=== PATIENT | female | born 1965 | race Caucasian/White ===

== ENCOUNTER → 2018-01-31 | Outpatient (CLI) | payer BC ==
[2018-01-31 16:43] VITALS: BP 115/61; PULSE 68; TEMP 97.8; BMI 56.0
--- NOTE | 2018-01-31 17:14 | P.HPBAR ---
Bariatric H&P - History & Physicial H&P Date: 01/31/18 History & Physicial: Visit/CC: initial clinic visit Patient initial contact: Initial weight: Initial weight in pounds: Height: 5 ft 5 in Initial BMI: Last weight: Current weight: 152.861 kg Current weight in pounds: 337.00 Current BMI: 56.0 [place] body weight (based on NIH guidelines): 56.699 kg Excess body weight loss: The patient is a 52 year-old F who presents for Bariatric Assessment. HPI: She is looking into the sleeve. She has a brother who had wieght loss surgery. Highest weight 350 pounds. Mild GERD. PLAN: 1. Get labs. 2. Follow-up shortly. Past Medical History Past Medical History: Diabetes Mellitus, Hyperlipidemia, Hypertension History of Any Multi-Drug Resistant Organisms: None Reported Past Surgical History: Cholecystectomy, Orthopedic Surgery, Tonsillectomy Additional Past Surgical History / Comment(s): bilateral knee arthroscopic surgery Past Anesthesia/Blood Transfusion Reactions: No Reported Reaction Past Psychological History: No Psychological Hx Reported Smoking Status: Never smoker Past Alcohol Use History: None Reported Surgical - Exam Vital Signs Temp Pulse BP 97.8 F 68 115/61 01/31/18 16:40 01/31/18 16:40 01/31/18 16:40 Bariatric Checklist Checklist: Plan: Checklist: EGD: 1. Hiatal hernia: 2. H. Pylori: HgbA1c: Vitamin D: Smoking: Never smoker Primary care physician referral: josefa doe Psychiatry clearance: Cardiology clearance: Sleep study: Diet journal: VTE risk score: VTE risk level: Rehab needs at discharge:
[2018-01-31 18:29] LABS: HCT 40.2 % (34.0-46.0); HGB 13.1 gm/dL (11.4-16.0); MCH 28.8 pg (25.0-35.0); MCHC 32.7 g/dL (31.0-37.0); MCV 88.2 fL (80.0-100.0); Mean Platelet Volume 7.5; Platelet Count 271 k/uL (150-450); RBC 4.56 m/uL (3.80-5.40); RDW 13.8 % (11.5-15.5); WBC 11.7 k/uL (3.8-10.6)
[2018-02-01 04:02] LABS: Iron Saturation 10.27 (12.00-45.00)
[2018-02-01 04:08] LABS: Albumin 4.8 g/dL (3.80-4.90); Anion Gap 11.1 mmol/L (4.00-12.00); Calcium 10.8 mg/dL (8.7-10.3); Carbon Dioxide 27.9 mmol/L (21.6-31.8); Globulin 1.6 g/dL (2.1-3.7); LDL Cholesterol,Calculated 106.4 mg/dL (0.0-131.0); Potassium 4.5 mmol/L (3.5-5.5); Total Bilirubin 0.4 mg/dL (0.3-1.2); Total Protein 6.4 g/dL (6.2-8.2); VLDL Calculation 35.6 mg/dL (5.00-40.00)
[2018-02-01 04:11] LABS: Vitamin D 25 Hydroxy 54.1 ng/mL (30.0-100.0)
[2018-02-01 04:35] LABS: Folate, Serum 15.1 ng/mL
== END ==
LOC: BARWHC3 15:07
PROVIDERS: ATTEND Surgery Plastic and Reconstructive Surgery
DX: E88.81 Metabolic syndrome and other insulin resistance (principal); E66.01 Morbid (severe) obesity due to excess calories; K21.9 Gastro-esophageal reflux disease without esophagitis; E44.0 Moderate protein-calorie malnutrition; E55.9 Vitamin D deficiency, unspecified; I11.9 Hypertensive heart disease without heart failure; G47.30 Sleep apnea, unspecified; Z68.43 Body mass index [BMI] 50.0-59.9, adult; Z90.49 Acquired absence of other specified parts of digestive tract; Z90.89 Acquired absence of other organs; Z98.890 Other specified postprocedural states
CPT/HCPCS: 36415; 80053; 80061; 82306; 82607; 82728; 82746; 83036; 83540; 83550; 84425; 84443; 85027; 99211

== ENCOUNTER 2018-03-05 09:00 | Day surgery (SDC) | payer BC ==
[2018-02-28 09:20] VITALS: BMI 56.0
--- NOTE | 2018-03-05 06:03 | P.GSHP ---
History of Present Illness H&P Date: 03/05/18 CHIEF COMPLAINT: GERD HISTORY OF PRESENT ILLNESS: The patient is a 52-year-old female who presents reports gastroesophageal reflux disease. Upper endoscopy was offered for further evaluation and management. PAST MEDICAL HISTORY: Please see list. PAST SURGICAL HISTORY: Please see list. MEDICATIONS: Please see list. ALLERGIES: Please see list. SOCIAL HISTORY: No illicit drug use FAMILY HISTORY: No reports of Crohn disease or ulcerative colitis. REVIEW OF ORGAN SYSTEMS: CONSTITUTIONAL: No reports of fevers or chills. GI: Denies any blood in stools or constipation. PHYSICAL EXAM: VITAL SIGNS: Stable GENERAL: Well-developed and pleasant in no acute distress. HEENT: No scleral icterus. Extraocular movements grossly intact. Moist buccal mucosa. NECK: Supple without lymphadenopathy. CHEST: Unlabored respirations. Equal bilateral excursions. CARDIOVASCULAR: Regular rate and rhythm. Distal 2+ pulses. ABDOMEN: Soft, nondistended. MUSCULOSKELETAL: No clubbing, cyanosis, or edema. ASSESSMENT: 1. Gastroesophageal reflux disease PLAN: 1. Recommend proceeding with an upper endoscopy Past Medical History Past Medical History: Diabetes Mellitus, Hyperlipidemia, Hypertension History of Any Multi-Drug Resistant Organisms: None Reported Past Surgical History: Cholecystectomy, Orthopedic Surgery, Tonsillectomy Additional Past Surgical History / Comment(s): bilateral knee arthroscopic surgery Past Anesthesia/Blood Transfusion Reactions: No Reported Reaction Smoking Status: Never smoker - Past Family History Mother Family Medical History: Cancer Medications and Allergies Home Medications Medication Instructions Recorded Confirmed Type Atorvastatin [Lipitor] 20 mg PO DAILY 02/01/18 02/28/18 History Levocetirizine Dihydrochloride 5 mg PO HS 02/01/18 02/28/18 History [Xyzal] Lisinopril-Hctz 20-25 mg 1 tab PO DAILY 02/01/18 02/28/18 History [Zestoretic 20-25] Metoprolol Succinate (ER) [Toprol 100 mg PO DAILY 02/01/18 02/28/18 History XL] Potassium Chloride ER [K-Dur 10] 10 meq PO DAILY 02/01/18 02/28/18 History metFORMIN HCL [Glucophage] 500 mg PO DAILY 02/01/18 02/28/18 History Aspirin EC [Ecotrin Low Dose] 81 mg PO DAILY 02/28/18 02/28/18 History Allergies Allergy/AdvReac Type Severity Reaction Status Date / Time Sulfa (Sulfonamide Allergy Rash/Hives Verified 02/28/18 09:16 Antibiotics)
[~2018-03-05 09:00] MED LIST: LACTATED RINGERS 1,000 ML IV SCH; LIDOCAINE 1% 20 ML VIAL (10MG/ML) FOR IV START INTRADERMA PRN
[2018-03-05 09:27] LABS: Glucose,Whole Blood 120 mg/dL (75-99)
[2018-03-05 09:29] VITALS: RESP 16; TEMP 97.1
[2018-03-05] MEDS ORDERED: PROPOFOL 10 MG/ML 20 ML VIAL IV ONE (10:16)
[2018-03-05 11:45] VITALS: BP 113/78; PULSE 63
--- NOTE | 2018-03-14 10:00 | P.PCN ---
Date of Procedure: 03/05/18 Description of Procedure: PREOPERATIVE DIAGNOSIS: Gastroesophageal reflux disease. Morbid obesity. POSTOPERATIVE DIAGNOSIS: Morbid obesity. Gastritis. Gastric ulcer along antrum with recent bleed Erosive esophagitis Gastroesophageal reflux disease. Diaphragmatic hiatal hernia OPERATION: Esophagogastroduodenoscopy with biopsies along antrum. SURGEON: Mayra Leyva MD ANESTHESIA: MAC. INDICATIONS: The patient is a 52-year-old female who presents with a history of reflux disease. Benefits and risks of the procedure were described. Informed consent was obtained. DESCRIPTION: The patient was brought into the endoscopy suite and laid in the left lateral decubitus position. An Olympus gastroscope was passed along the posterior oropharynx down to the distal esophagus where the squamocolumnar junction was encountered at 40 cm from the incisors. The stomach was entered and no bile reflux was found. Additional findings are listed below. Biopsies with cold forceps were obtained of the antrum. The first through third portion of the duodenum was examined and unremarkable. Retroflexion of the scope confirmed Hill grade 3 lower esophageal valve. The squamocolumnar junction demonstrated LA grade B erosive esophagitis. The stomach was desufflated. The patient tolerated the procedure well. FINDINGS: Squamocolumnar junction 37 cm from the incisors. Diaphragmatic hiatus at 40 cm. Hiatal hernia, 3 cm Hill grade 3 lower esophageal valve. LA grade B erosive esophagitis. No active duodenitis. Acute gastric ulcer along antrum with recent bleed Gastritis RECOMMENDATIONS: Upper endoscopy as needed. Plan - Discharge Summary New Discharge Prescriptions: No Action Levocetirizine Dihydrochloride [Xyzal] 5 mg PO HS metFORMIN HCL [Glucophage] 500 mg PO DAILY Potassium Chloride ER [K-Dur 10] 10 meq PO DAILY Metoprolol Succinate (ER) [Toprol XL] 100 mg PO DAILY Lisinopril-Hctz 20-25 mg [Zestoretic 20-25] 1 tab PO DAILY Atorvastatin [Lipitor] 20 mg PO DAILY Aspirin EC [Ecotrin Low Dose] 81 mg PO DAILY Omeprazole 40 mg PO DAILY #30 capsule.dr Discharge Medication List Atorvastatin [Lipitor] 20 mg PO DAILY 02/01/18 [History] Levocetirizine Dihydrochloride [Xyzal] 5 mg PO HS 02/01/18 [History] Lisinopril-Hctz 20-25 mg [Zestoretic 20-25] 1 tab PO DAILY 02/01/18 [History] Metoprolol Succinate (ER) [Toprol XL] 100 mg PO DAILY 02/01/18 [History] Potassium Chloride ER [K-Dur 10] 10 meq PO DAILY 02/01/18 [History] metFORMIN HCL [Glucophage] 500 mg PO DAILY 02/01/18 [History] Aspirin EC [Ecotrin Low Dose] 81 mg PO DAILY 02/28/18 [History] Omeprazole 40 mg PO DAILY #30 capsule. 03/05/18 [Rx] Follow up Appointment(s)/Referral(s): Mayra Leyva MD [STAFF PHYSICIAN] - As Needed Patient Instructions/Handouts: *Surgery [facility] - (Anesthesia) Endoscopy Discharge Instructions, Peptic Ulcer (DC), Hiatal Hernia (DC), Upper Endoscopy (DC) Activity/Diet/Wound Care/Special Instructions: SCRIPT AT [facility]. STOP ALEVE AND TAKE TYENOL FOR DISCOMFORT. Discharge Disposition: HOME SELF-CARE
== END 2018-03-05 11:44 | disposition home or self-care (01) ==
LOC: ORWHC2ENDO 09:00
PROVIDERS: ATTEND Surgery Plastic and Reconstructive Surgery
DX: K29.51 Unspecified chronic gastritis with bleeding (principal); K22.10 Ulcer of esophagus without bleeding; E11.9 Type 2 diabetes mellitus without complications; E78.5 Hyperlipidemia, unspecified; I10 Essential (primary) hypertension; K44.9 Diaphragmatic hernia without obstruction or gangrene; E66.01 Morbid (severe) obesity due to excess calories; Z68.43 Body mass index [BMI] 50.0-59.9, adult; Z79.84 Long term (current) use of oral hypoglycemic drugs; Z79.82 Long term (current) use of aspirin; Z79.899 Other long term (current) drug therapy; Z88.2 Allergy status to sulfonamides
CPT/HCPCS: 88305; 43239; J2704

== ENCOUNTER → 2018-04-02 | Outpatient (CLI) | payer BC ==
[2018-04-02 12:02] VITALS: BMI 55.1
== END ==
LOC: BARWHC3 08:42
PROVIDERS: ATTEND Surgery Plastic and Reconstructive Surgery
DX: E66.01 Morbid (severe) obesity due to excess calories (principal); Z71.3 Dietary counseling and surveillance; Z68.43 Body mass index [BMI] 50.0-59.9, adult
CPT/HCPCS: 97804

== ENCOUNTER → 2018-04-04 | Outpatient (CLI) | payer BC ==
--- NOTE | 2018-04-04 12:59 | P.PN ---
Subjective Progress Note Date: 04/04/18 DATE OF SERVICE: 04/04/2018 CHIEF COMPLAINT: Bariatric assessment HISTORY OF PRESENT ILLNESS: Whitney Shelby is a 52-year-old female who comes with lifelong morbid obesity. Her highest weight was 350 pounds. She is looking into the sleeve. She had an upper endoscopy showing gastric ulcers. She responded well to Omeprazole. At height of 5 feet 5 inches, her ideal body weight is 149 pounds. Her highest weight was 350 pounds. Today she comes in 332 pounds from 336 pounds, 2 months ago. She has lost 4 pounds in 2 months. Her body mass index highest was 58.4. Today her BMI is 55.4. She is 183 pounds overweight. PAST MEDICAL HISTORY: 1. Morbid obesity due to excess calories 2. Body mass index of 58.4, initial 3. Hyperlipidemia 4. Diabetes type 2, [id number] 5. Hypertensive heart disease 6. Seasonal ALLERGIES 7. Osteoarthritis bilateral knees PAST SURGICAL HISTORY: 1. Tonsillectomy 2. Cholecystectomy 3. Bilateral knee arthroscopy HOME MEDICATIONS: ALLERGIES: Home Medications Medication Instructions Recorded Confirmed Type Atorvastatin [Lipitor] 20 mg PO DAILY 02/01/18 03/05/18 History Levocetirizine Dihydrochloride 5 mg PO HS 02/01/18 03/05/18 History [Xyzal] Lisinopril-Hctz 20-25 mg 1 tab PO DAILY 02/01/18 03/05/18 History [Zestoretic 20-25] Metoprolol Succinate (ER) [Toprol 100 mg PO DAILY 02/01/18 03/05/18 History XL] Potassium Chloride ER [K-Dur 10] 10 meq PO DAILY 02/01/18 03/05/18 History metFORMIN HCL [Glucophage] 500 mg PO DAILY 02/01/18 03/05/18 History Aspirin EC [Ecotrin Low Dose] 81 mg PO DAILY 02/28/18 03/05/18 History Omeprazole 40 mg PO DAILY #30 capsule. 03/05/18 Rx Allergies Allergy/AdvReac Type Severity Reaction Status Date / Time Sulfa (Sulfonamide Allergy Rash/Hives Verified 03/05/18 09:14 Antibiotics) SOCIAL HISTORY: No Past tobacco use. FAMILY HISTORY: No family history of ulcerative colitis disease or Crohn's disease. Family history of morbid obesity. No lupus in the family. No reports of stomach or esophageal cancer. REVIEW OF ORGAN SYSTEMS: CONSTITUTIONAL: At height of 5 feet 5 inches, her ideal body weight is 149 pounds. Her highest weight was 350 pounds. Her body mass index highest was 58.4 HEENT: Denies any active troubles with vision or hearing. No troubles with swallowing. ENDOCRINE: Has diabetes. No hypothyroidism. CARDIOVASCULAR: No reports of palpitations or heart attacks or chest pain. RESPIRATORY: Has daytime somnolence. No asthma. GI: Denies any bright red blood per rectum. No diarrhea. No constipation. MUSCULOSKELETAL: Has lower back pain and joint pain. Has osteoarthritis of the knees. NEURO: No headaches. No seizure disorders. PSYCH: No depression. No suicidal ideation. RHEUMATOLOGIC: No lupus. No rheumatoid arthritis. HEMATOLOGIC: Denies any abnormal bleeding or bruising. No personal history of DVTs. SKIN: No rash. No skin cancer. PHYSICAL EXAM: VITAL SIGNS: Height 5 foot 5 inches, weight 336 pounds. BMI 56.1 Vital Signs Temp 98 F 04/04/18 13:34 Pulse 66 04/04/18 13:34 Resp BP 123/74 04/04/18 13:34 Pulse Ox GENERAL: Well-developed in no acute distress. HEENT: No scleral icterus. Extraocular movements grossly intact. Hears conversational speech. No nasal drainage. NECK: Supple without lymphadenopathy. CHEST: Nonlabored respirations with equal bilateral excursions. CARDIOVASCULAR: Regular rate and regular rhythm. Distal 2+ pulses. ABDOMEN: Obese, soft, nontender, nondistended. MUSCULOSKELETAL: No clubbing, cyanosis. Gross strength 5/5 distal lower extremities. NEURO: No focal or lateralizing signs. Cranial nerves 2 through 12 grossly within normal limits. PSYCH: Appropriate affect. Alert and oriented to person, place and time. SKIN: Good skin turgor. Well perfused. LABS: Labs reviewed. EGD FINDINGS: Squamocolumnar junction 37 cm from the incisors. Diaphragmatic hiatus at 40 cm. Hiatal hernia, 3 cm Hill grade 3 lower esophageal valve. LA grade B erosive esophagitis. No active duodenitis. Acute gastric ulcer along antrum with recent bleed Gastritis Final Pathologic Diagnosis GASTRIC ANTRUM, BIOPSY: Chronic gastritis with reactive mucosal changes. Helicobacter organisms are not identified on routine H+E stained sections. ASSESSMENT: 1. Morbid obesity due to excess calories 2. Body mass index of 58.4, initial 3. Hyperlipidemia 4. Diabetes type 2, [id number] 5. Hypertensive heart disease 6. Seasonal ALLERGIES 7. Osteoarthritis bilateral knees 8. Hiatal hernia 9. Gastric ulcer 10. Chronic gastritis PLAN: 1. Bariatric options between a sleeve, band and a Cris-en-Y gastric bypass were reviewed in detail. The patient elected for a sleeve gastrectomy. Robotic assisted approach described. 2. The [place] [facility] Data was also reviewed with benefits and risks as described. 3. An 8 page second-generation bariatric consent form was reviewed in detail including potential of bleeding, infection, leaks, adequate weight loss, nutritional deficiencies which the patient demonstrated understanding of the risks. 4. A 2 week high-protein low caloric 800 kcal diet described to address hepatomegaly. 5. Preoperative labs including complete metabolic panel and CBC with type and screen recommended. 6. DVT prophylaxis per [place] [facility]. 7. Antibiotic prophylaxis. 8. Inpatient hospitalization anticipated for more than 2 nights. 9. All questions and concerns were addressed with the patient. 10. We went over expections for surgery. 11. Sleeve gastrectomy expectations reviewed.
[2018-04-04 13:36] VITALS: BP 123/74; PULSE 66; TEMP 98; BMI 55.4
== END | disposition home or self-care (01) ==
LOC: BARWHC3 11:54
PROVIDERS: ATTEND Surgery Plastic and Reconstructive Surgery
DX: E66.01 Morbid (severe) obesity due to excess calories (principal); K25.9 Gastric ulcer, unspecified as acute or chronic, without hemorrhage or perforation; E78.5 Hyperlipidemia, unspecified; E11.9 Type 2 diabetes mellitus without complications; I11.9 Hypertensive heart disease without heart failure; J30.2 Other seasonal allergic rhinitis; K29.50 Unspecified chronic gastritis without bleeding; K44.9 Diaphragmatic hernia without obstruction or gangrene; M17.0 Bilateral primary osteoarthritis of knee; Z90.49 Acquired absence of other specified parts of digestive tract; Z90.89 Acquired absence of other organs; Z98.890 Other specified postprocedural states; Z79.84 Long term (current) use of oral hypoglycemic drugs; Z68.43 Body mass index [BMI] 50.0-59.9, adult; Z79.82 Long term (current) use of aspirin; Z79.899 Other long term (current) drug therapy; Z88.2 Allergy status to sulfonamides
CPT/HCPCS: 99211

== ENCOUNTER → 2018-05-05 | Outpatient (CLI) | payer BC ==
[2018-05-05 11:32] LABS: Basophils % (A) 1 %; Eosinophils # (A) 0.1 k/uL (0-0.7); Eosinophils % (A) 2 %; HCT 38.7 % (34.0-46.0); HGB 12.6 gm/dL (11.4-16.0); Lymphocytes # (A) 1.4 k/uL (1.0-4.8); Lymphocytes % (A) 18 %; MCH 28.9 pg (25.0-35.0); MCHC 32.5 g/dL (31.0-37.0); MCV 88.9 fL (80.0-100.0); Mean Platelet Volume 7.5; Monocytes # (A) 0.5 k/uL (0-1.0); Monocytes % (A) 6 %; Neutrophils # (A) 5.4 k/uL (1.3-7.7); Neutrophils % (A) 72 %; Platelet Count 245 k/uL (150-450); RBC 4.35 m/uL (3.80-5.40); WBC 7.5 k/uL (3.8-10.6)
[2018-05-05 11:51] LABS: Albumin 4.6 g/dL (3.5-5.0); Calcium 10.4 mg/dL (8.4-10.2); Potassium 5.2 mmol/L (3.5-5.1); Total Bilirubin 0.6 mg/dL (0.2-1.3); Total Protein 7.2 g/dL (6.3-8.2)
== END ==
LOC: LABPAT 10:50
PROVIDERS: ATTEND Surgery Plastic and Reconstructive Surgery
DX: Z01.812 Encounter for preprocedural laboratory examination (principal)
CPT/HCPCS: 36415; 80053; 85025

== ENCOUNTER 2018-05-14 05:49 | Inpatient (IN) | payer BC ==
[~2018-05-14 05:49] MED LIST changes: +DEXAMETHASONE SOD PHOSPHATE 10 MG/ML 1 ML VIAL IV ONE; -LACTATED RINGERS 1,000 ML IV SCH; -LIDOCAINE 1% 20 ML VIAL (10MG/ML) FOR IV START INTRADERMA PRN; +MORPHINE SULFATE 4 MG/ML SYRINGE IV PRN; +ONDANSETRON 4 MG/2 ML VIAL IVP ONE; +ceFAZolin 3 GM in SODIUM CHLORIDE 0.9% 100 ML IVPB ONE
[2018-05-14] MEDS ORDERED: PANTOPRAZOLE 40 MG/10 ML VIAL IV STA (05:57)
[2018-05-14] MEDS ORDERED: CHLORHEXIDINE GLUCONATE 15 ML CUP MUCOUS MEM ONE (05:57)
[2018-05-14] MEDS ORDERED: ENOXAPARIN 40 MG/0.4 ML SYRINGE SQ STA (05:57)
[2018-05-14] MEDS ORDERED: SCOPOLAMINE 1.5MG/72HR PATCH TRANSDERM STA (05:57)
--- NOTE | 2018-05-14 06:06 | P.GSHP ---
History of Present Illness H&P Date: 05/14/18 DATE OF SERVICE: 05/14/2018 CHIEF COMPLAINT: Morbid obesity HISTORY OF PRESENT ILLNESS: Whitney Shelby is a 52-year-old female who comes with lifelong morbid obesity. Her highest weight was 350 pounds. She is looking into the sleeve. At height of 5 feet 5 inches, her ideal body weight is 149 pounds. Her highest weight was 350 pounds. Today she comes in 333 pounds from 332 pounds, 1 monthsago. She has gained 1 pound. Her body mass index highest was 58.4. Today her BMI is 55.4. She is 184 pounds overweight. PAST MEDICAL HISTORY: 1. Morbid obesity due to excess calories 2. Body mass index of 58.4, initial 3. Hyperlipidemia 4. Diabetes type 2, [id number] 5. Hypertensive heart disease 6. Seasonal ALLERGIES 7. Osteoarthritis bilateral knees PAST SURGICAL HISTORY: 1. Tonsillectomy 2. Cholecystectomy 3. Bilateral knee arthroscopy HOME MEDICATIONS: ALLERGIES: Home Medications Medication Instructions Recorded Confirmed Type Atorvastatin [Lipitor] 20 mg PO DAILY 02/01/18 03/05/18 History Levocetirizine Dihydrochloride 5 mg PO HS 02/01/18 03/05/18 History [Xyzal] Lisinopril-Hctz 20-25 mg 1 tab PO DAILY 02/01/18 03/05/18 History [Zestoretic 20-25] Metoprolol Succinate (ER) [Toprol 100 mg PO DAILY 02/01/18 03/05/18 History XL] Potassium Chloride ER [K-Dur 10] 10 meq PO DAILY 02/01/18 03/05/18 History metFORMIN HCL [Glucophage] 500 mg PO DAILY 02/01/18 03/05/18 History Aspirin EC [Ecotrin Low Dose] 81 mg PO DAILY 02/28/18 03/05/18 History Omeprazole 40 mg PO DAILY #30 capsule. 03/05/18 Rx Allergies Allergy/AdvReac Type Severity Reaction Status Date / Time Sulfa (Sulfonamide Allergy Rash/Hives Verified 03/05/18 09:14 Antibiotics) SOCIAL HISTORY: No Past tobacco use. FAMILY HISTORY: No family history of ulcerative colitis disease or Crohn's disease. Family history of morbid obesity. No lupus in the family. No reports of stomach or esophageal cancer. REVIEW OF ORGAN SYSTEMS: CONSTITUTIONAL: At height of 5 feet 5 inches, her ideal body weight is 149 pounds. Her highest weight was 350 pounds. Her body mass index highest was 58.4 HEENT: Denies any active troubles with vision or hearing. No troubles with swallowing. ENDOCRINE: Has diabetes. No hypothyroidism. CARDIOVASCULAR: No reports of palpitations or heart attacks or chest pain. RESPIRATORY: Has daytime somnolence. No asthma. GI: Denies any bright red blood per rectum. No diarrhea. No constipation. MUSCULOSKELETAL: Has lower back pain and joint pain. Has osteoarthritis of the knees. NEURO: No headaches. No seizure disorders. PSYCH: No depression. No suicidal ideation. RHEUMATOLOGIC: No lupus. No rheumatoid arthritis. HEMATOLOGIC: Denies any abnormal bleeding or bruising. No personal history of DVTs. SKIN: No rash. No skin cancer. PHYSICAL EXAM: VITAL SIGNS: Height 5 foot 5 inches, weight 336 pounds. BMI 56.1 GENERAL: Well-developed in no acute distress. HEENT: No scleral icterus. Extraocular movements grossly intact. Hears conversational speech. No nasal drainage. NECK: Supple without lymphadenopathy. CHEST: Nonlabored respirations with equal bilateral excursions. CARDIOVASCULAR: Regular rate and regular rhythm. Distal 2+ pulses. ABDOMEN: Obese, soft, nontender, nondistended. MUSCULOSKELETAL: No clubbing, cyanosis. Gross strength 5/5 distal lower extremities. NEURO: No focal or lateralizing signs. Cranial nerves 2 through 12 grossly within normal limits. PSYCH: Appropriate affect. Alert and oriented to person, place and time. SKIN: Good skin turgor. Well perfused. LABS: Labs reviewed. ASSESSMENT: 1. Morbid obesity due to excess calories 2. Body mass index of 58.4, initial 3. Hyperlipidemia 4. Diabetes type 2, [id number] 5. Hypertensive heart disease 6. Seasonal ALLERGIES 7. Osteoarthritis bilateral knees 8. Hiatal hernia 9. Gastric ulcer 10. Chronic gastritis 11. Renal insufficiency 12. Hyperkalemia PLAN: 1. Bariatric options between a sleeve, band and a Cris-en-Y gastric bypass were reviewed in detail. The patient elected for a sleeve gastrectomy. Robotic assisted approach described. 2. The [place] [facility] Data was also reviewed with benefits and risks as described. 3. An 8 page second-generation bariatric consent form was reviewed in detail including potential of bleeding, infection, leaks, adequate weight loss, nutritional deficiencies which the patient demonstrated understanding of the risks. 4. A 2 week high-protein low caloric 800 kcal diet described to address hepatomegaly. 5. Preoperative labs including complete metabolic panel and CBC with type and screen recommended. 6. DVT prophylaxis per [place] [facility]. 7. Antibiotic prophylaxis. 8. Inpatient hospitalization anticipated for more than 2 nights. 9. All questions and concerns were addressed with the patient. 10. We went over expections for surgery. 11. Sleeve gastrectomy expectations reviewed. 12. Repeat CMP with optimal fluid resuscitation and lowered protein intake advised. 13. Discontinue exogenous source of potassium Past Medical History Past Medical History: Diabetes Mellitus, GERD/Reflux, Hyperlipidemia, Hypertension, Osteoarthritis (OA) Additional Past Medical History / Comment(s): EGD SHOWED GASTRIC ULCER, HIATAL HERNIA. PAIN IN KNEES. History of Any Multi-Drug Resistant Organisms: None Reported Past Surgical History: Cholecystectomy, Orthopedic Surgery, Tonsillectomy Additional Past Surgical History / Comment(s): bilateral knee arthroscopic surgery. EGD Past Anesthesia/Blood Transfusion Reactions: No Reported Reaction Smoking Status: Never smoker - Past Family History Mother Family Medical History: Cancer Medications and Allergies Home Medications Medication Instructions Recorded Confirmed Type Atorvastatin [Lipitor] 20 mg PO DAILY 02/01/18 05/04/18 History Levocetirizine Dihydrochloride 5 mg PO HS 02/01/18 05/04/18 History [Xyzal] Lisinopril-Hctz 20-25 mg 1 tab PO DAILY 02/01/18 05/04/18 History [Zestoretic 20-25] Metoprolol Succinate (ER) [Toprol 100 mg PO DAILY 02/01/18 05/04/18 History XL] Potassium Chloride ER [K-Dur 10] 10 meq PO DAILY 02/01/18 05/04/18 History metFORMIN HCL [Glucophage] 500 mg PO DAILY 02/01/18 05/04/18 History Omeprazole 40 mg PO DAILY #30 capsule. 03/05/18 05/04/18 Rx Ferrous Sulfate [Iron (65 MG 65 mg PO BID 04/03/18 05/04/18 History Elemental)] Acetaminophen [Tylenol Arthritis] 1,300 mg PO BID 05/04/18 05/04/18 History Calcium Carbonate [Tums] 500 mg PO QID PRN 05/07/18 05/07/18 History Allergies Allergy/AdvReac Type Severity Reaction Status Date / Time Sulfa (Sulfonamide Allergy Rash/Hives Verified 05/04/18 16:08 Antibiotics)
[2018-05-14] MEDS: LACTATED RINGERS 1,000 ML IV SCH ×2 (06:43→17:07)
[2018-05-14 06:45] LABS: Glucose,Whole Blood 98 mg/dL (75-99)
[2018-05-14] MEDS ORDERED: LIDOCAINE 1% 20 ML VIAL (10MG/ML) FOR IV START INTRADERMA ONE (06:46)
[2018-05-14] MEDS ORDERED: DEXAMETHASONE SOD PHOS (MDV) 100 MG/10 ML VIAL IV ONE (06:58)
[2018-05-14] MEDS ORDERED: ONDANSETRON 4 MG/2 ML VIAL IVP ONE (06:59)
[2018-05-14 07:17] LABS: Albumin 4.6 g/dL (3.5-5.0); Calcium 10.3 mg/dL (8.4-10.2); Potassium 4.8 mmol/L (3.5-5.1); Total Bilirubin 0.6 mg/dL (0.2-1.3); Total Protein 7.1 g/dL (6.3-8.2)
[2018-05-14] MEDS ORDERED: ROCURONIUM BROMIDE 10 MG/ML 10 ML VIAL IV ONE (07:25)
[2018-05-14] MEDS ORDERED: NEOSTIGMINE 1 MG/ML 10 ML VIAL ONE (07:25)
[2018-05-14] MEDS ORDERED: ePHEDrine SULFATE/0.9% NACL/PF 50 MG/5 ML SYRINGE IV ONE (07:25)
[2018-05-14] MEDS ORDERED: SUCCINYLCHOLINE CHLORIDE 100 MG/5 ML SYR IV ONE (07:25)
[2018-05-14] MEDS ORDERED: GLYCOPYRROLATE 0.2 MG/ML 2 ML VIAL ONE (07:25)
[2018-05-14] MEDS ORDERED: fentaNYL (PF) 50 MCG/ML 2 ML AMP ONE (07:25)
[2018-05-14] MEDS ORDERED: LIDOCAINE 1% INJ 10MG/ML (20 ML MDV) ONE (07:25)
[2018-05-14] MEDS ORDERED: MIDAZOLAM 2 MG/2 ML VIAL ONE (07:25)
[2018-05-14] MEDS ORDERED: PROPOFOL 10 MG/ML 20 ML VIAL IV ONE (07:25)
[2018-05-14] MEDS ORDERED: PHENYLEPHRINE-0.9% NACL SYG 1 MG/10 ML SYRINGE ONE (07:25)
[2018-05-14] MEDS ORDERED: BUPIVACAIN-EPI 0.5%-1:200,000 30 ML VIAL SQ ONE (07:27)
[2018-05-14] MEDS ORDERED: LACTATED RINGERS 1,000 ML IV ONE (08:16)
[2018-05-14] MEDS ORDERED: IV FLUID CONTINUATION 1,000 ML IV ONE ×5 (09:50)
[2018-05-14] MEDS ORDERED: NALOXONE 0.4 MG/ML 1 ML VIAL IV PRN (10:23)
[2018-05-14 10:27] LABS: Glucose,Whole Blood 158 mg/dL (75-99)
[2018-05-14] MEDS: HYDROmorphone 0.5 MG/0.5 ML SYRINGE IVP PRN ×4 (10:29→10:52)
[2018-05-14] MEDS ORDERED: ONDANSETRON 4 MG/2 ML VIAL IVP PRN (10:32)
--- NOTE | 2018-05-14 10:50 | P.OP ---
Date of Procedure: 05/14/18 Description of Procedure: SURGEON: CLINT REINOSO MD PREOPERATIVE DIAGNOSES: 1. Morbid obesity due to excess calories 2. Body mass index of 58.4, initial 3. Hyperlipidemia 4. Diabetes type 2, [id number] 5. Hypertensive heart disease 6. Seasonal ALLERGIES 7. Osteoarthritis bilateral knees 8. Hiatal hernia 9. Gastric ulcer 10. Chronic gastritis 11. Renal insufficiency 12. Hyperkalemia POSTOPERATIVE DIAGNOSES: 1. Morbid obesity due to excess calories 2. Body mass index of 58.4, initial 3. Hyperlipidemia 4. Diabetes type 2, [id number]-umfoiundn 5. Hypertensive heart disease 6. Seasonal ALLERGIES 7. Osteoarthritis bilateral knees 8. Hiatal hernia 9. Gastric ulcer 10. Chronic gastritis 11. Renal insufficiency 12. Hyperkalemia OPERATION: 1. Robotic assisted daVinci Xi laparoscopic sleeve gastrectomy with 40-Palauan bougie, multiport. 2. Intraoperative esophagogastroduodenoscopy. ANESTHESIA: Gen. local anesthetic ESTIMATED BLOOD LOSS: 5 mL SPECIMENS REMOVED: Sleeve gastrectomy COMPLICATIONS: None. INDICATIONS: Whitney Shelby is a 52-year-old female who comes with lifelong morbid obesity. Her highest weight was 350 pounds. She is looking into the sleeve. At height of 5 feet 5 inches, her ideal body weight is 149 pounds. Her highest weight was 350 pounds. Today she comes in 314 pounds from 333 pounds from 332 pounds, 1 month ago. She has lost 18 pounds. Her body mass index highest was 58.4. Today her BMI is 52.5. She is 165 pounds overweight. At height of 5 feet 5.5 inches, her ideal body weight is 149 pounds. She comes in for sleeve gastrectomy. All surgical options for morbid obesity had been described using the [place] bariatric surgery collaborative comorbidity resolution including complication risk score. A second-generation bariatric consent form was described in detail including the possibility of protein malnutrition, leaks, gastric stricture, venous thrombosis, gastroesophageal reflux disease, need for further surgery for which she demonstrated understanding. Benefits and risks of the procedure were described at length. Informed consent was obtained. DESCRIPTION: The patient was brought into the operating room theater. Preoperatively she had received Lovenox subcutaneously for DVT prophylaxis. Additionally she had Peridex oral solution as an oral decontaminant. After general induction, the abdomen was prepped and draped in standard sterile fashion. An Ioban draping was placed along the abdomen. Dodd catheter was placed. A robotic da Anju Xi system was prepped and primed. The xiphoid to umbilicus measured 23 cm. At 15 cm from the xiphoid, proposed port sites were marked with indelible marker along the anterior axillary line bilaterally, mid axillary line bilaterally with each ports were marked 10 to 15 cm from each other. The medical assistant supervisor port was marked along the left lateral abdominal wall. The robotic stapler port was marked for the right midclavicular line. A 5 mm 0 degrees laparoscopic trocar entry was performed along the left upper quadrant. The abdomen was insufflated to 15 mmHg pressure he tolerated well. Diagnostic laparoscopy demonstrated no injury to bowel, viscera, or mesentery. The liver surface was remarkable for mild hepatomegaly. No injury had occurred to the small bowel or viscera. Along the hiatus no evidence of large prominent hiatal hernia. A 8 mm port was placed along the right upper abdominal wall after exchanging the 5 mm port. A separate 8 mm port was placed along the left lateral abdominal wall. Please note that the ports were placed at least 20 cm away from the target anatomy. Care was taken to check each robotic arms were safely away from col lision with the bed or the patient. At the epigastrium, a median sized Ivan liver retractor was placed under direct visualization with the Iron Inspector Fuel Hose placed under the right shoulder of the patient. Next, 12-mm robot stapler port was placed along the right upper quadrant. The camera 8-mm port was maintained along the epigastrium, The patient was repositioned in reverse Trendelenburg position at 17-degrees after lowering the bed. The robot was docked along the left side of the patient. Using a grasper for arm 4, a veseel sealer for arm 3, including grasper for arm 1, the robotic system was docked and primed as described. Instruments were interchanged by the medical assistant supervisor for stapler loads. The camera was placed at 30-degrees down. I had sat at the console. The pylorus was identified and 6 cm proximally along the greater curvature of the stomach, the short gastrics were mobilized upwards to the angle of His using a vessel sealer. Hemostasis was excellent during this portion of the procedure. Next, the upper pole of the stomach was adherent to the left kalli, which was gently dissected free using atraumatic grasper. The nursing supervisor type bar and segment placed a 40-Palauan blunted bougie into the stomach. Robotic stapler green loads 60 mm x 1, followed by blue 60 mm x 5 loads were used to create the sleeve. Initial firing was across the antrum of the stomach towards the angle of His. The staple line was completely hemostatic and linear without corkscrewing. Hemostasis was excellent. The space from the angularis incisura of the sleeve was approximately 4 cm. I then went to the head of the bed to perform the intraoperative esophagogastroduodenoscopy leak test. The upper pole of the stomach was bathed using normal saline solution. The scope was withdrawn with careful inspection along the staple line for which no leaks were found along the entire length. Additionally,the sleeve was completely hemostatic without any encroachment along the angularis incisura. Its topology was a soft "J". No stricture was encountered upon placement of the scope. The GI tract was desufflated. The patient tolerated this portion of the procedure well. The scope was completely withdrawn. The robot was undocked. I then rescrubbed into case, whereby the irrigation fluid was aspirated from the abdominal cavity. Tisseel fibrin sealant was placed along the entire staple length. Once dried the Ivan liver retractor was removed. Attention was now brought to removal of the specimen. The distal end of the sleeve gastrectomy specimen was brought out through the 12 mm port at the left upper quadrant. The specimen was gently removed en total.No contamination had occurred during this process. All instruments and pneumoperitoneum including irrigation fluid was removed from the abdominal cavity. The 12 mm port site was closed using 0-Vicryl and Barney Epps and irrigated with diluted hydrogen peroxide. The final incisions were closed using subcuticular interrupted suture of 4-0 Monocryl. Dermabond was applied to the skin once the skin had been cleansed. OptiFoam dressing was placed along the stomach extraction site. At the end of the procedure, needle, sponge, and instrument count was verified correct by the smt technician. The patient was taken to the postanesthesia care unit in stable condition. She had tolerated the procedure well. Intraoperative films and findings were reviewed with the patient's family. FINDINGS: 1. Negative intraoperative esophagogastrojejunoscopy leak test. 2. Mild hepatomegaly without large hiatus hernia. 3. Total of 6 staplers used including 1 - 60 mm green robot collins and 5 - 60 mm blue robot loads used to create the gastric sleeve. 4. Xiphoid to umbilicus of 23 cm. 5. Trocars placed 15 cm from xiphoid process 6. Sleeve gastrectomy 17 x 5 cm (measured after formalin exposure) 7. Console time 44 minutes
[2018-05-14 11:49] VITALS: BMI 52.4
[2018-05-14] MEDS ORDERED: ACETAMINOPHEN IV (For NPO) 1,000 MG in EMPTY BAG 1 BAG IVPB ONE (12:00)
[2018-05-14 12:07] LABS: Glucose,Whole Blood 134 mg/dL (75-99)
[2018-05-14] MEDS: 0.9% NACL WITH KCL 20 MEQ/L 1,000 ML IV SCH (12:29)
[2018-05-14] MEDS: ALBUTEROL NEBULIZED 2.5 MG/3 ML INHALATION SCH ×3 (12:30→20:34)
[2018-05-14] MEDS: SIMETHICONE 40 MG/0.6 ML DROPS 2,000 MG/30 ML BOTTLE PO SCH ×2 (13:29→17:49)
[2018-05-14] MEDS: HYOSCYAMINE ORAL DROPS 1.875 MG/15 ML BOTTLE PO SCH ×2 (13:30→17:48)
[2018-05-14] MEDS: INSULIN ASPART (NovoLOG) 100 UNIT/ML VIAL SQ SCH ×2 (13:36→17:48)
[2018-05-14] MEDS: HYDROmorphone 1 MG/ML 1 ML SYRINGE IVP PRN ×2 (15:27→21:30)
[2018-05-14 17:05] LABS: Glucose,Whole Blood 159 mg/dL (75-99)
--- NOTE | 2018-05-14 18:50 | P.PN ---
Progress Note - Text Progress Note Date: 05/14/18 Patient seen and evaluated. Intraoperative findings described. Patient clinically doing well without nausea. Anticipated discharge tomorrow afternoon after IV fluid hydration including iron supplement. Follow-up with the bariatric center in 4 days. Medication changes include discontinuing lisinopril hydrochlorothiazide including potassium supplement and likely Glucophage secondary to acute tubular necrosis from medications
[2018-05-14 21:30] VITALS: RESP 16
[2018-05-15] LABS: Glucose,Whole Blood 136 mg/dL (75-99)
[2018-05-15] MEDS: 0.9% NACL WITH KCL 20 MEQ/L 1,000 ML IV SCH (00:12)
[2018-05-15] MEDS: SODIUM CHLORIDE 0.9% 1,000 ML IV SCH ×2 (00:14→08:18)
[2018-05-15] MEDS: HYOSCYAMINE ORAL DROPS 1.875 MG/15 ML BOTTLE PO SCH ×3 (00:15→12:00)
[2018-05-15] MEDS: INSULIN ASPART (NovoLOG) 100 UNIT/ML VIAL SQ SCH ×3 (00:17→12:03)
[2018-05-15] MEDS: SIMETHICONE 40 MG/0.6 ML DROPS 2,000 MG/30 ML BOTTLE PO SCH ×3 (00:17→11:59)
[2018-05-15] MEDS: HYDROcodone/APAP 15 ML SOLUTION PO PRN ×2 (05:21→12:01)
[2018-05-15 05:39] LABS: Glucose,Whole Blood 123 mg/dL (75-99)
[2018-05-15 07:36] VITALS: PULSE 69; TEMP 97.6
[2018-05-15 07:58] LABS: Basophils % (A) 0 %; Eosinophils % (A) 0 %; HCT 34.8 % (34.0-46.0); HGB 11.4 gm/dL (11.4-16.0); Lymphocytes # (A) 0.6 k/uL (1.0-4.8); Lymphocytes % (A) 6 %; MCH 29.1 pg (25.0-35.0); MCHC 32.7 g/dL (31.0-37.0); Mean Platelet Volume 7.8; Monocytes # (A) 0.4 k/uL (0-1.0); Monocytes % (A) 5 %; Neutrophils # (A) 8.4 k/uL (1.3-7.7); Neutrophils % (A) 88 %; Platelet Count 204 k/uL (150-450); RBC 3.91 m/uL (3.80-5.40); RDW 14.1 % (11.5-15.5); WBC 9.6 k/uL (3.8-10.6)
[2018-05-15] MEDS ORDERED: 0.9% NACL WITH KCL 20 MEQ/L 1,000 ML IV SCH (08:00)
[2018-05-15 08:06] LABS: Calcium 9.7 mg/dL (8.4-10.2); Magnesium 1.3 mg/dL (1.6-2.3); Phosphorus 3.3 mg/dL (2.5-4.5); Potassium 5.3 mmol/L (3.5-5.1)
[2018-05-15 08:16] VITALS: BP 102/66
--- NOTE | 2018-05-15 08:59 | FL ---
EXAMINATION TYPE: FL esophagus cervic/pharynx DATE OF EXAM: 05/15/2018 CLINICAL HISTORY: Postop gastric sleeve TECHNIQUE: Limited esophagram is performed utilizing 25 oz of Isovue-370. A total of 50 seconds of f luoroscopic time was utilized during procedure. A fluoroscopic images were saved during the examinati on. FINDINGS: The patient swallowed contrast without difficulty or delay. Esophageal peristalsis and mo tility are within normal limits. There is mildly delayed flow of contrast along the diaphragmatic hia tus into the stomach, there is no evidence of contrast extravasation to suggest leak. No hiatal herni a is seen. Patient remains asymptomatic. IMPRESSION: No evidence of leak with mild delay at the gastroesophageal junction likely related to po stoperative edema status post gastric sleeve.
[2018-05-15] MEDS ORDERED: SODIUM FERRIC GLUCONAT-SUCROSE 125 MG in SODIUM CHLORIDE 0.9% 100 ML IVPB SCH (09:00)
[2018-05-15] MEDS ORDERED: ENOXAPARIN 40 MG/0.4 ML SYRINGE SQ SCH (09:00)
[2018-05-15] MEDS ORDERED: PANTOPRAZOLE 40 MG/10 ML VIAL IV SCH (09:00)
[2018-05-15] MEDS: ALBUTEROL NEBULIZED 2.5 MG/3 ML INHALATION SCH ×2 (09:43→12:40)
[2018-05-15] MEDS: MAGNESIUM SULFATE-D5W PMX 1 GM in DEXTROSE/WATER 1 100ML.BAG IVPB SCH ×4 (10:09→13:43)
[2018-05-15 12:01] LABS: Glucose,Whole Blood 124 mg/dL (75-99)
--- NOTE | 2018-05-15 15:20 | P.DS ---
Providers Date of admission: 05/14/18 05:49 Expected date of discharge: 05/15/18 Attending physician: aMyra Leyva Primary care physician: [facility] Course: 52-year-old female who underwent elective robotic-assisted da Anju Xi laparoscopic sleeve gastrectomy with Dr. Leyva on 05/14/2018. The patient is doing well postoperatively without any immediate complications. Postop esophagogram completed without evidence of obstruction. She has been tolerating liquids. She denies nausea or vomiting. Pain is controlled with oral medications. Patient is hemodynamically stable. She is stable for discharge home today. She is to follow up with Dr. Leyva. Please see EMR for further hospital course details. DISCHARGE DIAGNOSIS: 1. Morbid obesity due to excess calories 2. Body mass index of 58.4, initial 3. Hyperlipidemia 4. Diabetes type 2, [id number]-[id number] 5. Hypertensive heart disease 6. Seasonal ALLERGIES 7. Osteoarthritis bilateral knees 8. Hiatal hernia 9. Gastric ulcer 10. Chronic gastritis 11. Renal insufficiency 12. Hyperkalemia Nurse practitioner note has been reviewed by physician. Signing provider agrees with the documented findings, assessment, and plan of care. Patient Condition at Discharge: Stable Plan - Discharge Summary Discharge Rx Participant: Yes New Discharge Prescriptions: New Bisacodyl [Dulcolax] 5 mg PO DAILY PRN #10 tablet. PRN Reason: Constipation Simethicone 40 mg/0.6 ml Drops [Mylicon Drops] 40 mg PO PCHS PRN #30 ml PRN Reason: Gas HYDROcodone/APAP [[place] Elixir 7.5-325Mg/15Ml] 30 ml PO Q6H PRN #360 solution PRN Reason: Pain Omeprazole 40 mg PO DAILY #30 capsule. Ondansetron Odt [Zofran Odt] 4 mg PO Q8HR PRN #9 tab PRN Reason: Nausea Continue Levocetirizine Dihydrochloride [Xyzal] 5 mg PO HS Metoprolol Succinate (ER) [Toprol XL] 100 mg PO DAILY Discontinued metFORMIN HCL [Glucophage] 500 mg PO DAILY Potassium Chloride ER [K-Dur 10] 10 meq PO DAILY Lisinopril-Hctz 20-25 mg [Zestoretic 20-25] 1 tab PO DAILY Atorvastatin [Lipitor] 20 mg PO DAILY Omeprazole 40 mg PO DAILY #30 capsule. Ferrous Sulfate [Iron (65 MG Elemental)] 325 mg PO BID Acetaminophen [Tylenol Arthritis] 1,300 mg PO BID Calcium Carbonate [Tums] 500 mg PO QID PRN PRN Reason: GERD Discharge Medication List Levocetirizine Dihydrochloride [Xyzal] 5 mg PO HS 02/01/18 [History] Metoprolol Succinate (ER) [Toprol XL] 100 mg PO DAILY 02/01/18 [History] Bisacodyl [Dulcolax] 5 mg PO DAILY PRN #10 tablet. 05/15/18 [Rx] HYDROcodone/APAP [[place] Elixir 7.5-325Mg/15Ml] 30 ml PO Q6H PRN #360 solution 05/15/18 [Rx] Omeprazole 40 mg PO DAILY #30 capsule. 05/15/18 [Rx] Ondansetron Odt [Zofran Odt] 4 mg PO Q8HR PRN #9 tab 05/15/18 [Rx] Simethicone 40 mg/0.6 ml Drops [Mylicon Drops] 40 mg PO PCHS PRN #30 ml 05/15/18 [Rx] Follow up Appointment(s)/Referral(s): Bariatric Center,. [NON-STAFF] - 05/18/18 10:00 am Patient Instructions/Handouts: Nutrition after Bariatric Surgery (DC), Laparoscopic Sleeve Gastrectomy (DC) Activity/Diet/Wound Care/Special Instructions: NO lifting over 4 pounds in 4 weeks. May shower. No bathtub soaks. Dressings to be removed by your doctor in the office. Drink 64 oz of fluid daily. Start protein shakes on . Notify bariatric center for temp over 101.0, increased pain, drainage from incisions. No straws or carbonated beverages. Liquid diet only. Sugar content should be less than 6 g to avoid dumping syndrome. Take MOM for constipation. Discharge Disposition: HOME SELF-CARE
== END 2018-05-15 15:15 | disposition home or self-care (01) | DRG 619 ==
LOC: 2ORMAIN 05:49 → 4SSUR 09:58
PROVIDERS: ADMIT Surgery Plastic and Reconstructive Surgery; ATTEND Surgery Plastic and Reconstructive Surgery
PROC: 8E0W4CZ Robotic Assisted Procedure of Trunk Region, Percutaneous Endoscopic Approach (ICD-10-PCS; 2018-05-14)
PROC: 0DJ08ZZ Inspection of Upper Intestinal Tract, Via Natural or Artificial Opening Endoscopic (ICD-10-PCS; 2018-05-14)
PROC: 0DB64Z3 Excision of Stomach, Percutaneous Endoscopic Approach, Vertical (ICD-10-PCS; principal; 2018-05-14 07:30)
DX: E66.01 Morbid (severe) obesity due to excess calories (principal); N17.0 Acute kidney failure with tubular necrosis; Z68.43 Body mass index [BMI] 50.0-59.9, adult; E87.5 Hyperkalemia; R16.0 Hepatomegaly, not elsewhere classified; I11.9 Hypertensive heart disease without heart failure; N14.1 Nephropathy induced by other drugs, medicaments and biological substances; T46.4X5A Adverse effect of angiotensin-converting-enzyme inhibitors, initial encounter; T50.2X5A Adverse effect of carbonic-anhydrase inhibitors, benzothiadiazides and other diuretics, initial encounter; T38.3X5A Adverse effect of insulin and oral hypoglycemic [antidiabetic] drugs, initial encounter; E11.9 Type 2 diabetes mellitus without complications; K21.9 Gastro-esophageal reflux disease without esophagitis; K44.9 Diaphragmatic hernia without obstruction or gangrene; K29.50 Unspecified chronic gastritis without bleeding; E78.5 Hyperlipidemia, unspecified; J30.2 Other seasonal allergic rhinitis; M17.0 Bilateral primary osteoarthritis of knee; Z90.49 Acquired absence of other specified parts of digestive tract; Z79.84 Long term (current) use of oral hypoglycemic drugs; Z79.82 Long term (current) use of aspirin; Z79.899 Other long term (current) drug therapy; Z87.11 Personal history of peptic ulcer disease; Z71.3 Dietary counseling and surveillance; Z88.2 Allergy status to sulfonamides; Z83.49 Family history of other endocrine, nutritional and metabolic diseases
CPT/HCPCS: 74210; 80051; 80053; 82310; 82565; 83735; 84100; 84520; 85025; 86850; 86900; 86901; 88307; 94640

== ENCOUNTER → 2018-05-18 | Outpatient (CLI) | payer BC ==
[2018-05-18 10:32] VITALS: BP 148/86; PULSE 66; TEMP 97.6; BMI 51.9
[2018-05-18 10:52] LABS: Glucose,Whole Blood 104 mg/dL (75-99)
--- NOTE | 2018-05-18 11:29 | P.PN ---
Subjective Progress Note Date: 05/18/18 DATE OF SERVICE: 05/18/2018 CHIEF COMPLAINT: Morbid obesity HISTORY OF PRESENT ILLNESS: Whitney Shelby is a 52-year-old female status post sleeve gastrectomy, 05/14/2018. She is POD 4. She is tolerating liquids. No reports of dysphagia. She is passing flatus. Pain is controlled. At height of 5 feet 5 inches, her ideal body weight is 149 pounds. Her highest weight was 350 pounds. Today she comes in 311 pounds from 332 pounds, 1 month ago. She has lost 21 pounds in 2 months. Her body mass index highest was 58.4. Today her BMI is 51.9. Lifetime weight loss of 39 pounds. Percent excess weight loss is 19%. PHYSICAL EXAM: VITAL SIGNS: Height 5 foot 5 inches, weight 311 pounds. BMI 51.9 Vital Signs Temp 97.6 F 05/18/18 10:28 Pulse 66 05/18/18 10:28 Resp BP 148/86 05/18/18 10:28 Pulse Ox GENERAL: Well-developed in no acute distress. HEENT: No scleral icterus. Extraocular movements grossly intact. Hears conversational speech. No nasal drainage. NECK: Supple without lymphadenopathy. CHEST: Nonlabored respirations with equal bilateral excursions. CARDIOVASCULAR: Regular rate and regular rhythm. Distal 2+ pulses. ABDOMEN: Obese, soft. Dressing discontinued. No cellulitis or infection. MUSCULOSKELETAL: No clubbing, cyanosis. Gross strength 5/5 distal lower extremities. NEURO: No focal or lateralizing signs. Cranial nerves 2 through 12 grossly within normal limits. PSYCH: Appropriate affect. Alert and oriented to person, place and time. SKIN: Good skin turgor. Well perfused. ASSESSMENT: 1. Morbid obesity due to excess calories 2. Body mass index of 58.4, initial to 51.9 3. Hyperlipidemia 4. Diabetes type 2, ida-sgqgvju-ciyszjnwj 5. Hypertensive heart disease 6. Seasonal ALLERGIES 7. Osteoarthritis bilateral knees 8. Hiatal hernia 9. Gastric ulcer 10. Chronic gastritis 11. Status post sleeve gastrectomy PLAN: 1. Follow-up next week nurse visit. Objective - Vital Signs Vital signs: Vital Signs Temp 97.6 F 05/18/18 10:28 Pulse 66 05/18/18 10:28 Resp BP 148/86 05/18/18 10:28 Pulse Ox Intake & Output 05/17/18 05/18/18 05/18/18 18:59 06:59 18:59 Weight 141.521 kg - Labs Labs: Abnormal Lab Results - Last 24 Hours (Table) 05/18/18 Range/Units 10:49 POC Glucose (mg/dL) 104 H (75-99) mg/dL
== END | disposition home or self-care (01) ==
LOC: BARWHC3 09:44
PROVIDERS: ATTEND Surgery Plastic and Reconstructive Surgery
DX: E66.01 Morbid (severe) obesity due to excess calories (principal); E78.5 Hyperlipidemia, unspecified; E11.9 Type 2 diabetes mellitus without complications; I11.9 Hypertensive heart disease without heart failure; M17.0 Bilateral primary osteoarthritis of knee; K25.9 Gastric ulcer, unspecified as acute or chronic, without hemorrhage or perforation; K29.50 Unspecified chronic gastritis without bleeding; K44.9 Diaphragmatic hernia without obstruction or gangrene; J30.2 Other seasonal allergic rhinitis; Z98.84 Bariatric surgery status; Z68.43 Body mass index [BMI] 50.0-59.9, adult
CPT/HCPCS: 99211

== ENCOUNTER → 2018-06-01 | Outpatient (CLI) | payer BC ==
[2018-06-01 11:25] VITALS: BP 131/88; PULSE 71; RESP 16; TEMP 97.6; BMI 50.1
--- NOTE | 2018-06-01 16:59 | P.PN ---
Progress Note - Text Progress Note Date: 06/01/18 To Whom It May Concern: Whitney Shelby is under my general surgical care. She will need 4 weeks of no lifting over 5 pounds after surgery through May 11, 2018. In the interim she may return to work on June 04, 2018 with the above restrictions. Feel free to contact us if questions. Sincerely, Dr. Mayra Leyva
--- NOTE | 2018-06-01 18:25 | P.PN ---
Subjective Progress Note Date: 06/01/18 DATE OF SERVICE: 06/01/2018 CHIEF COMPLAINT: Morbid obesity HISTORY OF PRESENT ILLNESS: Whitney Shelby is a 52-year-old female status post sleeve gastrectomy, 05/14/2018. She is 3 weeks out. She is clinically doing well. No gastroesophageal reflux disease. No abdominal pain. Her weight loss is appropriate. She is tolerating liquids. She's had a bowel movement. No blood in stools. At height of 5 feet 5 inches, her ideal body weight is 149 pounds. Her highest weight was 350 pounds. Today she comes in 300 pounds from 311 pounds, 3 weeks ago. She has lost 11 pounds in 3 weeks ago. Her body mass index highest was 58.4. Today her BMI is 50.1. Lifetime weight loss of 50 pounds. Percent excess weight loss is 25%. PHYSICAL EXAM: VITAL SIGNS: Height 5 foot 5 inches, weight 300 pounds. BMI 50.1 Vital Signs Temp 97.6 F 06/01/18 11:23 Pulse 71 06/01/18 11:23 Resp 16 06/01/18 11:23 BP 131/88 06/01/18 11:23 Pulse Ox GENERAL: Well-developed in no acute distress. HEENT: No scleral icterus. Extraocular movements grossly intact. Hears conversational speech. No nasal drainage. NECK: Supple without lymphadenopathy. CHEST: Nonlabored respirations with equal bilateral excursions. CARDIOVASCULAR: Regular rate and regular rhythm. Distal 2+ pulses. ABDOMEN: Obese, soft. Dressing discontinued. No cellulitis or infection. MUSCULOSKELETAL: No clubbing, cyanosis. Gross strength 5/5 distal lower extremities. NEURO: No focal or lateralizing signs. Cranial nerves 2 through 12 grossly within normal limits. PSYCH: Appropriate affect. Alert and oriented to person, place and time. SKIN: Good skin turgor. Well perfused. ASSESSMENT: 1. Morbid obesity due to excess calories 2. Body mass index of 58.4, initial to 51.9 3. Hyperlipidemia 4. Diabetes type 2, [id number]-wtosaadhe 5. Hypertensive heart disease 6. Seasonal ALLERGIES 7. Osteoarthritis bilateral knees 8. Hiatal hernia 9. Gastric ulcer 10. Chronic gastritis 11. Status post sleeve gastrectomy PLAN: 1. Follow-up in 1 month with bariatric laps. 2. May return to work June 04 with restrictions. Objective - Vital Signs Vital signs: Vital Signs Temp 97.6 F 06/01/18 11:23 Pulse 71 06/01/18 11:23 Resp 16 06/01/18 11:23 BP 131/88 06/01/18 11:23 Pulse Ox Intake & Output 05/31/18 06/01/18 06/01/18 18:59 06:59 18:59 Weight 136.531 kg
--- NOTE | 2018-06-07 13:09 | P.PN ---
Progress Note - Text Progress Note Date: 06/07/18 To Whom It May Concern: Whitney Shelby is under my general surgical care. She will be off restrictions for return to work on June 11, 2018. Feel free to contact us if questions. Sincerely, Dr. Mayra Leyva
== END ==
LOC: BARWHC3 09:46
PROVIDERS: ATTEND Surgery Plastic and Reconstructive Surgery
DX: E66.01 Morbid (severe) obesity due to excess calories (principal); E78.5 Hyperlipidemia, unspecified; E11.9 Type 2 diabetes mellitus without complications; I11.9 Hypertensive heart disease without heart failure; M17.0 Bilateral primary osteoarthritis of knee; K44.9 Diaphragmatic hernia without obstruction or gangrene; K25.9 Gastric ulcer, unspecified as acute or chronic, without hemorrhage or perforation; K29.50 Unspecified chronic gastritis without bleeding; J30.2 Other seasonal allergic rhinitis; Z98.84 Bariatric surgery status; Z68.43 Body mass index [BMI] 50.0-59.9, adult
CPT/HCPCS: 99211

== ENCOUNTER → 2018-06-15 | Outpatient (CLI) | payer BC ==
[2018-06-15 14:57] LABS: HCT 40.9 % (34.0-46.0); HGB 13.5 gm/dL (11.4-16.0); MCH 29.2 pg (25.0-35.0); MCV 88.6 fL (80.0-100.0); Mean Platelet Volume 8.3; Platelet Count 268 k/uL (150-450); RBC 4.62 m/uL (3.80-5.40); RDW 14.7 % (11.5-15.5); WBC 8.1 k/uL (3.8-10.6)
[2018-06-15 15:02] LABS: Partial Thromboplastin Time 23.4 sec (22.0-30.0); Prothrombin Time 10.6 sec (9.0-12.0)
[2018-06-15 20:15] LABS: Iron Saturation 15.28 (12.00-45.00)
[2018-06-15 20:17] LABS: Albumin 4.5 g/dL (3.80-4.90); Albumin/Globulin Ratio 2.65 (1.60-3.17); Anion Gap 15.1 mmol/L (4.00-12.00); Calcium 9.8 mg/dL (8.7-10.3); Carbon Dioxide 22.9 mmol/L (21.6-31.8); Globulin 1.7 g/dL (1.6-3.3); Magnesium 1.3 mg/dL (1.5-2.4); Phosphorus 3.1 mg/dL (2.4-5.1); Potassium 3.5 mmol/L (3.5-5.5); Total Bilirubin 0.5 mg/dL (0.3-1.2); Total Protein 6.2 g/dL (6.2-8.2)
[2018-06-15 21:01] LABS: Folate, Serum 15.7 ng/mL
[2018-06-15 21:20] LABS: Parathyroid Hormone Intact 46.4 pg/mL (14.0-72.0)
[2018-06-16 00:08] LABS: Hemoglobin A1C 5.6 % (4.0-6.0)
[2018-06-18 15:28] LABS: Zinc, Serum 80 ug/dL (60-130)
[2018-06-19 07:29] LABS: Vit B1(Thiamine) 36 ug/L (38-122)
== END | disposition home or self-care (01) ==
LOC: LABWHC1 12:44
PROVIDERS: ATTEND Surgery Plastic and Reconstructive Surgery
DX: E66.01 Morbid (severe) obesity due to excess calories (principal); E21.1 Secondary hyperparathyroidism, not elsewhere classified; E89.1 Postprocedural hypoinsulinemia; D50.9 Iron deficiency anemia, unspecified; K90.9 Intestinal malabsorption, unspecified; E55.9 Vitamin D deficiency, unspecified; K74.1 Hepatic sclerosis; N19 Unspecified kidney failure; K50.90 Crohn's disease, unspecified, without complications
CPT/HCPCS: 36415; 80053; 80061; 82525; 82607; 82728; 82746; 83036; 83540; 83550; 83735; 83970; 84100; 84134; 84255; 84425; 84443; 84590; 84630; 85027; 85610; 85730

== ENCOUNTER → 2018-08-15 | Outpatient (CLI) | payer BC ==
[2018-08-15 14:31] VITALS: BP 157/79; PULSE 62; RESP 16; TEMP 98.7; BMI 46.6
--- NOTE | 2018-08-15 15:15 | P.PN ---
Subjective Progress Note Date: 08/15/18 HPI: No GERD. No dysphagia. She has lost 32 pounds in 3 months. No abdominal pain. No moderate burping. She reports trouble with her knees. She sees an orthopedic surgeon. ABDOMEN: ASSESSMENT: 1. Morbid obesity PLAN: 1. Bariatric labs 2. Encourage exercise and physical 3. Get labs Objective - Vital Signs Vital signs: Vital Signs Temp 98.7 F 08/15/18 14:28 Pulse 62 08/15/18 14:28 Resp 16 08/15/18 14:28 BP 157/79 08/15/18 14:28 Pulse Ox Intake & Output 08/14/18 08/15/18 08/15/18 18:59 06:59 18:59 Weight 127.119 kg
[2018-08-15 16:57] LABS: HCT 41.9 % (34.0-46.0); HGB 13.4 gm/dL (11.4-16.0); MCHC 31.9 g/dL (31.0-37.0); MCV 90.9 fL (80.0-100.0); Mean Platelet Volume 8.2; Platelet Count 253 k/uL (150-450); RBC 4.61 m/uL (3.80-5.40); RDW 13.9 % (11.5-15.5); WBC 7.9 k/uL (3.8-10.6)
[2018-08-15 17:07] LABS: INR 0.9 (<1.2); Partial Thromboplastin Time 24.2 sec (22.0-30.0); Prothrombin Time 10.2 sec (9.0-12.0)
[2018-08-15 23:18] LABS: African American GFR (CKD) 73.4 (60.0-200.0); Albumin 4.6 g/dL (3.80-4.90); Albumin/Globulin Ratio 2.19 (1.60-3.17); Anion Gap 10.4 mmol/L (4.00-12.00); Calcium 10.1 mg/dL (8.7-10.3); Carbon Dioxide 25.6 mmol/L (21.6-31.8); Globulin 2.1 g/dL (1.6-3.3); Magnesium 1.8 mg/dL (1.5-2.4); Phosphorus 3.1 mg/dL (2.4-5.1); Potassium 4.1 mmol/L (3.5-5.5); Total Bilirubin 0.2 mg/dL (0.3-1.2); Total Protein 6.7 g/dL (6.2-8.2)
[2018-08-15 23:20] LABS: Iron Saturation 12.3 (12.00-45.00)
[2018-08-15 23:28] LABS: Vitamin D 25 Hydroxy 50.2 ng/mL (30.0-100.0)
[2018-08-15 23:39] LABS: Folate, Serum 15.8 ng/mL
[2018-08-15 23:42] LABS: Hemoglobin A1C 5.5 % (4.0-6.0)
[2018-08-16 00:39] LABS: Parathyroid Hormone Intact 43.9 pg/mL (14.0-72.0)
[2018-08-16 12:44] LABS: Zinc, Serum 73 ug/dL (60-130)
[2018-08-16 15:06] LABS: Vit B1(Thiamine) 92 ug/L (38-122)
[2018-08-17 07:23] LABS: Vitamin A 50 ug/dL (38-106)
== END | disposition home or self-care (01) ==
LOC: BARWHC3 13:38
PROVIDERS: ATTEND Surgery Plastic and Reconstructive Surgery
DX: E66.01 Morbid (severe) obesity due to excess calories (principal); E21.1 Secondary hyperparathyroidism, not elsewhere classified; E89.1 Postprocedural hypoinsulinemia; D50.9 Iron deficiency anemia, unspecified; K90.9 Intestinal malabsorption, unspecified; E55.9 Vitamin D deficiency, unspecified; K76.9 Liver disease, unspecified; N19 Unspecified kidney failure; K50.90 Crohn's disease, unspecified, without complications; Z71.3 Dietary counseling and surveillance; Z68.42 Body mass index [BMI] 45.0-49.9, adult
CPT/HCPCS: 80053; 80061; 82306; 82525; 82607; 82728; 82746; 83036; 83540; 83550; 83735; 83970; 84100; 84134; 84255; 84425; 84443; 84590; 84630; 85027; 85610; 85730; 97803; 99211

== ENCOUNTER 2018-10-10 07:08 | Day surgery (SDC) | payer BC ==
[2018-10-03 12:41] VITALS: BMI 44.4
[~2018-10-10 07:08] MED LIST changes: -DEXAMETHASONE SOD PHOSPHATE 10 MG/ML 1 ML VIAL IV ONE; +LACTATED RINGERS 1,000 ML IV SCH; -MORPHINE SULFATE 4 MG/ML SYRINGE IV PRN; -ONDANSETRON 4 MG/2 ML VIAL IVP ONE; -ceFAZolin 3 GM in SODIUM CHLORIDE 0.9% 100 ML IVPB ONE
--- NOTE | 2018-10-10 07:33 | P.GSHP ---
History of Present Illness H&P Date: 10/10/18 CHIEF COMPLAINT: Colon screen HISTORY OF PRESENT ILLNESS: The patient is a 53-year-old female who presents for colon screen. Lower endoscopy was offered for further evaluation and management. PAST MEDICAL HISTORY: Please see list. PAST SURGICAL HISTORY: Please see list. MEDICATIONS: Please see list. ALLERGIES: Please see list. SOCIAL HISTORY: No illicit drug use FAMILY HISTORY: No reports of Crohn disease or ulcerative colitis. REVIEW OF ORGAN SYSTEMS: CONSTITUTIONAL: No reports of fevers or chills. PHYSICAL EXAM: VITAL SIGNS: Stable GENERAL: Well-developed pleasant in no acute distress. HEENT: No scleral icterus. Extraocular movements grossly intact. Moist buccal mucosa. NECK: Supple without lymphadenopathy. CHEST: Unlabored respirations. Equal bilateral excursions. CARDIOVASCULAR: Regular rate and rhythm. Distal 2+ pulses. ABDOMEN: Soft, nontender, nondistended. MUSCULOSKELETAL: No clubbing, cyanosis, or edema. ASSESSMENT: 1. Colon screen. PLAN: 1. Recommend proceeding with a lower endoscopy Past Medical History Past Medical History: Diabetes Mellitus, GERD/Reflux, Hyperlipidemia, Hypertension, Osteoarthritis (OA) Additional Past Medical History / Comment(s): EGD SHOWED GASTRIC ULCER, HIATAL HERNIA. PAIN IN KNEES. currently off htn, cholesterol and diabetes meds after bariatric sx in April 2018 History of Any Multi-Drug Resistant Organisms: None Reported Past Surgical History: Bariatric Surgery, Cholecystectomy, Orthopedic Surgery, Tonsillectomy Additional Past Surgical History / Comment(s): bilateral knee arthroscopic surgery. EGD sleeve gastrectomy 05-14-18 Past Anesthesia/Blood Transfusion Reactions: No Reported Reaction Smoking Status: Never smoker - Past Family History Mother Family Medical History: Cancer Additional Family Medical History / Comment(s): multiple myeloma,breast cancer Medications and Allergies Home Medications Medication Instructions Recorded Confirmed Type Levocetirizine Dihydrochloride 5 mg PO HS 02/01/18 10/03/18 History [Xyzal] Metoprolol Succinate (ER) [Toprol 100 mg PO DAILY 02/01/18 10/03/18 History XL] Allergies Allergy/AdvReac Type Severity Reaction Status Date / Time Sulfa (Sulfonamide Allergy Rash/Hives Verified 10/03/18 12:26 Antibiotics)
[2018-10-10 07:40] VITALS: TEMP 97.8
[2018-10-10] MEDS ORDERED: LIDOCAINE 1% 20 ML VIAL (10MG/ML) FOR IV START INTRADERMA ONE (07:41)
[2018-10-10] MEDS ORDERED: LACTATED RINGERS 1,000 ML IV ONE (07:41)
[2018-10-10 07:57] LABS: Glucose,Whole Blood 103 mg/dL (75-99)
[2018-10-10] MEDS ORDERED: LIDOCAINE 1% INJ 10MG/ML (20 ML MDV) ONE (08:26)
[2018-10-10] MEDS ORDERED: PROPOFOL 10 MG/ML 20 ML VIAL IV ONE (08:26)
--- NOTE | 2018-10-10 08:50 | P.PCN ---
Date of Procedure: 10/10/18 Description of Procedure: PREOPERATIVE DIAGNOSIS: Colonoscopy screening, first POSTOPERATIVE DIAGNOSIS: Colonoscopy screening, first Multiple tubular adenomas throughout the colon. OPERATION: Colonoscopy to the ileocecal valve and appendiceal orifice. Colonoscopy with multiple hot snare polypectomies Colonoscopy with multiple cold forceps biopsies. SURGEON: Mayra Leyva MD. ANESTHESIA: MAC. INDICATIONS: The patient is a 53-year-old female who presents for colonoscopy screening. She presents for first colonoscopy screening. Benefits and risks were described and informed consent was obtained. DESCRIPTION OF PROCEDURE: The patient had undergone Suprep. She had been brought into the operating room and laid in the left lateral decubitus position. After adequate intravenous sedation, the rectum was examined with 2% lidocaine jelly. No external hemorrhoids were encountered. The rectal tone was within normal limits. No lesions were palpated in the rectal vault. An Olympus colonoscope was advanced until the ileocecal valve and appendiceal orifice were clearly viewed. The prep was fair with visualization of the mucosal folds. The scope was removed with visualization of each mucosal fold. No scattered diverticulosis was encountered. Multiple colonic polyps were found and cold forcep biopsy or snare polypectomy. No evidence of focal colitis was found. Retroflexion of the scope demonstrated grade 1 internal hemorrhoids without active bleeding or inflammation. The colon was desufflated. The patient had tolerated the procedure well. Withdrawal time was over 6 minutes. FINDINGS: Aronchick preparation quality scale 2 (1-5) Internal hemorrhoids, grade 1 No external hemorrhoids No sigmoid diverticulosis. No arteriovenous malformations. Removal of 3 polyps: - Snare polypectomy 30 cm from the anal verge, 9 mm tubulovillous adenoma polyp. - Cold forceps biopsy at 40 cm from the anal verge, 4 mm polyp. - Cold forceps biopsy at 50 cm from the anal verge, 3 mm polyp. No focal colitis. RECOMMENDATIONS: Given severity of tubular adenomas, recommend repeat colonoscopy 3 years, 2021. Plan - Discharge Summary Discharge Rx Participant: Yes New Discharge Prescriptions: No Action Levocetirizine Dihydrochloride [Xyzal] 5 mg PO HS Metoprolol Succinate (ER) [Toprol XL] 100 mg PO DAILY Discharge Medication List Levocetirizine Dihydrochloride [Xyzal] 5 mg PO HS 02/01/18 [History] Metoprolol Succinate (ER) [Toprol XL] 100 mg PO DAILY 02/01/18 [History] Follow up Appointment(s)/Referral(s): Mayra Leyva MD [STAFF PHYSICIAN] - As Needed Patient Instructions/Handouts: Colorectal Polyps (DC) Activity/Diet/Wound Care/Special Instructions: Repeat colonoscopy 3 years, 2021 Discharge Disposition: HOME SELF-CARE
[2018-10-10 08:53] VITALS: RESP 16
[2018-10-10 09:19] VITALS: BP 118/76; PULSE 53
[2018-10-10 09:25] LABS: Glucose,Whole Blood 99 mg/dL (75-99)
== END 2018-10-10 09:34 | disposition home or self-care (01) ==
LOC: ORWHC2ENDO 07:08
PROVIDERS: ATTEND Surgery Plastic and Reconstructive Surgery
DX: Z12.11 Encounter for screening for malignant neoplasm of colon (principal); D12.9 Benign neoplasm of anus and anal canal; E11.9 Type 2 diabetes mellitus without complications; E78.5 Hyperlipidemia, unspecified; I10 Essential (primary) hypertension; K21.9 Gastro-esophageal reflux disease without esophagitis; K44.9 Diaphragmatic hernia without obstruction or gangrene; M19.90 Unspecified osteoarthritis, unspecified site; Z90.49 Acquired absence of other specified parts of digestive tract; Z79.899 Other long term (current) drug therapy; Z88.2 Allergy status to sulfonamides; Z98.84 Bariatric surgery status; Z80.7 Family history of other malignant neoplasms of lymphoid, hematopoietic and related tissues; Z80.3 Family history of malignant neoplasm of breast
CPT/HCPCS: 88305; 45380; 45385; J2001; J2704

== ENCOUNTER → 2018-11-14 | Outpatient (CLI) | payer BC ==
[2018-11-14 14:27] VITALS: BP 156/73; PULSE 58; RESP 16; TEMP 98.1; BMI 43.9
--- NOTE | 2018-11-14 15:17 | P.PN ---
Subjective Progress Note Date: 11/14/18 DATE OF SERVICE: 11/14/2018 CHIEF COMPLAINT: Morbid obesity HISTORY OF PRESENT ILLNESS: Whitney Shelby is a 53-year-old female status post sleeve gastrectomy, 05/14/2018. No heartburn. No moderate hip or knee pain. Her joint pain of the hips is unchanged but knee pain has improved. No food stuck sensation. She no longer requires CPAP machine. She is 80 pounds down. She reports requiring new clothes. She is 6 months out. Her protein intake daily is over 80 g. No reports of constipation. At height of 5 feet 5 inches, her ideal body weight is 149 pounds. Her highest weight was 350 pounds. Today she comes in 263 pounds from 280 pounds, 3 months ago. She has lost 16 pounds in 3 months. Her body mass index highest was 58.4. Today her BMI is 43.9. Lifetime weight loss of 87 pounds. Percent lifetime excess weight loss is 43%. PHYSICAL EXAM: VITAL SIGNS: Height 5 foot 5 inches, weight 263 pounds. BMI 43.9 Vital Signs Temp 98.1 F 11/14/18 14:24 Pulse 58 L 11/14/18 14:24 Resp 16 11/14/18 14:24 BP 156/73 11/14/18 14:24 Pulse Ox GENERAL: Well-developed in no acute distress. HEENT: No scleral icterus. Extraocular movements grossly intact. Hears conversational speech. No nasal drainage. NECK: Supple without lymphadenopathy. CHEST: Nonlabored respirations with equal bilateral excursions. CARDIOVASCULAR: Regular rate and regular rhythm. Distal 2+ pulses. ABDOMEN: Obese, soft. Nontender. Nondistended No hernia. MUSCULOSKELETAL: No clubbing, cyanosis. Gross strength 5/5 distal lower extremities. NEURO: No focal or lateralizing signs. Cranial nerves 2 through 12 grossly within normal limits. PSYCH: Appropriate affect. Alert and oriented to person, place and time. SKIN: Good skin turgor. Well perfused. Laboratory Last Values WBC 7.9 k/uL (3.8-10.6) 08/15/18 16:02 RBC 4.61 m/uL (3.80-5.40) 08/15/18 16:02 Hgb 13.4 gm/dL (11.4-16.0) 08/15/18 16:02 Hct 41.9 % (34.0-46.0) 08/15/18 16:02 MCV 90.9 fL (80.0-100.0) 08/15/18 16:02 MCH 29.0 pg (25.0-35.0) 08/15/18 16:02 MCHC 31.9 g/dL (31.0-37.0) 08/15/18 16:02 RDW 13.9 % (11.5-15.5) 08/15/18 16:02 Plt Count 253 k/uL (150-450) 08/15/18 16:02 PT 10.2 sec (9.0-12.0) 08/15/18 16:02 INR 0.9 (<1.2) 08/15/18 16:02 APTT 24.2 sec (22.0-30.0) 08/15/18 16:02 Sodium 142 mmol/L (135-145) 08/15/18 16:02 Potassium 4.1 mmol/L (3.5-5.5) 08/15/18 16:02 Chloride 106 mmol/L (96-109) 08/15/18 16:02 Carbon Dioxide 25.6 mmol/L (21.6-31.8) 08/15/18 16:02 Anion Gap 10.40 mmol/L (4.00-12.00) 08/15/18 16:02 BUN 15.0 mg/dL (9.0-27.0) 08/15/18 16:02 Creatinine 1.0 mg/dL (0.6-1.5) 08/15/18 16:02 Est GFR (CKD-EPI)AfAm 73.4 (60.0-200.0) 08/15/18 16:02 Est GFR (CKD-EPI)NonAf 63.4 (60.0-200.0) 08/15/18 16:02 BUN/Creatinine Ratio 15.00 Ratio (12.00-20.00) 08/15/18 16:02 Glucose 97 mg/dL (70-110) 08/15/18 16:[address] Glu mg/dL 111 08/15/18 16:02 Hemoglobin A1c 5.5 % (4.0-6.0) 08/15/18 16:02 Calcium 10.1 mg/dL (8.7-10.3) 08/15/18 16:02 Phosphorus 3.1 mg/dL (2.4-5.1) 08/15/18 16:02 Magnesium 1.8 mg/dL (1.5-2.4) 08/15/18 16:02 Iron 38 ug/dL (50-170) L 08/15/18 16:02 TIBC 309 ug/dL (228-460) 08/15/18 16:02 Iron Saturation 12.30 (12.00-45.00) 08/15/18 16:02 Ferritin 45.8 ng/mL (10.0-291.0) 08/15/18 16:02 Total Bilirubin 0.2 mg/dL (0.3-1.2) L 08/15/18 16:02 AST 22 U/L (13-35) 08/15/18 16:02 ALT 10 U/L (8-44) 08/15/18 16:02 Alkaline Phosphatase 101 U/L (41-126) 08/15/18 16:02 Total Protein 6.7 g/dL (6.2-8.2) 08/15/18 16:02 Albumin 4.60 g/dL (3.80-4.90) 08/15/18 16:02 Globulin 2.1 g/dL (1.6-3.3) 08/15/18 16:02 Albumin/Globulin Ratio 2.19 g/dL (1.60-3.17) 08/15/18 16:02 Prealbumin 20.0 mg/dL (18.0-42.0) 08/15/18 16:02 Triglycerides 240.0 mg/dL (0.0-149.0) H 08/15/18 16:02 Cholesterol 252 mg/dL (0-200) H 08/15/18 16:02 LDL Cholesterol, Calc 167.0 mg/dL (0.0-131.0) H 08/15/18 16:02 VLDL Cholesterol, Calc 48.00 mg/dL (5.00-40.00) H 08/15/18 16:02 HDL Cholesterol 37.0 mg/dL (40.0-60.0) L 08/15/18 16:02 Cholesterol/HDL Ratio 6.81 08/15/18 16:02 Vitamin A 50 ug/dL (38-106) 08/15/18 16:02 Vitamin B1 92 ug/L (38-122) 08/15/18 16:02 Vitamin B12 485.0 pg/mL (200.0-944.0) 08/15/18 16:02 Vitamin D 25-Hydroxy 50.2 ng/mL (30.0-100.0) 08/15/18 16:02 Folate 15.8 ng/mL 08/15/18 16:02 TSH 0.940 uIU/mL (0.350-5.500) 08/15/18 16:02 PTH Intact 43.9 pg/mL (14.0-72.0) 08/15/18 16:02 Copper 1467 ug/L (810-1990) 08/15/18 16:02 Selenium 150 mcg/L (63-160) 08/15/18 16:02 Zinc 73 ug/dL (60-130) 08/15/18 16:02 Iron is low HDL is low ASSESSMENT: 1. Morbid obesity due to excess calories 2. Body mass index of 58.4, initial to 46.6 3. Hyperlipidemia 4. Diabetes type 2, [id number] 5. Hypertensive heart disease 6. Seasonal ALLERGIES 7. Osteoarthritis bilateral knees 8. Hiatal hernia 9. Gastric ulcer 10. Chronic gastritis 11. Status post sleeve gastrectomy PLAN: 1. Recommend bariatric labs 2. Follow up in 3 months. Laboratory Last Values WBC 8.7 k/uL (3.8-10.6) 11/14/18 16:01 RBC 4.82 m/uL (3.80-5.40) 11/14/18 16:01 Hgb 13.9 gm/dL (11.4-16.0) 11/14/18 16:01 Hct 42.0 % (34.0-46.0) 11/14/18 16:01 MCV 87.1 fL (80.0-100.0) 11/14/18 16:01 MCH 28.9 pg (25.0-35.0) 11/14/18 16:01 MCHC 33.2 g/dL (31.0-37.0) 11/14/18 16:01 RDW 13.7 % (11.5-15.5) 11/14/18 16:01 Plt Count 230 k/uL (150-450) 11/14/18 16:01 PT 10.1 sec (9.0-12.0) 11/14/18 16:01 INR 0.9 (<1.2) 11/14/18 16:01 APTT 23.4 sec (22.0-30.0) 11/14/18 16:01 Sodium 142 mmol/L (135-145) 11/14/18 16:01 Potassium 4.0 mmol/L (3.5-5.5) 11/14/18 16:01 Chloride 106 mmol/L (96-109) 11/14/18 16:01 Carbon Dioxide 25.3 mmol/L (21.6-31.8) 11/14/18 16:01 Anion Gap 10.70 mmol/L (4.00-12.00) 11/14/18 16:01 BUN 20.0 mg/dL (9.0-27.0) 11/14/18 16:01 Creatinine 0.9 mg/dL (0.6-1.5) 11/14/18 16:01 Est GFR (CKD-EPI)AfAm 83.4 (60.0-200.0) 11/14/18 16:01 Est GFR (CKD-EPI)NonAf 72.0 (60.0-200.0) 11/14/18 16:01 BUN/Creatinine Ratio 22.22 Ratio (12.00-20.00) H 11/14/18 16:01 Glucose 92 mg/dL (70-110) 11/14/18 16:[address] Glu mg/dL 114 11/14/18 16:01 Hemoglobin A1c 5.6 % (4.0-6.0) 11/14/18 16:01 Calcium 9.8 mg/dL (8.7-10.3) 11/14/18 16:01 Phosphorus 3.9 mg/dL (2.4-5.1) 11/14/18 16:01 Magnesium 1.8 mg/dL (1.5-2.4) 11/14/18 16:01 Iron 36 ug/dL (50-170) L 11/14/18 16:01 TIBC 321 ug/dL (228-460) 11/14/18 16:01 Iron Saturation 11.21 (12.00-45.00) L 11/14/18 16:01 Ferritin 71.5 ng/mL (10.0-291.0) 11/14/18 16:01 Total Bilirubin 0.2 mg/dL (0.3-1.2) L 11/14/18 16:01 AST 21 U/L (13-35) 11/14/18 16:01 ALT 17 U/L (8-44) 11/14/18 16:01 Alkaline Phosphatase 98 U/L (41-126) 11/14/18 16:01 Total Protein 6.2 g/dL (6.2-8.2) 11/14/18 16:01 Albumin 4.60 g/dL (3.80-4.90) 11/14/18 16:01 Globulin 1.6 g/dL (1.6-3.3) 11/14/18 16:01 Albumin/Globulin Ratio 2.88 g/dL (1.60-3.17) 11/14/18 16:01 Prealbumin 23.0 mg/dL (18.0-42.0) 11/14/18 16:01 Triglycerides 227.0 mg/dL (0.0-149.0) H 11/14/18 16:01 Cholesterol 250 mg/dL (0-200) H 11/14/18 16:01 LDL Cholesterol, Calc 165.6 mg/dL (0.0-131.0) H 11/14/18 16:01 VLDL Cholesterol, Calc 45.40 mg/dL (5.00-40.00) H 11/14/18 16:01 HDL Cholesterol 39.0 mg/dL (40.0-60.0) L 11/14/18 16:01 Cholesterol/HDL Ratio 6.41 11/14/18 16:01 Vitamin A 62 ug/dL (38-106) 11/14/18 16:01 Vitamin B12 552.0 pg/mL (200.0-944.0) 11/14/18 16:01 Vitamin D 25-Hydroxy 71.7 ng/mL (30.0-100.0) 11/14/18 16:01 Folate 17.4 ng/mL 11/14/18 16:01 TSH 1.180 uIU/mL (0.350-5.500) 11/14/18 16:01 PTH Intact 46.4 pg/mL (14.0-72.0) 11/14/18 16:01 Copper 1389 ug/L (810-1990) 11/14/18 16:01 Selenium 141 mcg/L (63-160) 11/14/18 16:01 Zinc 60 ug/dL (60-130) 11/14/18 16:01 Iron is low HDL is low Cholesterol elevated Objective - Vital Signs Vital signs: Vital Signs Temp 98.1 F 11/14/18 14:24 Pulse 58 L 11/14/18 14:24 Resp 16 11/14/18 14:24 BP 156/73 11/14/18 14:24 Pulse Ox Intake & Output 11/13/18 11/14/18 11/14/18 18:59 06:59 18:59 Weight 119.748 kg - Labs CBC & Chem 7: 11/14/18 16:01 11/14/18 16:01
[2018-11-14 16:24] LABS: HGB 13.9 gm/dL (11.4-16.0); MCH 28.9 pg (25.0-35.0); MCHC 33.2 g/dL (31.0-37.0); MCV 87.1 fL (80.0-100.0); Mean Platelet Volume 7.2; Platelet Count 230 k/uL (150-450); RBC 4.82 m/uL (3.80-5.40); RDW 13.7 % (11.5-15.5); WBC 8.7 k/uL (3.8-10.6)
[2018-11-14 16:32] LABS: INR 0.9 (<1.2); Partial Thromboplastin Time 23.4 sec (22.0-30.0); Prothrombin Time 10.1 sec (9.0-12.0)
[2018-11-14 23:28] LABS: Iron Saturation 11.21 (12.00-45.00)
[2018-11-14 23:39] LABS: Ferritin 71.5 ng/mL (10.0-291.0); Vitamin D 25 Hydroxy 71.7 ng/mL (30.0-100.0)
[2018-11-14 23:40] LABS: African American GFR (CKD) 83.4 (60.0-200.0); Albumin 4.6 g/dL (3.80-4.90); Albumin/Globulin Ratio 2.88 (1.60-3.17); Anion Gap 10.7 mmol/L (4.00-12.00); BUN/Creat Ratio 22.22 Ratio (12.00-20.00); Calcium 9.8 mg/dL (8.7-10.3); Carbon Dioxide 25.3 mmol/L (21.6-31.8); Chol/HDL Ratio 6.41; Globulin 1.6 g/dL (1.6-3.3); LDL Cholesterol,Calculated 165.6 mg/dL (0.0-131.0); Magnesium 1.8 mg/dL (1.5-2.4); Phosphorus 3.9 mg/dL (2.4-5.1); Total Bilirubin 0.2 mg/dL (0.3-1.2); Total Protein 6.2 g/dL (6.2-8.2); VLDL Calculation 45.4 mg/dL (5.00-40.00)
[2018-11-14 23:42] LABS: Folate, Serum 17.4 ng/mL
[2018-11-15 01:51] LABS: Hemoglobin A1C 5.6 % (4.0-6.0)
[2018-11-15 11:25] LABS: Zinc, Serum 60 ug/dL (60-130)
[2018-11-16 06:49] LABS: Vitamin A 62 ug/dL (38-106)
[2018-11-17 21:10] LABS: Selenium 141 mcg/L (63-160)
[2018-11-19 15:04] LABS: Vit B1(Thiamine) 78 ug/L (38-122)
== END | disposition home or self-care (01) ==
LOC: BARWHC3 13:39
PROVIDERS: ATTEND Surgery Plastic and Reconstructive Surgery
DX: E66.01 Morbid (severe) obesity due to excess calories (principal); Z68.42 Body mass index [BMI] 45.0-49.9, adult; E78.5 Hyperlipidemia, unspecified; E11.9 Type 2 diabetes mellitus without complications; J30.2 Other seasonal allergic rhinitis; M17.0 Bilateral primary osteoarthritis of knee; K44.9 Diaphragmatic hernia without obstruction or gangrene; K25.9 Gastric ulcer, unspecified as acute or chronic, without hemorrhage or perforation; K29.50 Unspecified chronic gastritis without bleeding; Z48.815 Encounter for surgical aftercare following surgery on the digestive system; E21.1 Secondary hyperparathyroidism, not elsewhere classified; E89.1 Postprocedural hypoinsulinemia; D50.9 Iron deficiency anemia, unspecified; K90.9 Intestinal malabsorption, unspecified; E55.9 Vitamin D deficiency, unspecified; K74.1 Hepatic sclerosis; N19 Unspecified kidney failure; K50.90 Crohn's disease, unspecified, without complications
CPT/HCPCS: 80053; 80061; 82306; 82525; 82607; 82728; 82746; 83036; 83540; 83550; 83735; 83970; 84100; 84134; 84255; 84425; 84443; 84590; 84630; 85027; 85610; 85730; 97803; 99211

== ENCOUNTER → 2019-02-13 | Outpatient (CLI) | payer OTHER ==
[2019-02-13 14:36] VITALS: BP 139/74; PULSE 16; RESP 16; TEMP 97.8; BMI 42.3
--- NOTE | 2019-02-13 14:53 | P.PN ---
Subjective Progress Note Date: 02/13/19 She has lost 80 pounds in 9 months. NO abdominal pain. Less joint pain. She is planning on knee surgery. She is getting 90 g of protein daily. Her carbs. She has increased weight loss but now improved. She has history of low iron. Panniculitis is present. ABDOMEN: No hernia PLAN: 1. Labs 9 months 2. She is planning on knee replacment surgery. 3. Check for iron and cholesterol 4. Nystatin powder. Objective - Vital Signs Vital signs: Vital Signs Temp 97.8 F 02/13/19 14:33 Pulse 16 L 02/13/19 14:33 Resp 16 02/13/19 14:33 BP 139/74 02/13/19 14:33 Pulse Ox Intake & Output 02/12/19 02/13/19 02/13/19 18:59 06:59 18:59 Weight 115.212 kg
[2019-02-13 16:16] LABS: HCT 42.1 % (34.0-46.0); HGB 14.2 gm/dL (11.4-16.0); MCH 30.5 pg (25.0-35.0); MCHC 33.8 g/dL (31.0-37.0); MCV 90.1 fL (80.0-100.0); Mean Platelet Volume 8.4; Platelet Count 224 k/uL (150-450); RBC 4.67 m/uL (3.80-5.40); WBC 8.1 k/uL (3.8-10.6)
[2019-02-13 16:25] LABS: INR 0.9 (<1.2); Partial Thromboplastin Time 25.2 sec (22.0-30.0); Prothrombin Time 10.1 sec (9.0-12.0)
[2019-02-13 23:41] LABS: African American GFR (CKD) 83.4 (60.0-200.0); Albumin 4.7 g/dL (3.80-4.90); Albumin/Globulin Ratio 2.94 (1.60-3.17); Anion Gap 7.1 mmol/L (4.00-12.00); BUN/Creat Ratio 27.78 Ratio (12.00-20.00); Calcium 9.9 mg/dL (8.7-10.3); Carbon Dioxide 28.9 mmol/L (21.6-31.8); Chol/HDL Ratio 5.58; Globulin 1.6 g/dL (1.6-3.3); LDL Cholesterol,Calculated 149.4 mg/dL (0.0-131.0); Magnesium 1.9 mg/dL (1.5-2.4); Phosphorus 3.7 mg/dL (2.4-5.1); Potassium 3.9 mmol/L (3.5-5.5); Total Bilirubin 0.2 mg/dL (0.3-1.2); Total Protein 6.3 g/dL (6.2-8.2); VLDL Calculation 47.6 mg/dL (5.00-40.00)
[2019-02-13 23:51] LABS: Ferritin 221.4 ng/mL (10.0-291.0)
[2019-02-13 23:56] LABS: Folate, Serum 15.7 ng/mL
[2019-02-14 01:01] LABS: Hemoglobin A1C 5.5 % (4.0-6.0)
[2019-02-14 12:56] LABS: Zinc, Serum 65 ug/dL (60-130)
[2019-02-15 06:11] LABS: Vitamin A 75 ug/dL (38-106)
[2019-02-16 10:00] LABS: Vit B1(Thiamine) 114 ug/L (38-122)
== END ==
LOC: BARWHC3 13:43
PROVIDERS: ATTEND Surgery Plastic and Reconstructive Surgery
DX: M79.3 Panniculitis, unspecified (principal); E66.01 Morbid (severe) obesity due to excess calories; E21.1 Secondary hyperparathyroidism, not elsewhere classified; E89.1 Postprocedural hypoinsulinemia; D50.9 Iron deficiency anemia, unspecified; E44.0 Moderate protein-calorie malnutrition; E55.9 Vitamin D deficiency, unspecified; K74.1 Hepatic sclerosis; N19 Unspecified kidney failure; K50.90 Crohn's disease, unspecified, without complications; Z68.41 Body mass index [BMI] 40.0-44.9, adult
CPT/HCPCS: 80053; 80061; 82306; 82525; 82607; 82728; 82746; 83036; 83540; 83550; 83735; 83970; 84100; 84134; 84255; 84425; 84443; 84590; 84630; 85027; 85610; 85730; 99211

== ENCOUNTER → 2019-04-17 | Outpatient (CLI) | payer OTHER ==
[2019-04-17 15:10] VITALS: BP 145/75; PULSE 53; RESP 16; TEMP 97.7; BMI 41.2
--- NOTE | 2019-04-17 15:29 | P.PN ---
Subjective Progress Note Date: 04/17/19 She reports knee problems. She has lost 100+ pounds. No GERD. She is pending knee surgery. ASSESSMENT: 1. Morbid obesity PLAN: 1. She is pending labs 2. Omepazole recommended for GI protection. Objective - Vital Signs Vital signs: Vital Signs Temp 97.7 F 04/17/19 15:07 Pulse 53 L 04/17/19 15:07 Resp 16 04/17/19 15:07 BP 145/75 04/17/19 15:07 Pulse Ox Intake & Output 04/16/19 04/17/19 04/17/19 18:59 06:59 18:59 Weight 112.491 kg
[2019-04-17 16:35] LABS: HCT 42.4 % (34.0-46.0); HGB 14.2 gm/dL (11.4-16.0); MCH 30.2 pg (25.0-35.0); MCHC 33.4 g/dL (31.0-37.0); MCV 90.2 fL (80.0-100.0); Platelet Count 199 k/uL (150-450); RBC 4.71 m/uL (3.80-5.40); RDW 12.9 % (11.5-15.5); WBC 7.9 k/uL (3.8-10.6)
[2019-04-17 16:55] LABS: INR 0.9 (<1.2); Partial Thromboplastin Time 23.7 sec (22.0-30.0); Prothrombin Time 9.6 sec (9.0-12.0)
[2019-04-18 01:38] LABS: % Iron Saturation 15.82 (12.00-45.00); African American GFR (CKD) 83.4 (60.0-200.0); Albumin 4.8 g/dL (3.80-4.90); Albumin/Globulin Ratio 3.2 (1.60-3.17); Anion Gap 11.3 mmol/L (4.00-12.00); BUN/Creat Ratio 21.11 Ratio (12.00-20.00); Carbon Dioxide 25.7 mmol/L (21.6-31.8); Chol/HDL Ratio 5.95; Globulin 1.5 g/dL (1.6-3.3); LDL Cholesterol,Calculated 169.2 mg/dL (0.0-131.0); Phosphorus 3.4 mg/dL (2.4-5.1); Total Bilirubin 0.2 mg/dL (0.3-1.2); Total Protein 6.3 g/dL (6.2-8.2); VLDL Calculation 38.8 mg/dL (5.00-40.00)
[2019-04-18 01:43] LABS: Hemoglobin A1C 5.5 % (4.0-6.0)
[2019-04-18 01:48] LABS: Ferritin 203.5 ng/mL (10.0-291.0)
[2019-04-18 13:00] LABS: Zinc, Serum 72 ug/dL (60-130)
[2019-04-19 07:21] LABS: Vitamin A 59 ug/dL (38-106)
== END | disposition home or self-care (01) ==
LOC: BARWHC3 14:17
PROVIDERS: ATTEND Surgery Plastic and Reconstructive Surgery
DX: E66.01 Morbid (severe) obesity due to excess calories (principal); E21.1 Secondary hyperparathyroidism, not elsewhere classified; E89.1 Postprocedural hypoinsulinemia; D50.9 Iron deficiency anemia, unspecified; K90.9 Intestinal malabsorption, unspecified; E55.9 Vitamin D deficiency, unspecified; K76.9 Liver disease, unspecified; N19 Unspecified kidney failure; K50.90 Crohn's disease, unspecified, without complications; Z68.41 Body mass index [BMI] 40.0-44.9, adult
CPT/HCPCS: 80053; 80061; 82306; 82525; 82607; 82728; 82746; 83036; 83540; 83550; 83735; 83970; 84100; 84134; 84255; 84425; 84443; 84590; 84630; 85027; 85610; 85730; 99211

== ENCOUNTER → 2019-07-23 | Outpatient (CLI) | payer OTHER | END | disposition home or self-care (01) | LOC: LABPAT 11:33 | PROVIDERS: ATTEND Family Medicine | DX: Z01.812 Encounter for preprocedural laboratory examination (principal) | CPT/HCPCS: 87070 ==

== ENCOUNTER 2019-08-14 11:21 | Day surgery (SDC) | payer OTHER ==
[2019-08-12 14:33] VITALS: BMI 41.1
--- NOTE | 2019-08-14 10:08 | HP ---
HISTORY AND PHYSICAL CHIEF COMPLAINT: Right knee pain. 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 It has worsened recently. She notes her knees swells and gives out. She has tried medications and previous injections with partial temporary relief. PAST MEDICAL HISTORY: Significant for hypertension. Past surgical history is for hypertension and non- insulin-dependent diabetes. PAST SURGICAL HISTORY: Significant for bilateral knee arthroscopy, gallbladder removal, and gastric. CURRENT MEDICATIONS: Metformin, Toprol, Vytorin, lisinopril, and Prilosec. She has. ALLERGIES TO: SULFA. FAMILY HISTORY: Significant for heart disease and cancer. SOCIAL HISTORY: Negative for current tobacco or alcohol use. 16 POINT REVIEW OF SYSTEMS: Otherwise reviewed and is noncontributory. PHYSICAL EXAMINATION: On examination, the patient is approximately 5 foot 6, 244 pounds of endomorphic habitus. HEENT: Exam is nonfocal. NECK: Supple. She has painless passive motion of the right hip. Straight leg raise is negative, active motion right knee is -10 to 90 degrees of flexion. She is tender about the medial joint line. Collaterals are stable, Melisa is negative, Clare's is equivocal. She has genu varum alignment. Her distal neurovascular exam appears intact in the right lower extremity. Weightbearing notch, lateral and Merchant views of the right knee obtained in the office show severe medial and patellofemoral compartment narrowing. IMPRESSION: 1. Right knee severe medial and patellofemoral compartment osteoarthrosis. 2. Body mass index 39.38-obesity. RECOMMENDATIONS: I talked to the patient at length regarding her condition and treatment options. At this point, she is quite symptomatic despite conservative measures. In addition to recently losing 100 pounds after her gastric sleeve procedure. After thorough discussion, she opts to proceed with surgery. We will plan to proceed with right total knee arthroplasty. Risks and benefits were discussed at length in layman's terms. MMODL / IJN: [id number] /
[~2019-08-14 11:21] MED LIST changes: +ACETAMINOPHEN TAB 500 MG TAB PO ONE; +HYDROmorphone 0.5 MG/0.5 ML SYRINGE IVP PRN; -LACTATED RINGERS 1,000 ML IV SCH; +ROPIVACAINE 246.25 MG, EPINEPHrine 0.5 MG, KETOROLAC 30 MG, cloNIDine HCL/PF 80 MCG, WA... MISCELLANE ONE; +TRANEXAMIC ACID 1,000 MG in SODIUM CHLORIDE 0.9% 100 ML IVPB ONE; +fentaNYL (PF) 50 MCG/ML 2 ML AMP IV PRN
[2019-08-14] MEDS: MELOXICAM 7.5 MG TAB PO ONE ×2 (12:07→16:48)
[2019-08-14 12:12] LABS: Glucose,Whole Blood 98 mg/dL (75-99)
[2019-08-14] MEDS: LACTATED RINGERS 1,000 ML IV SCH ×2 (12:23→21:04)
[2019-08-14] MEDS ORDERED: MIDAZOLAM 2 MG/2 ML VIAL IV ONE (12:42)
[2019-08-14] MEDS ORDERED: fentaNYL (PF) 50 MCG/ML 2 ML AMP IV ONE (12:42)
[2019-08-14] MEDS ORDERED: ROPIVACAINE 246.25 MG, EPINEPHrine 0.5 MG, KETOROLAC 30 MG, cloNIDine HCL/PF 80 MCG, WA... MISCELLANE ONE ×5 (12:47)
[2019-08-14] MEDS ORDERED: MIDAZOLAM 2 MG/2 ML VIAL ONE (13:05)
[2019-08-14] MEDS ORDERED: PROPOFOL 10 MG/ML 20 ML VIAL IV ONE (13:05)
[2019-08-14] MEDS ORDERED: fentaNYL (PF) 50 MCG/ML 2 ML AMP ONE (13:05)
[2019-08-14] MEDS ORDERED: TRANEXAMIC ACID 1,000 MG/10 ML VIAL ONE (13:05)
[2019-08-14] MEDS ORDERED: SODIUM CHLORIDE 0.9% 100 ML BAG ONE (13:05)
--- NOTE | 2019-08-14 13:41 | P.ANPRN ---
Procedure Note - Anesthesia - Nerve Block Performed Right Adductor Canal Infusion Time Out Performed: Yes (1241) Date of Procedure: 08/14/19 Procedure Start Time: 12:42 Procedure Stop Time: 12:46 Location of Patient: PreOp Indication: Acute Post-Operative Pain, Requested by Surgeon Specifically requested for management of pain by : Ac Walker Sedation Type: Sedate with meaningful contact maintained Preparation: Sterile Prep Position: Supine Catheter Depth at Skin (cm): 8 Needle Types: Pajunk Needle Gauge: 20, 21 Ultrasound used to visualize needle placement: Yes Ultrasound used to observe medication spread: Yes Injectate: 0.5% Ropivacaine (see comment for volume) (20) Blood Aspirated: No Pain Paresthesia on Injection Noted: No Resistance on Injection: Normal Image Stored and Saved: Yes Events: Uneventful and Well Tolerated
[2019-08-14] MEDS ORDERED: LACTATED RINGERS 1,000 ML IV ONE (13:59)
[2019-08-14] MEDS ORDERED: HYDROmorphone 0.5 MG/0.5 ML SYRINGE IVP PRN (15:15)
[2019-08-14] MEDS ORDERED: HYDROmorphone 1 MG/ML 1 ML SYRINGE IVP PRN (15:15)
[2019-08-14] MEDS ORDERED: ONDANSETRON 4 MG/2 ML VIAL IVP PRN (15:15)
[2019-08-14] MEDS ORDERED: NALOXONE 0.4 MG/ML 1 ML VIAL IV PRN (15:15)
--- NOTE | 2019-08-14 15:25 | P.OP ---
Date of Procedure: 08/14/19 Preoperative Diagnosis: Right knee severe tricompartmental osteoarthrosis Postoperative Diagnosis: Same Procedure(s) Performed: Right total knee arthroplastycementedposterior stabilized Implants: Depuy Attune size 5 cemented femoral component, size 4 cemented tibial component, 16 mm articular surface, 32 mm cemented patellar component. This is a posterior stabilized implant. Anesthesia: regional, local, spinal Surgeon: Ac Walker Social Science Instructor #1: Jose Moody Estimated Blood Loss (ml): 50 Pathology: other (Bone fragments) Condition: stable Disposition: PACU Indications for Procedure: The patient is a 54-year-old female presents with progressive right knee pain secondary osteoarthrosis despite conservative measures. A discussion of the risks and benefits of operative intervention versus continued conservative measures was made with patient. She opted to proceed with surgery. Operative risks to include infection, neurovascular injury, development of blood clots, possible component loosening, possible component failure need for subsequent procedures was discussed. Informed consent was obtained. Operative Findings: As below Description of Procedure: The patient was brought to the operating room, and after induction of spinal anesthesia the right lower extremity was prepped and draped in a normal fashion. The tourniquet was inflated to 270 mm marker. A longitudinal incision extending 3 finger breaths above the superior pole of patella extending to the medial aspect the tibial tubercle was then made. The skin and subcutaneous tissues were divided sharply. Electrocautery was used for hemostasis. A medial parapatellar arthrotomy was performed. The medial soft tissues to include the superficial and deep portions of the medial collateral ligament were elevated subperiosteally. The patella was everted. A portion of the retropatellar fat pad was excised sharply. The anterior cruciate ligament was sacrificed. Blunt retractors were placed. A starting hole was made in the distal femur 1 cm anterior to the posterior cruciate ligament origin. An intramedullary femoral guide was then inserted planning on 5 valgus distal cut with 9 mm distal resection. The cutting block was pinned in place. The distal cut was then made. The posterior referencing sizing guide was utilized. I felt size 5 was most appropriate. 3 of external rotation was built into the system and verified off the trans-epicondylar axis and the posterior condyles. The cutting block was pinned in place. The anterior, posterior, and chamfer cuts then made. Bone fragments were removed. The intercondylar guide was placed and the notch cut was made with a sagittal saw. The bone block was removed in one fragment. The trial component was then placed. There is good anterior to posterior and medial to lateral fit. The distal peg holes were drilled. The trial component was removed. Attention was then paid towards preparing the proximal femur. An extra medullary guide was utilized in line with the tibial shaft and second metatarsal distally. I planned on 6 mm resection from the medial compartment. The cutting block was pinned in place. The proximal tibial cut was then made. The bone was removed in one fragment. The remnants of the medial and lateral menisci were excised at the capsular junction with electrocautery. The tibia sized most appropriately at size 4. The trial femoral and tibial components were placed along with a 16 mm articular surface. I was able to obtain full flexion and extension with internal and external rotation. After several flexion and extension cycles, the tibial rotation was marked with electrocautery line with the medial one third of the tibial tubercle. Attention was then paid towards preparing the patella. A patella reamer was utilized taking stem to 14 mm of bone stock. A good flush cut was made. The patella sized most appropriately 32 mm. The peg holes were drilled. The trial components placed. I had good patellofemoral tracking with no hands technique. The trial components were then removed. The tibia was prepared in the appropriate rotation with appropriate drill and keel punch. I planned on 50 mm of additional tibial stem. The posterior osteophytes were removed with a curved osteotome. The flexion and extension gaps were checked and felt to be symmetric at 16 mm. A trial components were then removed. The posterior soft tissues were injected with ropivacaine. The bony surfaces were prepared with pulsatile lavage and dried. The tibial component was then cemented place was fully seated. Excess cement was removed. The femoral component cemented place and was fully seated. Excess cement was removed. The trial 16 mm articular surface was placed and the knee was put in full extension. The patella component was cemented place. After the cement had sufficiently hardened, the knee was again taken through a range of motion. Again I was able to obtain full flexion and extension with varus and valgus stress. The trial 16 mm articular surface was removed and the final one inserted. This was fully seated. Care was taken to avoid any soft tissue interposition. Pulsatile lavage was again utilized. The medial parapatellar arthrotomy was closed with #2 Ethibond suture. The tourniquet was deflated with approximately 60 total tourniquet time. Final hemostasis was obtained with the cautery. There was minimal bleeding therefore a deep drain was not placed. The subcutaneous tissues were reapproximated with interrupted 2-0 Vicryl sutures. The skin was reapproximated with 3-0 subcuticular strata fix suture. Skin tape and adhesive was applied. A sterile dressing was applied. The patient was awoken from sedation and transferred to recovery room in good condition. Blood loss was estimated at 50 mL. No complications were incurred. Sponge and needle counts were correct at the end of the case. Baldemar TERRAZAS assisted during the major components of this case to include exposure, bone resection, implantation, and closure.
[2019-08-14 15:32] LABS: Glucose,Whole Blood 109 mg/dL (75-99)
[2019-08-14] MEDS ORDERED: ROPIVACAINE 0.2%-NS ON-Q PUMP 1,090 MG, EMPTY PAIN BALL 1 EACH MISCELLANE PRN (15:45)
--- NOTE | 2019-08-14 16:39 | XR ---
EXAMINATION TYPE: XR knee limited RT DATE OF EXAM: 08/14/2019 CLINICAL HISTORY: Right knee pain and arthritis status post total knee replacement. TECHNIQUE: Portable AP and crosstable lateral views of the right knee are obtained immediately posto peratively. COMPARISON: Outside right knee x-ray 2 days earlier. FINDINGS: Metallic hardware from total right knee arthroplasty is seen and appears satisfactory in a lignment and position. There is evidence of recent surgery with diffuse subcutaneous gas and soft ti ssue swelling noted. IMPRESSION: METALLIC HARDWARE FROM TOTAL RIGHT KNEE ARTHROPLASTY IS SATISFACTORY IN ALIGNMENT.
[2019-08-14 21:41] LABS: Glucose,Whole Blood 130 mg/dL (75-99)
[2019-08-15] MEDS: HYDROcodone/APAP 7.5-325MG 1 EACH TAB PO PRN ×2 (00:40→07:01)
[2019-08-15 07:13] LABS: Basophils % (A) 0 %; Eosinophils # (A) 0.1 k/uL (0-0.7); Eosinophils % (A) 1 %; HCT 36.7 % (34.0-46.0); Lymphocytes # (A) 1.1 k/uL (1.0-4.8); Lymphocytes % (A) 15 %; MCH 29.7 pg (25.0-35.0); MCHC 32.6 g/dL (31.0-37.0); MCV 91.2 fL (80.0-100.0); Mean Platelet Volume 8.1; Monocytes # (A) 0.6 k/uL (0-1.0); Monocytes % (A) 8 %; Neutrophils % (A) 73 %; Platelet Count 165 k/uL (150-450); RBC 4.03 m/uL (3.80-5.40); RDW 12.5 % (11.5-15.5); WBC 6.8 k/uL (3.8-10.6)
[2019-08-15 07:32] LABS: Glucose,Whole Blood 107 mg/dL (75-99)
[2019-08-15 08:20] VITALS: BP 115/66; PULSE 77; RESP 18; TEMP 97.9
[2019-08-15] MEDS ORDERED: RIVAROXABAN 10 MG TAB PO SCH (09:00)
--- NOTE | 2019-08-15 09:05 | P.PN ---
Progress Note - Text Progress Note Date: 08/15/19 Anesthesiology Patient seen in follow-up for right adductor canal catheter. Currently pain 6 out of 10tolerable. No numbness tingling around her lips ringing in ears. No associated paresthesias. Catheter site appears to be leaking local anesthetic around the catheter. Spoke with nurse and reassured patient please continue to reinforce dressing as long as fluid remains clear. Patient is currently happy with her pain control.
--- NOTE | 2019-08-15 11:44 | P.PN ---
Subjective Progress Note Date: 08/15/19 Principal diagnosis: Status post right total knee arthroplasty patient doing well at this time, she is examined at bedside. She's ambulated well with therapy. Her pain is currently controlled. She denies any chest pain or shortness of breath. Objective - Vital Signs Vital signs: Vital Signs Temp 97.9 F 08/15/19 07:00 Pulse 77 08/15/19 07:02 Resp 18 08/15/19 07:02 BP 115/66 08/15/19 07:00 Pulse Ox 95 08/15/19 07:00 Intake & Output 08/14/19 08/15/19 08/15/19 18:59 06:59 18:59 Intake Total 1550 100 Output Total 50 300 Balance 1500 -200 Weight 113 kg Intake: IV 1550 Intake, IV Titration 100 Amount ceFAZolin 2 gm In Sodium 100 Chloride 0.9% 50 ml @ 100 mls/hr IVPB Q8H VERONIKA Rx#: [id number] Output: Urine 300 Estimated Blood Loss 50 Other: Voiding Method Toilet Toilet # Voids 1 - Exam Right lower extremity: Incision is clean, dry, and intact. The exofin fusion tape is in good condition. There is minimal soft tissue swelling and ecchymosis surrounding the medial and lateral aspects of the incision. Calf is soft, no tenderness with palpation. Plantar flexion, dorsiflexion, EHL, FHL are intact. Sensory exam to light touch throughout the extremity is intact, dorsal pedis pulses 2+. - Labs CBC & Chem 7: 08/15/19 06:10 Labs: Abnormal Lab Results - Last 24 Hours (Table) 08/14/19 08/14/19 08/15/19 Range/Units 15:30 21:40 07:30 POC Glucose (mg/dL) 109 H 130 H 107 H (75-99) mg/dL Assessment and Plan Assessment: Status post right total knee arthroplasty Plan: Pain control, plan for discharge home on oral medication GI and DVT prophylaxis, Eliquis 2.5mg bi for 2 weeks Wound care instructions discussed Therapy and nursing after discharge Plan for discharge home today Time with Patient: Less than 30
--- NOTE | 2019-08-15 11:47 | P.DS ---
Providers Date of admission: 08/14/2019 Expected date of discharge: 08/15/19 Attending physician: Ac Walker Consults: 08/14/19 15:15 Consult Physician Routine Consulting Provider: Nneka Murdock Consult Reason/Comments: medical management Do you want consulting provider notified?: Yes Primary care physician: Stated None Hospital Course: Date of admission: 08/14/2019 Date of discharge: 08/15/2019 Admission diagnosis: Status post right total knee arthroplasty Discharge diagnosis: Same Attending physician: Dr. Walker Surgical procedures: Right total knee arthroplasty Brief history: Patient is a 54-year-old female with a history of with progressive primary right knee osteoarthritis. At this point patient has failed conservative treatment measures and has opted to proceed with a elective right total knee arthroplasty. Hospital course: Details of patient's surgery can be found in operative report. Patient tolerated the procedure well and was subsequently transported to orthopedic floor. Patient's orthopeidc and medical care was provided daily. Patient had daily laboratory tests performed for evaluation of overall blood counts. Patient had daily physical therapy to include strengthening range of motion as well as education with walker ambulation. Patient had daily CPM usage as part of their physical therapy program. Patient was treated with Xarelto for their postoperative DVT prophylaxis during their inpatient stay. Patient was noted to have a relatively uneventful postoperative course. Patient reported satisfactory pain control with oral pain medications by postoperative day 1. Patient showed satisfactory progress with physical therapy. Patient moved steadily through the program and had no difficulty meeting the goals by postoperative day 1. Given patient's otherwise satisfactory course and having met physical therapy goals, plan is to discharge patient home on postoperative day 1. Discharge condition/disposition: Patient will be discharged home in stable condition. Discharge medications: Instructions are given on resumption of patient's normal daily medications per primary care recommendation, in addition patient will be prescribed [place] 7.5 mg/325 mg, Colace 100 mg, Tramadol 50mg, Eliquis 2.5mg. Discharge instructions: 1. Wound care and infection precautions, keep incision dry and covered while showering, no lotions, creams, moisturizers. No soaking, tubs, pools, hottubs. Do not scrub over the incision. 2. Weight-bear as tolerated with walker / cane until follow-up. 3. Ice and elevate when necessary. Do not exceed 20 minutes per hour with ice pack. 4. Utilize compression sleeve until seen at first follow up appointment. 5. Visiting nursing care. 6. Home physical therapy including home CPM. 7. Pain meds and anticoagulants per prescription. 8. Pain medication has potential to cause constipation. Increase oral fluid and fiber intake. Contact primary care provider if you have not had a bowel movement within 48 hours after discharge 9. No anti-inflammatory medication until discussed at first post operative visit, this including Motrin, Aleve, Mobic, Diclofenac. 10. Follow up in office at 2 weeks postop with Baldemar Moody PA-C 11. Follow up with your primary care doctor 7-10 days after discharge. 12. Contact [facility] with any questions, . Procedures: Right total knee arthroplasty Patient Condition at Discharge: Good Plan - Discharge Summary Discharge Rx Participant: Yes New Discharge Prescriptions: New Docusate [Colace] 100 mg PO DAILY #30 capsule Apixaban [Eliquis] 2.5 mg PO BID #60 tab HYDROcodone/APAP 7.5-325MG [[place]kill 7.5] 1 - 2 each PO Q6HR PRN #56 tab PRN Reason: Pain traMADol HCl [Ultram] 50 mg PO Q6H PRN #28 tab PRN Reason: Pain No Action Levocetirizine Dihydrochloride [Xyzal] 5 mg PO HS Metoprolol Succinate (ER) [Toprol XL] 100 mg PO QAM Ferrous Sulfate [Feosol] 325 mg PO TID Calcium Citrate 500 mg PO TID Multivit-Min/Iron/Folic/Lutein [Centrum Silver Women Tablet] 1 each PO DAILY Omeprazole [PriLOSEC] 40 mg PO DAILY PRN PRN Reason: GERD Discharge Medication List Levocetirizine Dihydrochloride [Xyzal] 5 mg PO HS 02/01/18 [History] Metoprolol Succinate (ER) [Toprol XL] 100 mg PO QAM 02/01/18 [History] Calcium Citrate 500 mg PO TID 11/26/18 [History] Ferrous Sulfate [Feosol] 325 mg PO TID 11/26/18 [History] Multivit-Min/Iron/Folic/Lutein [Centrum Silver Women Tablet] 1 each PO DAILY 11/26/18 [History] Omeprazole [PriLOSEC] 40 mg PO DAILY PRN 08/12/19 [History] Apixaban [Eliquis] 2.5 mg PO BID #60 tab 08/15/19 [Rx] Docusate [Colace] 100 mg PO DAILY #30 capsule 08/15/19 [Rx] HYDROcodone/APAP 7.5-325MG [[place]kill 7.5] 1 - 2 each PO Q6HR PRN #56 tab 08/15/19 [Rx] traMADol HCl [Ultram] 50 mg PO Q6H PRN #28 tab 08/15/19 [Rx] Follow up Appointment(s)/Referral(s): [facility], [NON-STAFF] - Jose Moody, MADONNA [PHYSICIAN LABEL CUTTER] - 2 Weeks Activity/Diet/Wound Care/Special Instructions: Orthopedic Discharge Instructions: 1. Wound care and infection precautions, keep incision dry and covered while showering, no lotions, creams, moisturizers. No soaking, pools, hot tubs. Do not scrub over incision. 2. Weight-bear as tolerated with walker / cane until follow-up. 3. Ice and elevate when necessary. Do not exceed 20 minutes per hour with ice pack. 4. Utilize compression sleeve until seen at first follow up appointment. 5. Pain meds and anticoagulants per prescription. 6. Pain medication has potential to cause constipation. Increase oral fluid and fiber intake. Contact primary care provider if you have not had a bowel movement within 48 hours after discharge. 7. No anti-inflammatory medication until discussed at first post operative visit, this including Motrin, Aleve, Mobic, Diclofenac. 8. Follow up in office at 2 weeks postop with Baldemar Moody PA-C 9. Follow up with your primary care doctor 7-10 days after discharge. 10. Contact [facility] with any questions, [phone]. 11. *Please call [employer] once home to arrange delivery of Continuous Passive Motion (CPM) machine: [phone] Discharge Disposition: HOME WITH HOME HEALTH SERVICES
--- NOTE | 2019-08-15 15:00 | P.CONS ---
History of Present Illness - Reason for Consult recommendations regarding anti- hypertensive medications - History of Present Illness patient presents with a 48-year-old the female admitted for a right total knee arthroplasty patient the full catheter was removed feeling well patient did move her bowel. Denied any fever chills nausea vomiting abdominal pain dysuria. Patient is being discharged today patient on metoprolol which can be continued patient blood pressure and vitals are stable at this time Review of Systems REVIEW OF SYSTEMS: CONSTITUTIONAL: No fever, no malaise, no fatigue. HEENT: No recent visual problems or hearing problems. Denied any sore throat. CARDIOVASCULAR: No chest pain, orthopnea, PND, no palpitations, no syncope. PULMONARY: No shortness of breath, no cough, no hemoptysis. GASTROINTESTINAL: No diarrhea, no nausea, no vomiting, no abdominal pain. NEUROLOGICAL: No headaches, no weakness, no numbness. HEMATOLOGICAL: Denies any bleeding or petechiae. GENITOURINARY: Denies any burning micturition, frequency, or urgency. MUSCULOSKELETAL/RHEUMATOLOGICAL: Denies any joint pain, swelling, or any muscle pain. ENDOCRINE: Denies any polyuria or polydipsia. The rest of the 14-point review of systems is negative. Past Medical History Past Medical History: Diabetes Mellitus, GERD/Reflux, Hyperlipidemia, Hypertension, Osteoarthritis (OA) Additional Past Medical History / Comment(s): EGD SHOWED GASTRIC ULCER, HIATAL HERNIA. PAIN IN KNEES. currently off htn, cholesterol and diabetes meds after bariatric sx in April 2018 History of Any Multi-Drug Resistant Organisms: None Reported Past Surgical History: Bariatric Surgery, Cholecystectomy, Orthopedic Surgery, Tonsillectomy Additional Past Surgical History / Comment(s): bilateral knee arthroscopic surgery. EGD sleeve gastrectomy 05-14-18 Past Anesthesia/Blood Transfusion Reactions: No Reported Reaction Past Psychological History: No Psychological Hx Reported Smoking Status: Never smoker Past Alcohol Use History: None Reported Past Drug Use History: None Reported Additional Drug Use History / Comment(s): cbd use occasionally instructed to hold 24 hrs prior to procedure - Past Family History Mother Family Medical History: Cancer Additional Family Medical History / Comment(s): multiple myeloma,breast cancer Medications and Allergies Home Medications Medication Instructions Recorded Confirmed Type Levocetirizine Dihydrochloride 5 mg PO HS 02/01/18 08/14/19 History [Xyzal] Metoprolol Succinate (ER) [Toprol 100 mg PO QAM 02/01/18 08/14/19 History XL] Calcium Citrate 500 mg PO TID 11/26/18 08/14/19 History Ferrous Sulfate [Feosol] 325 mg PO TID 11/26/18 08/14/19 History Multivit-Min/Iron/Folic/Lutein 1 each PO DAILY 11/26/18 08/14/19 History [Centrum Silver Women Tablet] Omeprazole [PriLOSEC] 40 mg PO DAILY PRN 08/12/19 08/14/19 History Apixaban [Eliquis] 2.5 mg PO BID #60 tab 08/15/19 Rx Docusate [Colace] 100 mg PO DAILY #30 capsule 08/15/19 Rx HYDROcodone/APAP 7.5-325MG [[place] 1 - 2 each PO Q6HR PRN #56 tab 08/15/19 Rx 7.5] traMADol HCl [Ultram] 50 mg PO Q6H PRN #28 tab 08/15/19 Rx Allergies Allergy/AdvReac Type Severity Reaction Status Date / Time Sulfa (Sulfonamide Allergy Rash/Hives Verified 08/14/19 11:48 Antibiotics) Physical Exam Vitals: Vital Signs Temp Pulse Pulse Resp BP Pulse Ox 08/15/19 07:02 77 18 08/15/19 07:00 97.9 F 77 18 115/66 95 08/15/19 04:00 16 08/15/19 03:50 98.2 F 61 105/65 96 08/15/19 00:00 16 08/14/19 19:03 45 L 122/73 95 08/14/19 18:43 44 L 127/75 95 08/14/19 18:28 51 L 129/81 95 08/14/19 18:13 48 L 134/72 97 08/14/19 17:58 51 L 135/80 97 08/14/19 17:43 52 L 137/81 100 08/14/19 17:28 48 L 131/80 98 08/14/19 17:13 48 L 131/80 98 08/14/19 16:58 49 L 117/55 100 08/14/19 16:43 52 L 136/74 95 08/14/19 16:28 62 129/73 95 08/14/19 16:00 48 L 16 123/62 100 08/14/19 15:45 41 L 16 129/68 98 08/14/19 15:30 48 L 16 133/71 95 08/14/19 15:15 97.5 F L 57 L 16 133/68 92 L Intake and Output 08/14/19 08/15/19 08/15/19 22:59 06:59 14:59 Intake Total 50 50 Output Total 300 Balance -250 50 Intake: Intake, IV Titration 50 50 Amount ceFAZolin 2 gm In Sodium 50 50 Chloride 0.9% 50 ml @ 100 mls/hr IVPB Q8H [facility] Rx#: [id number] Output: Urine 300 Other: Voiding Method Toilet Toilet # Voids 2 1 Weight 113 kg PHYSICAL EXAMINATION: GENERAL: The patient is alert and oriented x3, not in any acute distress. obese HEENT: Pupils are round and equally reacting to light. EOMI. No scleral icterus. No conjunctival pallor. Normocephalic, atraumatic. No pharyngeal erythema. No thyromegaly. CARDIOVASCULAR: S1 and S2 present. No murmurs, rubs, or gallops. PULMONARY: Chest is clear to auscultation, no wheezing or crackles. ABDOMEN: Soft, nontender, nondistended, normoactive bowel sounds. No palpable organomegaly. MUSCULOSKELETAL: No joint swelling or deformity. EXTREMITIES: No cyanosis, clubbing, or pedal edema. NEUROLOGICAL: Gross neurological examination did not reveal any focal deficits. SKIN: No rashes. Results CBC & Chem 7: 08/15/19 06:10 Labs: Abnormal Lab Results - Last 24 Hours (Table) 08/14/19 08/14/19 08/15/19 Range/Units 15:30 21:40 07:30 POC Glucose (mg/dL) 109 H 130 H 107 H (75-99) mg/dL Assessment and Plan Plan: -hypertension continue with metoprolol -knee arthroplasty patient is on Eliquis which can be continued -gastroesophageal reflux disease
== END 2019-08-15 13:35 | disposition home health service (06) ==
LOC: OR 11:21 → 4SSUR 15:12 → OR 08-15 11:43
PROVIDERS: ADMIT Orthopaedic Surgery; ATTEND Orthopaedic Surgery
DX: M17.11 Unilateral primary osteoarthritis, right knee (principal); M25.761 Osteophyte, right knee; E66.9 Obesity, unspecified; Z68.39 Body mass index [BMI] 39.0-39.9, adult; I10 Essential (primary) hypertension; E11.9 Type 2 diabetes mellitus without complications; K21.9 Gastro-esophageal reflux disease without esophagitis; K44.9 Diaphragmatic hernia without obstruction or gangrene; Z90.49 Acquired absence of other specified parts of digestive tract; Z98.84 Bariatric surgery status; Z82.49 Family history of ischemic heart disease and other diseases of the circulatory system; Z80.9 Family history of malignant neoplasm, unspecified; E78.5 Hyperlipidemia, unspecified; Z79.899 Other long term (current) drug therapy; Z88.2 Allergy status to sulfonamides
CPT/HCPCS: 27447; 97110; 97161; 64448; 76942; 85025; 88300; 73560; G0378; C1713; C1776; J2250; J0171; J0690 ×2; J3010; J1885; J2795 ×2; J2704; J0735; J1170

== ENCOUNTER → 2019-12-30 | Outpatient (CLI) | payer OTHER ==
[2019-12-30 08:59] LABS: Basophils # (A) 0.1 k/uL (0-0.2); Basophils % (A) 1 %; Eosinophils # (A) 0.2 k/uL (0-0.7); Eosinophils % (A) 3 %; HGB 14.9 gm/dL (11.4-16.0); Lymphocytes # (A) 1.4 k/uL (1.0-4.8); Lymphocytes % (A) 22 %; MCH 30.6 pg (25.0-35.0); MCHC 33.1 g/dL (31.0-37.0); MCV 92.4 fL (80.0-100.0); Mean Platelet Volume 7.4; Monocytes # (A) 0.4 k/uL (0-1.0); Monocytes % (A) 7 %; Neutrophils # (A) 4.1 k/uL (1.3-7.7); Neutrophils % (A) 66 %; Platelet Count 187 k/uL (150-450); RBC 4.87 m/uL (3.80-5.40); WBC 6.2 k/uL (3.8-10.6)
[2019-12-30 09:19] LABS: Potassium 4.4 mmol/L (3.5-5.1)
== END | disposition home or self-care (01) ==
LOC: LABPAT 07:50
PROVIDERS: ATTEND Orthopaedic Surgery
DX: Z01.818 Encounter for other preprocedural examination (principal); Z01.812 Encounter for preprocedural laboratory examination; M17.12 Unilateral primary osteoarthritis, left knee
CPT/HCPCS: 36415; 80051; 85025; 85610; 87070

== ENCOUNTER 2020-01-14 06:20 | Day surgery (SDC) | payer OTHER ==
[2020-01-09 14:48] VITALS: BMI 39.9
--- NOTE | 2020-01-13 09:59 | HP ---
HISTORY AND PHYSICAL CHIEF COMPLAINT: Left knee pain. 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 She has exhausted extensive conservative measures. She notes the pain limits her normal function and activities. PAST MEDICAL HISTORY: Significant for hypertension, arthritis, [id number] diabetes. PAST SURGICAL HISTORY: Significant for recent right total knee arthroplasty, bilateral knee arthroscopy, gallbladder removal. CURRENT MEDICATIONS: Metformin, Toprol, Clarinex, hydrochlorothiazide, and Prilosec. ALLERGIES TO: SULFA. FAMILY HISTORY: Significant for heart disease and cancer. SOCIAL HISTORY: Negative for current tobacco or alcohol use. 16 POINT REVIEW OF SYSTEMS: Otherwise reviewed and is noncontributory. PHYSICAL EXAMINATION: On examination, the patient is approximately 5 foot 5, 247 pounds of endomorphic habitus. HEENT: Exam is nonfocal. NECK: Supple. She has painless passive motion of her left hip. Straight leg raise is negative. Active motion left knee -8 to 100 degrees of flexion. She is tender about the medial joint line. She has mild effusion. Collaterals are stable, Melisa is negative, Clare's is equivocal. She has genu varum alignment. Her distal neurovascular appears intact in the left lower extremity. Previous weightbearing notch, lateral Merchant views left knee obtained in the office show severe medial and patellofemoral compartment narrowing with [id number] changes. There is subchondral sclerosis. IMPRESSION: 1. Left knee severe medial and patellofemoral compartment osteoarthrosis. 2. Non-insulin dependent diabetes. 3. Increased body mass index. RECOMMENDATIONS: I talked to the patient at length regarding her condition and treatment options. At this point, she is quite symptomatic and limited because of pain related to her osteoarthrosis despite previous extensive conservative treatment. After thorough discussion, she opts to proceed with surgery. We will plan to proceed with left total knee arthroplasty. Risks, benefits were discussed at length in layman's terms. Will institute DVT prophylaxis postoperatively. MMODL / IJN: [id number] /
[~2020-01-14 06:20] MED LIST changes: +MELOXICAM 7.5 MG TAB PO ONE; +ONDANSETRON 4 MG/2 ML VIAL IVP ONE; -fentaNYL (PF) 50 MCG/ML 2 ML AMP IV PRN
[2020-01-14] MEDS ORDERED: ONDANSETRON 4 MG/2 ML VIAL ONE (06:43)
[2020-01-14] MEDS ORDERED: DEXAMETHASONE SOD PHOSPHATE 4 MG/ML 1 ML VIAL IV ONE (07:11)
[2020-01-14] MEDS ORDERED: LIDOCAINE 1% (10MG/ML) FOR IV START INTRADERMA ONE (07:11)
[2020-01-14] MEDS: LACTATED RINGERS 1,000 ML IV SCH ×3 (07:19→21:22)
[2020-01-14] MEDS: fentaNYL (PF) 50 MCG/ML 2 ML AMP IV PRN ×2 (07:21→07:37)
[2020-01-14] MEDS ORDERED: MIDAZOLAM 2 MG/2 ML VIAL IV ONE ×2 (07:21→07:37)
[2020-01-14] MEDS ORDERED: SODIUM CHLORIDE 0.9% 100 ML BAG ONE ×2 (07:51)
[2020-01-14] MEDS ORDERED: PROPOFOL 10 MG/ML 20 ML VIAL IV ONE (07:51)
[2020-01-14] MEDS ORDERED: fentaNYL (PF) 50 MCG/ML 2 ML AMP ONE (07:51)
[2020-01-14] MEDS ORDERED: TRANEXAMIC ACID 1,000 MG/10 ML VIAL ONE (07:51)
[2020-01-14] MEDS ORDERED: MIDAZOLAM 2 MG/2 ML VIAL ONE (07:51)
[2020-01-14] MEDS ORDERED: ceFAZolin 3,000 MG in SODIUM CHLORIDE 0.9% IRRIGATIO 3,000 ML IRRIGATION ONE (08:31)
[2020-01-14] MEDS ORDERED: ONDANSETRON 4 MG/2 ML VIAL IVP PRN (09:58)
[2020-01-14] MEDS ORDERED: MAGNESIUM HYDROXIDE 2,400 MG/10 ML CUP PO PRN (09:58)
[2020-01-14] MEDS ORDERED: HYDROmorphone 1 MG/ML 1 ML SYRINGE IVP PRN (09:58)
[2020-01-14] MEDS ORDERED: NALOXONE 0.4 MG/ML 1 ML VIAL IV PRN (09:58)
[2020-01-14] MEDS ORDERED: ACETAMINOPHEN TAB 325 MG TAB PO PRN (09:58)
[2020-01-14] MEDS ORDERED: HYDROmorphone 0.5 MG/0.5 ML SYRINGE IVP PRN (09:58)
[2020-01-14] MEDS ORDERED: traMADol 50 MG TAB PO PRN (09:58)
--- NOTE | 2020-01-14 10:01 | P.OP ---
Date of Procedure: 01/14/20 Preoperative Diagnosis: Left knee severe tricompartmental arthrosis Postoperative Diagnosis: Same Procedure(s) Performed: Left total knee arthroplastycementedposterior stabilized Implants: Depuy Attune size 5 cemented femoral component, size 4 cemented tibial component, 11 mm articular surface, 32 mm cemented patellar component. Anesthesia: regional, local, spinal Surgeon: Ac Walker Chief Lock Tender Operator #1: Jose Moody Estimated Blood Loss (ml): 50 Pathology: other (Bone fragments) Condition: stable Disposition: PACU Indications for Procedure: The patient is a 54-year-old female presents with progressive left knee pain s econdary to osteoarthrosis despite extensive conservative treatment. A discussion of the risks and benefits of continued conservative measures versus operative intervention was made with patient. She opted to proceed with surgery. Operative risks to include infection, neurovascular injury, development of blood clots, possible component loosening, possible component failure and need for subsequent procedures was discussed. Informed consent was obtained. Operative Findings: Same Description of Procedure: The patient was brought to the operating room, and after induction of spinal anesthesia the left lower extremity was prepped and draped in a normal fashion. The tourniquet was inflated to 270 mm marker. A longitudinal incision extending 3 finger breaths above the superior pole of patella extending to the medial aspect the tibial tubercle was then made. The skin and subcutaneous tissues were divided sharply. Electrocautery was used for hemostasis. A medial parapatellar arthrotomy was performed. The medial soft tissues to include the superficial and deep portions of the medial collateral ligament were elevated subperiosteally. The patella was everted. A portion of the retropatellar fat pad was excised sharply. The anterior cruciate ligament was sacrificed. Blunt retractors were placed. A starting hole was made in the distal femur 1 cm anterior to the posterior cruciate ligament origin. An intramedullary femoral guide was then inserted planning on 5 valgus distal cut with 9 mm distal resection. The cutting block was pinned in place. The distal cut was then made. The posterior referencing sizing guide was utilized. I felt size 5 was most appropriate. 3 of external rotation was built into the system and verified off the trans-epicondylar axis and the posterior condyles. The cutting block was pinned in place. The anterior, posterior, and chamfer cuts then made. Bone fragments were removed. The intercondylar guide was placed and the notch cut was made with a sagittal saw. The bone block was removed in one fragment. The trial component was then placed. There is good anterior to posterior and medial to lateral fit. The distal peg holes were drilled. The trial component was removed. Attention was then paid towards preparing the proximal femur. An extra medullary guide was utilized in line with the tibial shaft and second metatarsal distally. I planned on 2 mm resection from the medial compartment. The cutting block was pinned in place. The proximal tibial cut was then made. The bone was removed in one fragment. The remnants of the medial and lateral menisci were excised at the capsular junction with electrocautery. The tibia sized most appropriately at size 4. The trial femoral and tibial components were placed along with an 11 mm articular surface. I was able to obtain full flexion and extension with internal and external rotation. After several flexion and extension cycles, the tibial rotation was marked with electrocautery line with the medial one third of the tibial tubercle. Attention was then paid towards preparing the patella. A patella reamer was utilized taking stem to 14 mm of bone stock. A good flush cut was made. The patella sized most appropriately 32 mm. The peg holes were drilled. The trial components placed. I had good patellofemoral tracking with no hands technique. The trial components were then removed. The tibia was prepared in the appropriate rotation with appropriate drill and keel punch. The posterior osteophytes were removed with a curved osteotome. The flexion and extension gaps were checked and felt to be symmetric at 11 mm. A trial components were then removed. The posterior soft tissues were injected with ropivacaine. The bony surfaces were prepared with pulsatile lavage and dried. The tibial component was then cemented place was fully seated. Excess cement was removed. The femoral component cemented place and was fully seated. Excess cement was removed. The trial 11 mm articular surface was placed and the knee was put in full extension. The patella component was cemented place. After the cement had sufficiently hardened, the knee was again taken through a range of motion. Again I was able to obtain full flexion and extension with varus and valgus stress. The trial 11 mm articular surface was removed and the final one inserted. This was fully seated. Care was taken to avoid any soft tissue interposition. Pulsatile lavage was again utilized. The medial parapatellar arthrotomy was closed with #2 Ethibond suture. The tourniquet was deflated with approximately 60 minutes total tourniquet time. Final hemostasis was obtained with the cautery. There was minimal bleeding therefore a deep drain was not placed. The subcutaneous tissues were reapproximated with interrupted 2-0 Vicryl sutures. The skin was reapproximated with 3-0 subcuticular strata fix suture. Skin tape and adhesive was applied. A sterile dressing was applied. The patient was awoken from sedation and transferred to recovery room in good condition. Blood loss was estimated at 50 mL. No complications were incurred. Sponge and needle counts were correct at the end of the case. Baldemar TERRAZAS assisted during the major components of this case to include exposure, bone resection, implantation, and closure.
[2020-01-14] MEDS ORDERED: HYDROcodone/APAP 7.5-325MG 1 EACH TAB PO PRN (10:02)
[2020-01-14] MEDS ORDERED: ROPIVACAINE 0.2%-NS ON-Q PUMP 1,090 MG, EMPTY PAIN BALL 1 EACH MISCELLANE PRN (10:07)
--- NOTE | 2020-01-14 10:36 | XR ---
EXAMINATION TYPE: XR knee limited LT DATE OF EXAM: 01/14/2020 COMPARISON: NONE HISTORY: Postop evaluation TECHNIQUE: Left knee 2 views FINDINGS: Tibial and femoral components of in place. Soft tissue postsurgical changes are noted. No a cute fracture is identified. IMPRESSION: No acute fractures post knee replacement.
--- NOTE | 2020-01-14 10:44 | P.ANPRN ---
Procedure Note - Anesthesia - Nerve Block Performed Left Adductor Canal Infusion Time Out Performed: Yes (720) Date of Procedure: 01/14/20 Procedure Start Time: : Procedure Stop Time: Location of Patient: PreOp Indication: Acute Post-Operative Pain, Requested by Surgeon Specifically requested for management of pain by DrCarisa: Ac Walker Sedation Type: Sedate with meaningful contact maintained Preparation: Sterile Prep Position: Supine Catheter Depth at Skin (cm): 8 Catheter: Indwelling Needle Types: Pajunk Needle Gauge: 21 Ultrasound used to visualize needle placement: Yes Ultrasound used to observe medication spread: Yes Injectate: 0.5% Ropivacaine (see comment for volume) (20cc) Blood Aspirated: No Pain Paresthesia on Injection Noted: No Resistance on Injection: Normal Image Stored and Saved: Yes Events: Uneventful and Well Tolerated
[2020-01-14] MEDS ORDERED: LACTATED RINGERS 1,000 ML IV ONE ×2 (11:01)
[2020-01-14] MEDS ORDERED: PANTOPRAZOLE 40 MG TABLET PO PRN (15:51)
[2020-01-14] MEDS: CALCIUM CARBONATE 500 MG CHEWABLE PO SCH ×2 (16:52→21:22)
[2020-01-14] MEDS ORDERED: SENNOSIDES-DOCUSATE SODIUM 1 EACH TAB PO SCH (21:00)
[2020-01-14] MEDS: HYDROcodone/APAP 7.5-325MG 1 EACH TAB PO PRN (21:22)
[2020-01-14] MEDS: FERROUS SULFATE 325 MG TAB PO SCH (21:23)
[2020-01-15 04:25] VITALS: TEMP 97.7
[2020-01-15 06:37] LABS: Basophils % (A) 0 %; Eosinophils % (A) 0 %; HCT 36.3 % (34.0-46.0); HGB 12.2 gm/dL (11.4-16.0); Lymphocytes % (A) 12 %; MCH 30.4 pg (25.0-35.0); MCHC 33.6 g/dL (31.0-37.0); MCV 90.3 fL (80.0-100.0); Mean Platelet Volume 7.8; Monocytes # (A) 0.5 k/uL (0-1.0); Monocytes % (A) 6 %; Neutrophils # (A) 6.6 k/uL (1.3-7.7); Neutrophils % (A) 81 %; Platelet Count 157 k/uL (150-450); RBC 4.02 m/uL (3.80-5.40); RDW 12.7 % (11.5-15.5); WBC 8.2 k/uL (3.8-10.6)
--- NOTE | 2020-01-15 06:49 | P.PN ---
Progress Note - Text The patient is status post left adductor canal catheter placement. The catheter was placed for postoperative pain control, status post total left arthroplasty. Ropivacaine 0.2% is infusing at 8 mLs per hour. The patient has no complaints of left lower extremity numbness or weakness. Patient's VAS score is 1-2-10. Assessment: Patient's adductor canal catheter is in place and working appropriately. Plan: continue infusion and adjust it as needed.
[2020-01-15 07:19] VITALS: BP 138/76; PULSE 51; RESP 17
[2020-01-15] MEDS: HYDROcodone/APAP 7.5-325MG 1 EACH TAB PO PRN ×2 (07:21→12:58)
[2020-01-15] MEDS: CALCIUM CARBONATE 500 MG CHEWABLE PO SCH ×2 (07:21→12:58)
[2020-01-15] MEDS ORDERED: MULTIVITAMINS, THERA 1 EACH TAB PO SCH (09:00)
[2020-01-15] MEDS ORDERED: RIVAROXABAN 10 MG TAB PO SCH (09:00)
[2020-01-15] MEDS ORDERED: MAGNESIUM OXIDE 400 MG TAB PO SCH (09:00)
[2020-01-15] MEDS ORDERED: METOPROLOL SUCCINATE (ER) 100 MG TAB.ER.24H PO SCH (09:00)
[2020-01-15] MEDS: FERROUS SULFATE 325 MG TAB PO SCH (09:16)
--- NOTE | 2020-01-15 11:24 | P.PN ---
Subjective Progress Note Date: 01/15/20 Principal diagnosis: Status post left total knee arthroplasty Patient evaluated at bedside today, she is resting comfortably her hospital chair. Her pain is well-controlled. She's ambulated well with therapy. She has no acute complaints at this time. She denies any headaches, lightheadedness, chest pain, shortness of breath, fever or chills, nausea or vomiting. Objective - Vital Signs Vital signs: Vital Signs Temp 97.7 F 01/15/20 07:19 Pulse 51 L 01/15/20 07:19 Resp 17 01/15/20 07:19 BP 138/76 01/15/20 07:19 Pulse Ox 97 01/15/20 07:19 Intake & Output 01/14/20 01/15/20 01/15/20 18:59 06:59 18:59 Intake Total 1201 400 Output Total 50 Balance 1151 400 Weight 116 kg Intake: IV 1201 Intake, IV Titration 400 Amount Lactated Ringers 1,000 ml 400 @ 50 mls/hr IV .Q20H [facility] Rx#:[id number] Output: Estimated Blood Loss 50 Other: Voiding Method Toilet # Voids 3 1 - Exam Left lower extremity: Incision is clean, dry, and intact. The [exofin fusion tape] is in good condition. [There is minimal soft tissue swelling and ecchymosis surrounding the medial and lateral aspects of the incision.] Calf is soft, no tenderness with palpation. Plantar flexion, dorsiflexion, EHL, FHL are intact. Sensory exam to light touch throughout the extremity is intact, [dorsal pedis pulses 2+.] - Labs CBC & Chem 7: 01/15/20 06:11 Assessment and Plan Assessment: Postop left total knee arthroplasty Plan: Pain control, plan for discharge home on [place] and tramadol DVT prophylaxis, patient will take Eliquis 2.5 mg for 10-12 days Wound care instructions were discussed, icing and elevating techniques discussed Home therapy and nursing after discharge Medical recommendations Discharge planning: Patient stable for discharge home today Time with Patient: Less than 30
--- NOTE | 2020-01-15 11:27 | P.DS ---
Providers Date of admission: 01/14/2020 Expected date of discharge: 01/15/20 Attending physician: Ac Walker Consults: 01/14/20 10:02 Consult Physician Routine Consulting Provider: Yolanda Ortega Consult Reason/Comments: Medical Management Do you want consulting provider notified?: Yes Primary care physician: Brooks Hospital Course: Date of admission: 01/14/2020 Date of discharge: 01/15/2020 Admission diagnosis: Status post left total knee arthroplasty Discharge diagnosis: Same Attending physician: Dr. Walker Surgical procedures: Left total knee arthroplasty Brief history: Patient is a 54-year-old female with a history of progressive primary left knee osteoarthritis. At this point patient has failed conservative treatment measures and has opted to proceed with a elective left total knee arthroplasty. Hospital course: Details of patient's surgery can be found in operative report. Patient tolerated the procedure well and was subsequently transported to orthopedic floor. Patient's orthopeidc and medical care was provided daily. Patient had daily laboratory tests performed for evaluation of overall blood counts . Patient had daily physical therapy to include strengthening range of motion as well as education with walker ambulation. Patient was treated with Xarelto for their postoperative DVT prophylaxis during their inpatient stay. Patient was noted to have a relatively uneventful postoperative course. Patient reported satisfactory pain control with oral pain medications by postoperative day 0. Patient showed satisfactory progress with physical therapy. Patient moved steadily through the program and had no difficulty meeting the goals by postoperative day 1. Given patient's otherwise satisfactory course and having met physical therapy goals, plan is to discharge patient home on postoperative day 1. Discharge condition/disposition: Patient will be discharged home in stable condition. Discharge medications: Instructions are given on resumption of patient's normal daily medications per primary care recommendation, in addition patient will be prescribed tramadol 50 mg, Eliquis 2.5 mg. Discharge instructions: 1. Wound care and infection precautions, keep incision dry and covered while showering, no lotions, creams, moisturizers. No soaking, tubs, pools, hottubs. Do not scrub over the incision. 2. Weight-bear as tolerated with walker / cane until follow-up. 3. Ice and elevate when necessary. Do not exceed 20 minutes per hour with ice pack. 4. Utilize compression sleeve until seen at first follow up appointment. 5. Visiting nursing care. 6. Home physical therapy including home CPM. 7. Pain meds and anticoagulants per prescription. 8. Pain medication has potential to cause constipation. Increase oral fluid and fiber intake. Contact primary care provider if you have not had a bowel movement within 48 hours after discharge 9. No anti-inflammatory medication until discussed at first post operative v isit, this including Motrin, Aleve, Mobic, Diclofenac. 10. Follow up in office at 2 weeks postop with Baldemar Moody PA-C 11. Follow up with your primary care doctor 7-10 days after discharge. 12. Contact [facility] with any questions, . Procedures: Left total knee arthroplasty Patient Condition at Discharge: Good Plan - Discharge Summary Discharge Rx Participant: Yes New Discharge Prescriptions: New Apixaban [Eliquis] 2.5 mg PO BID #24 tab traMADol HCl [Ultram] 50 mg PO Q6H PRN #28 tab PRN Reason: Pain Continue Levocetirizine Dihydrochloride [Xyzal] 5 mg PO HS Ferrous Sulfate [Iron (65 MG Elemental)] 325 mg PO BID Calcium Citrate 500 mg PO TID Multivit-Min/Iron/Folic/Lutein [Centrum Silver Women Tablet] 1 each PO DAILY Omeprazole [PriLOSEC] 40 mg PO DAILY PRN PRN Reason: GERD Magnesium 200 mg PO DAILY Cannabidiol (Cbd) [Epidiolex] 1 dose TOPICAL DAILY PRN PRN Reason: Pain Changed Metoprolol Succinate (ER) [Toprol XL] 50 mg PO QAM #0 Discharge Medication List Levocetirizine Dihydrochloride [Xyzal] 5 mg PO HS 02/01/18 [History] Calcium Citrate 500 mg PO TID 11/26/18 [History] Ferrous Sulfate [Iron (65 MG Elemental)] 325 mg PO BID 11/26/18 [History] Multivit-Min/Iron/Folic/Lutein [Centrum Silver Women Tablet] 1 each PO DAILY 11/26/18 [History] Omeprazole [PriLOSEC] 40 mg PO DAILY PRN 08/12/19 [History] Cannabidiol (Cbd) [Epidiolex] 1 dose TOPICAL DAILY PRN 01/09/20 [History] Magnesium 200 mg PO DAILY 01/09/20 [History] Apixaban [Eliquis] 2.5 mg PO BID #24 tab 01/15/20 [Rx] Metoprolol Succinate (ER) [Toprol XL] 50 mg PO QAM #0 01/15/20 [Rx] traMADol HCl [Ultram] 50 mg PO Q6H PRN #28 tab 01/15/20 [Rx] Follow up Appointment(s)/Referral(s): [facility] [NON-STAFF] - As Needed (Continuous Passive Motion knee machine) [facility], [NON-STAFF] - As Needed Jose Moody PAC [PHYSICIAN VICE PRESIDENT OF NURSING] - 01/31/20 1:50 pm Elif Rose DO [Primary Care Provider] - 01/21/20 1:30 pm () Activity/Diet/Wound Care/Special Instructions: Orthopedic Discharge Instructions: 1. Wound care and infection precautions, keep incision dry and covered while showering, no lotions, creams, moisturizers. No soaking, pools, hot tubs. Do not scrub over incision. 2. Weight-bear as tolerated with walker / cane until follow-up. 3. Ice and elevate when necessary. Do not exceed 20 minutes per hour with ice pack. 4. Utilize compression sleeve until seen at first follow up appointment. 5. Pain meds and anticoagulants per prescription. 6. Pain medication has potential to cause constipation. Increase oral fluid and fiber intake. Contact primary care provider if you have not had a bowel movement within 48 hours after discharge. 7. No anti-inflammatory medication until discussed at first post operative visit, this including Motrin, Aleve, Mobic, Diclofenac. 8. Follow up in office at 2 weeks postop with Baldemar Moody PA-C 9. Follow up with your primary care doctor 7-10 days after discharge. 10. Contact [facility] with any questions, . Discharge Disposition: HOME WITH HOME HEALTH SERVICES
--- NOTE | 2020-01-15 13:30 | P.CONS ---
History of Present Illness - Reason for Consult Hypertension - History of Present Illness Patient is status post left total knee arthroplasty. Patient is clinically doing well and will be discharged today patient is mildly bradycardic. She is on beta grabiel sustained-release 100 mg which I'll cut it down to 50 mg patient uses medication for hypertension. Patient the probably will benefit from calcium channel grabiel down the line if she needs medications for hypertension. Patient is passing gas pain-free patient is is clinically doing well is being discharged today. Review of Systems REVIEW OF SYSTEMS: CONSTITUTIONAL: No fever, no malaise, no fatigue. HEENT: No recent visual problems or hearing problems. Denied any sore throat. CARDIOVASCULAR: No chest pain, orthopnea, PND, no palpitations, no syncope. PULMONARY: No shortness of breath, no cough, no hemoptysis. GASTROINTESTINAL: No diarrhea, no nausea, no vomiting, no abdominal pain. NEUROLOGICAL: No headaches, no weakness, no numbness. HEMATOLOGICAL: Denies any bleeding or petechiae. GENITOURINARY: Denies any burning micturition, frequency, or urgency. MUSCULOSKELETAL/RHEUMATOLOGICAL: Denies any joint pain, swelling, or any muscle pain. ENDOCRINE: Denies any polyuria or polydipsia. The rest of the 14-point review of systems is negative. Past Medical History Past Medical History: Hyperlipidemia, Hypertension, Osteoarthritis (OA) Additional Past Medical History / Comment(s): HIATAL HERNIA. PAIN IN KNEES. currently off cholesterol and diabetes meds after bariatric sx in April 2018 History of Any Multi-Drug Resistant Organisms: None Reported Past Surgical History: Bariatric Surgery, Cholecystectomy, Joint Replacement, Orthopedic Surgery, Tonsillectomy Additional Past Surgical History / Comment(s): bilateral knee arthroscopic surgery. EGD sleeve gastrectomy 05-14-18, rt knee replacement Past Anesthesia/Blood Transfusion Reactions: No Reported Reaction Smoking Status: Never smoker - Past Family History Mother Family Medical History: Cancer Additional Family Medical History / Comment(s): multiple myeloma,breast cancer Medications and Allergies Home Medications Medication Instructions Recorded Confirmed Type Levocetirizine Dihydrochloride 5 mg PO HS 02/01/18 01/14/20 History [Xyzal] Calcium Citrate 500 mg PO TID 11/26/18 01/14/20 History Ferrous Sulfate [Iron (65 MG 325 mg PO BID 11/26/18 01/14/20 History Elemental)] Multivit-Min/Iron/Folic/Lutein 1 each PO DAILY 11/26/18 01/14/20 History [Centrum Silver Women Tablet] Omeprazole [PriLOSEC] 40 mg PO DAILY PRN 08/12/19 01/14/20 History Cannabidiol (Cbd) [Epidiolex] 1 dose TOPICAL DAILY PRN 01/09/20 01/14/20 History Magnesium 200 mg PO DAILY 01/09/20 01/14/20 History Apixaban [Eliquis] 2.5 mg PO BID #24 tab 01/15/20 Rx Metoprolol Succinate (ER) [Toprol 50 mg PO QAM #0 01/15/20 01/14/20 Rx XL] traMADol HCl [Ultram] 50 mg PO Q6H PRN #28 tab 01/15/20 Rx Allergies Allergy/AdvReac Type Severity Reaction Status Date / Time Sulfa (Sulfonamide Allergy Rash/Hives Verified 01/14/20 06:43 Antibiotics) Physical Exam Vitals: Vital Signs Temp Pulse Resp BP Pulse Ox 01/15/20 07:19 97.7 F 51 L 17 138/76 97 01/15/20 02:25 97.7 F 55 L 16 112/63 95 01/14/20 23:40 16 01/14/20 20:00 55 L 16 01/14/20 19:20 98.5 F 55 L 16 121/75 98 01/14/20 13:50 97.9 F 67 16 134/69 97 01/14/20 13:30 58 L 16 146/74 96 Intake and Output 01/14/20 01/15/20 01/15/20 22:59 06:59 14:59 Intake Total 400 Balance 400 Intake: Intake, IV Titration 400 Amount Lactated Ringers 1,000 ml 400 @ 50 mls/hr IV .Q20H [facility] Rx#:[id number] Other: Voiding Method Toilet Toilet # Voids 1 1 PHYSICAL EXAMINATION: GENERAL: The patient is alert and oriented x3, not in any acute distress. Well developed, well nourished. HEENT: Pupils are round and equally reacting to light. EOMI. No scleral icterus. No conjunctival pallor. Normocephalic, atraumatic. No pharyngeal erythema. No thyromegaly. CARDIOVASCULAR: S1 and S2 present. No murmurs, rubs, or gallops. PULMONARY: Chest is clear to auscultation, no wheezing or crackles. ABDOMEN: Soft, nontender, nondistended, normoactive bowel sounds. No palpable organomegaly. MUSCULOSKELETAL: Deferred to orthopedic surgery EXTREMITIES: No cyanosis, clubbing, or pedal edema. NEUROLOGICAL: Gross neurological examination did not reveal any focal deficits. SKIN: No rashes. Results CBC & Chem 7: 01/15/20 06:11 Assessment and Plan Plan: -Bradycardia: Most probably sinus bradycardia will cut down the dose of metoprolol. -Hypertension: Patient can resume half dose of metoprolol if needed calcium Grabiel Can Be Added. -Knee Arthroplasty: Pain Management As per Primary Service and Patient Is Being Discharged on Eliquis Is Due To Prophylaxis -Gastroesophageal Reflux Disease Patient can be discharged from medical perspective
== END 2020-01-15 13:21 | disposition home health service (06) ==
LOC: OR 06:20 → 4SSUR 09:57 → OR 01-15 13:21
PROVIDERS: ATTEND Orthopaedic Surgery
DX: M17.12 Unilateral primary osteoarthritis, left knee (principal); Z96.651 Presence of right artificial knee joint; E11.9 Type 2 diabetes mellitus without complications; I10 Essential (primary) hypertension; E78.5 Hyperlipidemia, unspecified; K21.9 Gastro-esophageal reflux disease without esophagitis; Z90.49 Acquired absence of other specified parts of digestive tract; Z98.890 Other specified postprocedural states; Z79.84 Long term (current) use of oral hypoglycemic drugs; Z79.899 Other long term (current) drug therapy; Z88.2 Allergy status to sulfonamides; Z98.84 Bariatric surgery status; Z87.19 Personal history of other diseases of the digestive system; Z82.49 Family history of ischemic heart disease and other diseases of the circulatory system; Z80.3 Family history of malignant neoplasm of breast
CPT/HCPCS: 97116; 97161; 64448; 76942; 85025; 88300; 73560; 27447; C1713; C1776; J2250; J0171; J1100; J0690 ×2; J2405; J3010; J1885; J2795 ×2; J2704; J0735

== ENCOUNTER → 2020-04-22 | Outpatient (CLI) | payer OTHER ==
[2020-04-22 16:12] VITALS: BP 148/87; PULSE 55; RESP 18; TEMP 98.6; BMI 43.2
--- NOTE | 2020-04-22 16:45 | P.PN ---
Subjective Progress Note Date: 04/22/20 DATE OF SERVICE: 04/22/2020 CHIEF COMPLAINT: Status post sleeve gastrectomy HISTORY OF PRESENT ILLNESS: Whitney Shelby is a 54-year-old female status post sleeve gastrectomy, 05/14/2018. She is 2 years out. She comes in with new weight gain. She comes in with new thyroid problems. She denies gastroesophageal reflux disease. She denies new abdominal pain. She also has severe osteoarthritis of the knees and had repair. At height of 5 feet 5 inches, her ideal body weight is 149 pounds. Her highest weight was 350 pounds. Today she comes in 259 pounds from 247 pounds, 1 year ago. She has gained 12 pounds in 1 year. Her body mass index highest was 58.4. Today her BMI is 43.3. Lifetime weight loss of 91 pounds. Percent lifetime excess weight loss is 45 %. PAST MEDICAL HISTORY: 1. Morbid obesity due to excess calories 2. Body mass index of 58.4, initial 3. Hyperlipidemia 4. Diabetes type 2, [id number] 5. Hypertensive heart disease 6. Seasonal ALLERGIES 7. Osteoarthritis bilateral knees PAST SURGICAL HISTORY: 1. Tonsillectomy 2. Cholecystectomy 3. Bilateral knee arthroscopy 4. Left knee replacement HOME MEDICATIONS: ALLERGIES: Home Medications Medication Instructions Recorded Confirmed Levocetirizine Dihydrochloride 5 mg PO HS 02/01/18 04/22/20 [Xyzal] Calcium Citrate 500 mg PO TID 11/26/18 04/22/20 Ferrous Sulfate [Iron (65 MG 325 mg PO BID 11/26/18 04/22/20 Elemental)] Multivit-Min/Iron/Folic/Lutein 1 each PO DAILY 11/26/18 04/22/20 [Centrum Silver Women Tablet] Magnesium 200 mg PO DAILY 01/09/20 04/22/20 Previous Rx's Medication Instructions Recorded Metoprolol Succinate (ER) [Toprol 50 mg PO QAM #0 01/15/20 XL] Allergies Allergy/AdvReac Type Severity Reaction Status Date / Time Sulfa (Sulfonamide Allergy Rash/Hives Verified 04/22/20 16:43 Antibiotics) SOCIAL HISTORY: No Past tobacco use. FAMILY HISTORY: No family history of ulcerative colitis disease or Crohn's disease. Family history of morbid obesity. No lupus in the family. No reports of stomach or esophageal cancer. REVIEW OF ORGAN SYSTEMS: CONSTITUTIONAL: At height of 5 feet 5 inches, her ideal body weight is 149 pounds. Her highest weight was 350 pounds. Her body mass index highest was 58.4 HEENT: Denies any active troubles with vision or hearing. No troubles with swallowing. ENDOCRINE: Has diabetes. No hypothyroidism. CARDIOVASCULAR: No reports of palpitations or heart attacks or chest pain. Has hypertensive heart disease. RESPIRATORY: Has daytime somnolence. No asthma. GI: Denies any bright red blood per rectum. No diarrhea. No constipation. MUSCULOSKELETAL: Has lower back pain and joint pain. Has osteoarthritis of the knees. NEURO: No headaches. No seizure disorders. PSYCH: No depression. No suicidal ideation. RHEUMATOLOGIC: No lupus. No rheumatoid arthritis. HEMATOLOGIC: Denies any abnormal bleeding or bruising. No personal history of DVTs. SKIN: No rash. No skin cancer. PHYSICAL EXAM: VITAL SIGNS: Height 5 foot 5 inches, weight 259 pounds. BMI 43.3 Vital Signs Temp 98.6 F 04/22/20 16:09 Pulse 55 L 04/22/20 16:09 Resp 18 04/22/20 16:09 BP 148/87 04/22/20 16:09 Pulse Ox GENERAL: Well-developed in no acute distress. HEENT: No scleral icterus. Extraocular movements grossly intact. Hears conversational speech. No nasal drainage. NECK: Supple without lymphadenopathy. CHEST: Nonlabored respirations with equal bilateral excursions. CARDIOVASCULAR: Regular rate and regular rhythm. Distal 2+ pulses. ABDOMEN: Obese, soft. Nontender. No hernia. MUSCULOSKELETAL: No clubbing, cyanosis. NEURO: No focal or lateralizing signs. Cranial nerves 2 through 12 grossly within normal limits. PSYCH: Appropriate affect. Alert and oriented to person, place and time. SKIN: Good skin turgor. Well perfused. ASSESSMENT: 1. Morbid obesity due to excess calories 2. Body mass index of 58.4, initial to 43.3 3. Hyperlipidemia 4. Diabetes type 2, [id number] 5. Hypertensive heart disease 6. Seasonal ALLERGIES 7. Osteoarthritis bilateral knees 8. Hiatal hernia 9. Gastric ulcer 10. Chronic gastritis 11. Status post sleeve gastrectomy 12. Iron deficiency anemia 13. Panniculitis PLAN: 1. Recommend bariatric labs. 2. Will need correction of metabolic deficiencies 3. Dietary surveillance and counseling with 2 week high protein low carbohydrate diet advised. Objective - Vital Signs Vital signs: Vital Signs Temp 98.6 F 04/22/20 16:09 Pulse 55 L 04/22/20 16:09 Resp 18 04/22/20 16:09 BP 148/87 04/22/20 16:09 Pulse Ox Intake & Output 04/21/20 04/22/20 04/22/20 18:59 06:59 18:59 Weight 117.934 kg
== END | disposition home or self-care (01) ==
LOC: BARWHC3 15:06
PROVIDERS: ATTEND Surgery Plastic and Reconstructive Surgery
DX: E66.01 Morbid (severe) obesity due to excess calories (principal); E78.5 Hyperlipidemia, unspecified; I11.9 Hypertensive heart disease without heart failure; M17.0 Bilateral primary osteoarthritis of knee; Z68.43 Body mass index [BMI] 50.0-59.9, adult; E11.9 Type 2 diabetes mellitus without complications; J30.2 Other seasonal allergic rhinitis; K25.9 Gastric ulcer, unspecified as acute or chronic, without hemorrhage or perforation; K44.9 Diaphragmatic hernia without obstruction or gangrene; K29.50 Unspecified chronic gastritis without bleeding; D50.9 Iron deficiency anemia, unspecified; M79.3 Panniculitis, unspecified; Z98.84 Bariatric surgery status
CPT/HCPCS: 99211

== ENCOUNTER → 2020-05-01 | Outpatient (CLI) | payer OTHER ==
[2020-05-01 12:36] LABS: ALT 10 U/L (4-34); AST 23 U/L (14-36); African American GFR (CKD) >90 (>60 ml/min/1.73 sqM); Albumin 4.4 g/dL (3.5-5.0); Albumin/Globulin Ratio 1.7; Alkaline Phosphatase 75 U/L (38-126); Anion Gap 8 mmol/L; Blood Urea Nitrogen 19 mg/dL (7-17); Carbon Dioxide 31 mmol/L (22-30); Chloride 101 mmol/L (98-107); Globulin 2.6 g/dL; Glucose 90 mg/dL (74-99); Non-African American GFR(CKD) >90 (>60 ml/min/1.73 sqM); Phosphorus 4.2 mg/dL (2.5-4.5); Potassium 4.4 mmol/L (3.5-5.1); Sodium 140 mmol/L (137-145); Total Bilirubin 0.4 mg/dL (0.2-1.3)
[2020-05-01 13:21] LABS: Cholesterol 238 mg/dL (<200); HDL Cholesterol 35 mg/dL (40-60); LDL Cholesterol,Calculated 169 mg/dL (0-99); Triglycerides 169 mg/dL (<150)
[2020-05-01 20:15] LABS: HCT 44.4 % (37.2-46.3); HGB 14.5 g/dL (12.0-15.0); MCH 29.3 pg (27.0-32.0); MCHC 32.7 g/dL (32.0-37.0); MCV 89.7 fL (80.0-97.0); Mean Platelet Volume 10.6 fL (9.5-12.2); Platelet Count 194 X 10*3/uL (140-440); RBC 4.95 X 10*6/uL (4.10-5.20); RDW 12.4 % (11.5-14.5); WBC 5.27 X 10*3/uL (4.50-10.00)
[2020-05-01 20:34] LABS: INR 0.97 (0.90-1.11); Partial Thromboplastin Time 27.3 sec (23.5-31.0); Prothrombin Time 10.6 sec (9.9-11.9)
[2020-05-01 23:32] LABS: Hemoglobin A1C 5.5 % (4.0-6.0)
[2020-05-02 06:25] LABS: Iron 82 ug/dL (50-170); Total Iron Binding Capacity 295 ug/dL (228-460)
[2020-05-02 06:33] LABS: Ferritin 179.4 ng/mL (10.0-291.0)
[2020-05-02 07:08] LABS: Folate, Serum 11.2 ng/mL
[2020-05-04 15:52] LABS: Zinc, Serum 69 ug/dL (60-130)
[2020-05-04 18:26] LABS: Selenium 163 mcg/L (63-160)
[2020-05-05 06:36] LABS: Vitamin A 60 ug/dL (38-106)
[2020-05-05 06:57] LABS: Vit B1(Thiamine) 83 ug/L (38-122)
== END | disposition home or self-care (01) ==
LOC: LABWHC1 10:40
PROVIDERS: ATTEND Surgery Plastic and Reconstructive Surgery
DX: E55.9 Vitamin D deficiency, unspecified (principal); E66.01 Morbid (severe) obesity due to excess calories; E89.1 Postprocedural hypoinsulinemia; D50.8 Other iron deficiency anemias; K90.89 Other intestinal malabsorption
CPT/HCPCS: 36415; 80053; 80061; 82306; 82525; 82607; 82728; 82746; 83036; 83540; 83550; 83735; 83970; 84100; 84134; 84255; 84425; 84443; 84590; 84630; 85027; 85610; 85730

== ENCOUNTER → 2022-08-24 | Outpatient (CLI) | payer BC ==
[2022-08-24 17:05] LABS: Partial Thromboplastin Time 24.1 sec (22.0-30.0); Prothrombin Time 10.4 sec (9.0-12.0)
[2022-08-25 02:12] LABS: HCT 44.6 % (37.2-46.3); MCH 28.6 pg (27.0-32.0); MCHC 31.4 d/dL (32.0-37.0); Mean Platelet Volume 10.4 FL (9.5-12.2); NRBC Per 100 WBC 0 X 10*3/uL (0.00-0.01); Platelet Count 219 X 10*3/uL (140-440); RDW 12.2 % (11.5-14.5); WBC 7.39 X 10*3/uL (4.50-10.00)
[2022-08-25 02:48] LABS: ALT 11 U/L (8-44); AST 18 U/L (13-35); Albumin 4.6 d/dL (3.8-4.9); Alkaline Phosphatase 103 U/L (41-126); BUN/Creat Ratio 24.88 Ratio (12.00-20.00); Blood Urea Nitrogen 19.9 mg/dL (9.0-27.0); Calcium 10.6 mg/dL (8.7-10.3); Carbon Dioxide 25.6 mmol/L (21.6-31.8); Chloride 102 mmol/L (96-109); Chol/HDL Ratio 4.01 Ratio; Globulin 2.3 d/dL (1.6-3.3); Glucose 99 mg/dL (70-110); Iron 46 UG/DL (50-170); LDL Cholesterol,Calculated 107.3 mg/dL (0.0-131.0); Magnesium 2.1 mg/dL (1.5-2.4); Phosphorus 3.7 mg/dL (2.4-5.1); Potassium 4.2 mmol/L (3.5-5.5); Sodium 140 mmol/L (135-145); Total Bilirubin 0.3 mg/dL (0.3-1.2); Total Iron Binding Capacity 393 UG/DL (228-460); Total Protein 6.9 d/dL (6.2-8.2)
[2022-08-25 02:49] LABS: Ferritin 70.9 ng/mL (10.0-291.0)
[2022-08-25 03:01] LABS: Prealbumin 23.3 mg/dL (18.0-42.0)
[2022-08-25 10:47] LABS: Zinc, Serum 109 ug/dL (60-130)
== END | disposition home or self-care (01) ==
LOC: LABWHC1 15:05
PROVIDERS: ATTEND Surgery Plastic and Reconstructive Surgery
DX: E66.01 Morbid (severe) obesity due to excess calories (principal); D50.8 Other iron deficiency anemias; K91.2 Postsurgical malabsorption, not elsewhere classified; E89.1 Postprocedural hypoinsulinemia; E44.0 Moderate protein-calorie malnutrition; E44.1 Mild protein-calorie malnutrition; E45 Retarded development following protein-calorie malnutrition; E46 Unspecified protein-calorie malnutrition; E55.9 Vitamin D deficiency, unspecified; K74.1 Hepatic sclerosis; N19 Unspecified kidney failure; T56.894A Toxic effect of other metals, undetermined, initial encounter; K50.90 Crohn's disease, unspecified, without complications
CPT/HCPCS: 36415; 80053; 80061; 82306; 82525; 82607; 82728; 82746; 83036; 83540; 83550; 83735; 83970; 84100; 84134; 84255; 84425; 84443; 84590; 84630; 85027; 85610; 85730

== ENCOUNTER 2022-10-03 06:47 | Day surgery (SDC) | payer BC ==
[2022-09-26 13:55] VITALS: BMI 48.4
[2022-10-03 07:08] VITALS: TEMP 97.1
[2022-10-03 07:15] LABS: Glucose,Whole Blood 87 mg/dL (70-110)
[2022-10-03] MEDS: LACTATED RINGERS 1,000 ML IV SCH ×2 (07:15→07:27)
[2022-10-03] MEDS ORDERED: LIDOCAINE 2% INJ 20 MG/ML (2 ML VIAL) ONE (07:28)
[2022-10-03] MEDS ORDERED: PROPOFOL 10 MG/ML 20 ML VIAL IV ONE (07:28)
--- NOTE | 2022-10-03 07:40 | P.GSHP ---
History of Present Illness H&P Date: 10/03/22 CHIEF COMPLAINT: GERD and colon screen HISTORY OF PRESENT ILLNESS: The patient is a 57-year-old female who presents with gastroesophageal reflux disease and need for colon screen. Upper and lower endoscopy were offered for further evaluation and management. PAST MEDICAL HISTORY: Please see list. PAST SURGICAL HISTORY: Please see list. MEDICATIONS: Please see list. ALLERGIES: Please see list. SOCIAL HISTORY: No illicit drug use FAMILY HISTORY: No reports of Crohn disease or ulcerative colitis. REVIEW OF ORGAN SYSTEMS: CONSTITUTIONAL: No reports of fevers or chills. GI: Denies any blood in stools or constipation. PHYSICAL EXAM: VITAL SIGNS: Stable GENERAL: Well-developed pleasant in no acute distress. HEENT: No scleral icterus. Extraocular movements grossly intact. Moist buccal mucosa. NECK: Supple without lymphadenopathy. CHEST: Unlabored respirations. Equal bilateral excursions. CARDIOVASCULAR: Regular rate and rhythm. Distal 2+ pulses. ABDOMEN: Soft, nondistended. MUSCULOSKELETAL: No clubbing, cyanosis, or edema. ASSESSMENT: 1. Gastroesophageal reflux disease 2. Colon screen. PLAN: 1. Recommend proceeding with an upper and lower endoscopy Past Medical History Past Medical History: GERD/Reflux, Hyperlipidemia, Hypertension, Osteoarthritis (OA) Additional Past Medical History / Comment(s): EGD SHOWED GASTRIC ULCER, HIATAL HERNIA. PAIN IN KNEES. currently off htn, cholesterol and diabetes meds after bariatric sx in April 2018 since then no diabetic meds. colonoscopy polyps History of Any Multi-Drug Resistant Organisms: None Reported Past Surgical History: Bariatric Surgery, Cholecystectomy, Orthopedic Surgery, Tonsillectomy Additional Past Surgical History / Comment(s): bilateral knee arthroscopic surgery. EGD sleeve gastrectomy 05-14-18 both knee replaced 2019 Past Anesthesia/Blood Transfusion Reactions: No Reported Reaction Additional Past Anesthesia/Blood Transfusion Reaction / Comment(s): no blood transfusion Smoking Status: Never smoker - Past Family History Mother Family Medical History: Cancer Additional Family Medical History / Comment(s): multiple myeloma,breast cancer Medications and Allergies Home Medications Medication Instructions Recorded Confirmed Type RX: Levocetirizine Dihydrochloride 5 mg PO HS 02/01/18 10/03/22 History [Xyzal] RX: Calcium Citrate 500 mg PO TID 11/26/18 09/26/22 History RX: Ferrous Sulfate [Iron (65 MG 325 mg PO BID 11/26/18 09/26/22 History Elemental)] RX: Multivit-Min/Iron/Folic/Lutein 1 each PO DAILY 11/26/18 09/26/22 History [Centrum Silver Women Tablet] RX: Magnesium 200 mg PO DAILY 01/09/20 09/26/22 History RX: Metoprolol Succinate (ER) 50 mg PO QAM #0 01/15/20 10/03/22 Rx [Toprol XL] Atorvastatin [Lipitor] 10 mg PO DAILY 09/26/22 10/03/22 History Allergies Allergy/AdvReac Type Severity Reaction Status Date / Time Sulfa (Sulfonamide Allergy Rash/Hives Verified 10/03/22 07:09 Antibiotics) Surgical - Exam Vital Signs Temp Pulse Resp BP Pulse Ox 97.1 F L 60 17 162/72 98 10/03/22 07:03 10/03/22 07:03 10/03/22 07:03 10/03/22 07:03 10/03/22 07:03
--- NOTE | 2022-10-03 07:42 | P.PCN ---
Date of Procedure: 10/03/22 Description of Procedure: PREOPERATIVE DIAGNOSIS: Gastroesophageal reflux disease. Morbid obesity. POSTOPERATIVE DIAGNOSIS: Gastroesophageal reflux disease. Morbid obesity. Gastritis with bleeding Diaphragmatic hiatal hernia OPERATION: Esophagogastroduodenoscopy with biopsies along antrum and duodenum SURGEON: Mayra Leyva MD ANESTHESIA: MAC. INDICATIONS: The patient is a 57-year-old female who presents with reflux disease. Benefits and risks of the procedure were described. Informed consent was obtained. DESCRIPTION: The patient was brought into the endoscopy suite and laid in the left lateral decubitus position. An Olympus gastroscope was passed along the posterior oropharynx down to the distal esophagus where the squamocolumnar junction was encountered at 35 cm from the incisors. The stomach was entered and no bile reflux was found. Additional findings are listed below. Biopsies with cold forceps were obtained of the antrum. The first through third portion of the duodenum was examined. Retroflexion of the scope confirmed Hill grade 3 lower esophageal valve. The squamocolumnar junction demonstrated LA grade B erosive esophagitis. The stomach was desufflated. The patient tolerated the procedure well. FINDINGS: Squamocolumnar junction 35 cm from the incisors. Diaphragmatic hiatus at 40 cm. Hiatal hernia, 5 cm Hill grade 3 lower esophageal valve. LA grade B erosive esophagitis. Biopsies obtained of the duodenum. Chronic gastritis with bleeding andbiopsies obtained. RECOMMENDATIONS: Upper endoscopy as needed. Recommend repair hiatal hernia May benefit conversion to gastric bypass
[2022-10-03 08:05] VITALS: RESP 16
[2022-10-03 08:19] VITALS: BP 120/78; PULSE 61
--- NOTE | 2022-10-03 08:46 | P.PCN ---
Date of Procedure: 10/03/22 Description of Procedure: PREOPERATIVE DIAGNOSIS: Personal history of colon polyps Colonoscopy screening POSTOPERATIVE DIAGNOSIS: Tubular adenoma ascending colon Tubular adenoma descending colon OPERATION: Colonoscopy to the ileocecal valve and appendiceal orifice, cecum Colonoscopy with cold forceps biopsy SURGEON: Mayra Leyva MD. ANESTHESIA: MAC. INDICATIONS: The patient is an 57-year-old male who presents personal history of colon polyps. Last colonoscopy 5 years. Benefits and risks were described and informed consent was obtained. DESCRIPTION OF PROCEDURE: The patient had undergone Sutab prep. The patient had been brought into the operating room and laid in the left lateral decubitus position. After adequate intravenous sedation, the rectum was examined with 2% lidocaine jelly. The prostate was unremarkable. External hemorrhoids were encountered. The rectal tone was within normal limits. No lesions were palpated in the rectal vault. An Olympus colonoscope was advanced until the cecum, ileocecal valve and appendiceal orifice were clearly viewed. The prep was excellent. No large sigmoid diverticulosis was encountered. Colonic polyps were found and removed. No evidence of focal colitis was found. Retroflexion of the scope demonstrated grade 2 internal hemorrhoids without active bleeding or inflammation. The colon was desufflated. The patient had tolerated the procedure well. Withdrawal time was over 6 minutes. FINDINGS: Aronchick preparation quality scale 1 (1-5) Internal hemorrhoids, grade 2 External hemorrhoids, grade 2. No arteriovenous malformations. No large sigmoid diverticulosis Removal of 2 polyps: - Cold forceps biopsy descending colon, 4 mm polyp. - Cold forceps biopsy ascending colon, 5 mm polyp. No focal colitis. RECOMMENDATIONS: Repeat colonoscopy 3 years, 2025 Plan - Discharge Summary Discharge Rx Participant: No New Discharge Prescriptions: Continue Levocetirizine Dihydrochloride [Xyzal] 5 mg PO HS Ferrous Sulfate [Iron (65 MG Elemental)] 325 mg PO BID Calcium Citrate 500 mg PO TID Multivit-Min/Iron/Folic/Lutein [Centrum Silver Women Tablet] 1 each PO DAILY Magnesium 200 mg PO DAILY Metoprolol Succinate (ER) [Toprol XL] 50 mg PO QAM #0 Atorvastatin [Lipitor] 10 mg PO DAILY Discharge Medication List Levocetirizine Dihydrochloride [Xyzal] 5 mg PO HS 02/01/18 [History] Calcium Citrate 500 mg PO TID 11/26/18 [History] Ferrous Sulfate [Iron (65 MG Elemental)] 325 mg PO BID 11/26/18 [History] Multivit-Min/Iron/Folic/Lutein [Centrum Silver Women Tablet] 1 each PO DAILY 11/26/18 [History] Magnesium 200 mg PO DAILY 01/09/20 [History] Metoprolol Succinate (ER) [Toprol XL] 50 mg PO QAM #0 01/15/20 [Rx] Atorvastatin [Lipitor] 10 mg PO DAILY 09/26/22 [History] [facility] [facility] [place] [place] [facility] [place] Patient Instructions/Handouts: Hiatal Hernia (IP), Colorectal Polyps (GEN) Activity/Diet/Wound Care/Special Instructions: Repeat colonoscopy in 3 years, 2025 Discharge Disposition: HOME SELF-CARE
== END 2022-10-03 09:08 | disposition home or self-care (01) ==
LOC: ORWHC2ENDO 06:47
PROVIDERS: ATTEND Surgery Plastic and Reconstructive Surgery
DX: Z12.11 Encounter for screening for malignant neoplasm of colon (principal); D12.2 Benign neoplasm of ascending colon; K21.9 Gastro-esophageal reflux disease without esophagitis; E66.01 Morbid (severe) obesity due to excess calories; K44.9 Diaphragmatic hernia without obstruction or gangrene; K29.71 Gastritis, unspecified, with bleeding; K29.50 Unspecified chronic gastritis without bleeding; K64.1 Second degree hemorrhoids; Z86.010 Personal history of colon polyps; K29.80 Duodenitis without bleeding; E78.5 Hyperlipidemia, unspecified; M19.90 Unspecified osteoarthritis, unspecified site; I10 Essential (primary) hypertension; Z90.89 Acquired absence of other organs; Z90.49 Acquired absence of other specified parts of digestive tract; Z80.3 Family history of malignant neoplasm of breast; Z79.899 Other long term (current) drug therapy
CPT/HCPCS: 88305; 45380; 43239; J2704; J2001

== ENCOUNTER → 2022-10-19 | Outpatient (CLI) | payer BC ==
[2022-10-19 16:36] VITALS: BP 162/81; PULSE 69; TEMP 97.5; BMI 50.9
== END ==
LOC: BARWHC3 15:50
PROVIDERS: ATTEND Surgery Plastic and Reconstructive Surgery
DX: Z53.9 Procedure and treatment not carried out, unspecified reason (principal)
CPT/HCPCS: 99211

== ENCOUNTER → 2022-12-30 | Outpatient (CLI) | payer BC ==
[2022-12-30 16:41] LABS: Basophils # (A) 0.03 X 10*3/uL (0.00-0.10); Basophils % (A) 0.4 %; Eosinophils # (A) 0.12 X 10*3/uL (0.04-0.35); Eosinophils % (A) 1.6 %; HCT 44.5 % (37.2-46.3); HGB 14.7 d/dL (12.0-15.0); Lymphocytes # (A) 1.41 X 10*3/uL (0.90-5.00); Lymphocytes % (A) 18.6 %; MCH 29.4 pg (27.0-32.0); Mean Platelet Volume 10.7 FL (9.5-12.2); Monocytes # (A) 0.64 X 10*3/uL (0.20-1.00); Monocytes % (A) 8.4 %; NRBC Per 100 WBC 0 X 10*3/uL (0.00-0.01); Neutrophils # (A) 5.36 X 10*3/uL (1.80-7.70); Neutrophils % (A) 70.7 %; Platelet Count 240 X 10*3/uL (140-440); RDW 12.9 % (11.5-14.5); WBC 7.58 X 10*3/uL (4.50-10.00)
[2022-12-30 21:38] LABS: ALT 14 U/L (8-44); AST 23 U/L (13-35); Albumin 4.7 d/dL (3.8-4.9); Albumin/Globulin Ratio 2.14 Ratio (1.60-3.17); Alkaline Phosphatase 99 U/L (41-126); BUN/Creat Ratio 20.56 Ratio (12.00-20.00); Blood Urea Nitrogen 18.5 mg/dL (9.0-27.0); Calcium 10.1 mg/dL (8.7-10.3); Chloride 100 mmol/L (96-109); Globulin 2.2 d/dL (1.6-3.3); Glucose 114 mg/dL (70-110); Potassium 3.9 mmol/L (3.5-5.5); Sodium 140 mmol/L (135-145); Total Bilirubin 0.3 mg/dL (0.3-1.2); Total Protein 6.9 d/dL (6.2-8.2)
== END | disposition home or self-care (01) ==
LOC: LABPAT 11:52
PROVIDERS: ATTEND Surgery Plastic and Reconstructive Surgery
DX: Z01.812 Encounter for preprocedural laboratory examination (principal)
CPT/HCPCS: 80053; 85025; 86850; 86900; 86901

== ENCOUNTER 2023-01-09 06:44 | Inpatient (IN) | payer BC ==
[~2023-01-09 06:44] MED LIST changes: -ACETAMINOPHEN TAB 500 MG TAB PO ONE; +ACETAMINOPHEN TAB 500 MG TAB PO PRN; +HEPARIN SODIUM,PORCINE/PF 5,000 UNIT/0.5 ML SYRINGE SQ PRN; -HYDROmorphone 0.5 MG/0.5 ML SYRINGE IVP PRN; -MELOXICAM 7.5 MG TAB PO ONE; -ONDANSETRON 4 MG/2 ML VIAL IVP ONE; +ONDANSETRON 4 MG/2 ML VIAL IVP PRN; -ROPIVACAINE 246.25 MG, EPINEPHrine 0.5 MG, KETOROLAC 30 MG, cloNIDine HCL/PF 80 MCG, WA... MISCELLANE ONE; -TRANEXAMIC ACID 1,000 MG in SODIUM CHLORIDE 0.9% 100 ML IVPB ONE; +ceFAZolin 3 GM in SODIUM CHLORIDE 0.9% 100 ML IVPB PRN
[2023-01-09] MEDS ORDERED: SCOPOLAMINE 1 MG/72 HR PATCH TRANSDERM STA (06:49)
[2023-01-09] MEDS ORDERED: LIDOCAINE 1% (10MG/ML) FOR IV START INTRADERMA PRN (06:49)
[2023-01-09] MEDS ORDERED: HYDROmorphone 0.5 MG/0.5 ML SYRINGE IVP PRN (06:49)
[2023-01-09] MEDS ORDERED: DEXAMETHASONE SOD PHOSPHATE 4 MG/ML 1 ML VIAL IV ONE (06:49)
[2023-01-09] MEDS ORDERED: ONDANSETRON 4 MG/2 ML VIAL IVP ONE (06:49)
--- NOTE | 2023-01-09 06:49 | P.GSHP ---
History of Present Illness H&P Date: 01/09/23 CHIEF COMPLAINT: Paraesophageal hiatal hernia with gastroesophageal reflux disease. HISTORY OF PRESENT ILLNESS: The patient is a 57-year-old female who presents with symptomatic paraesophageal hiatal hernia over one year with gastroesophageal reflux disease. She has completed upper endoscopy workup. Now she presents for surgical intervention. PAST MEDICAL HISTORY: Please see list. PAST SURGICAL HISTORY: Please see list. MEDICATIONS: Please see list. ALLERGIES: Please see list. SOCIAL HISTORY: No illicit drug use FAMILY HISTORY: No reports of Crohn disease or ulcerative colitis. REVIEW OF ORGAN SYSTEMS: CONSTITUTIONAL: No reports of fevers or chills. GI: Denies any blood in stools or constipation. PHYSICAL EXAM: VITAL SIGNS: Stable GENERAL: Well-developed pleasant and in no acute distress. HEENT: No scleral icterus. Extraocular movements grossly intact. Moist buccal mucosa. NECK: Supple without lymphadenopathy. CHEST: Unlabored respirations. Equal bilateral excursions. CARDIOVASCULAR: Regular rate and rhythm. Distal 2+ pulses. ABDOMEN: Soft, nondistended. No peritoneal signs. MUSCULOSKELETAL: No clubbing, cyanosis, or edema. SKIN: Well-perfused. Good skin turgor. REPORTS: Upper endoscopy demonstrates paraesophageal hiatal hernia REPORTS: Cardiology risk assessment obtained. Please see chart. ASSESSMENT: 1. Diaphragmatic paraesophageal hiatal hernia with severe gastroesophageal reflux disease. PLAN: 1. Recommend proceeding with a robotic paraesophageal hiatal hernia with possible mesh. 2. Benefits and risks of surgical intervention was discussed including possibility of open technique. 3. Inpatient hospitalization recommended of 2 nights 4. DVT prophylaxis. 5. Antibiotic prophylaxis. 6. She has also completed a very low caloric high-protein diet to address underlying hepatomegaly. 7. Non narcotic pain management including abdominal wall block described 8. Blood sugar glucose described. 9. Weight loss management described. 10. She is elevated risk due to prior gastric procedures and morbid obesity Past Medical History Past Medical History: Diabetes Mellitus, GERD/Reflux, Hyperlipidemia, Hypertension, Osteoarthritis (OA) Additional Past Medical History / Comment(s): Hx. GASTRIC ULCER, HIATAL HERNIA. off diabetes meds since bariatric sx in April 2018, hx. colon polyps History of Any Multi-Drug Resistant Organisms: None Reported Past Surgical History: Bariatric Surgery, Cholecystectomy, Joint Replacement, Orthopedic Surgery, Tonsillectomy Additional Past Surgical History / Comment(s): bilateral knee arthroscopic surgery. EGD, sleeve gastrectomy 05-14-18, both knee replaced 2019 Past Anesthesia/Blood Transfusion Reactions: No Reported Reaction Additional Past Anesthesia/Blood Transfusion Reaction / Comment(s): no blood transfusion Smoking Status: Never smoker - Past Family History Mother Family Medical History: Cancer Additional Family Medical History / Comment(s): multiple myeloma,breast cancer Medications and Allergies Home Medications Medication Instructions Recorded Confirmed Type Levocetirizine Dihydrochloride 5 mg PO HS 02/01/18 01/03/23 History [Xyzal] Calcium Citrate 500 mg PO TID 11/26/18 01/03/23 History Ferrous Sulfate [Iron (65 MG 325 mg PO BID 11/26/18 01/03/23 History Elemental)] Multivit-Min/Iron/Folic/Lutein 1 each PO DAILY 11/26/18 01/03/23 History [Centrum Silver Women Tablet] Magnesium 200 mg PO DAILY 01/09/20 01/03/23 History Atorvastatin [Lipitor] 10 mg PO HS 09/26/22 01/03/23 History Omeprazole [PriLOSEC] 40 mg PO DAILY #30 cap 10/19/22 01/03/23 Rx Losartan [Cozaar] 25 mg PO DAILY 01/03/23 01/03/23 History Allergies Allergy/AdvReac Type Severity Reaction Status Date / Time Sulfa (Sulfonamide Allergy Rash/Hives Verified 01/03/23 11:32 Antibiotics)
[2023-01-09] MEDS ORDERED: METOCLOPRAMIDE 5 MG/ML 2 ML VIAL ONE (07:25)
[2023-01-09] MEDS: LACTATED RINGERS 1,000 ML IV SCH (07:25)
[2023-01-09] MEDS ORDERED: FAMOTIDINE 20 MG/2 ML VIAL IV ONE (07:27)
[2023-01-09 07:28] LABS: Glucose,Whole Blood 89 mg/dL (70-110)
[2023-01-09] MEDS ORDERED: PROPOFOL 10 MG/ML 20 ML VIAL IV ONE (08:38)
[2023-01-09] MEDS ORDERED: ROCURONIUM 10 MG/ML (5 ML VIAL) IV ONE (08:38)
[2023-01-09] MEDS ORDERED: fentaNYL (PF) 50 MCG/ML 2 ML AMP ONE (08:38)
[2023-01-09] MEDS ORDERED: SUCCINYLCHOLINE CHLORIDE 200 MG/10 ML VIAL IV ONE (08:38)
[2023-01-09] MEDS ORDERED: LIDOCAINE 1% INJ 10MG/ML (20 ML MDV) ONE (08:38)
[2023-01-09] MEDS ORDERED: MIDAZOLAM 2 MG/2 ML VIAL ONE (08:38)
[2023-01-09] MEDS ORDERED: ePHEDrine 50 MG/ML 1 ML VIAL ONE (08:38)
[2023-01-09] MEDS ORDERED: GLYCOPYRROLATE 0.2 MG/ML 2 ML VIAL ONE (08:38)
[2023-01-09] MEDS ORDERED: NEOSTIGMINE 1 MG/ML 10 ML VIAL ONE (08:38)
[2023-01-09] MEDS ORDERED: LIDOCAINE 0.5%-EPI 1:200,000 50 ML VIAL SQ ONE ×2 (09:09→09:15)
[2023-01-09] MEDS ORDERED: LACTATED RINGERS 1,000 ML IV ONE (09:57)
--- NOTE | 2023-01-09 10:20 | P.OP ---
Date of Procedure: 01/09/23 Description of Procedure: DESCRIPTION OF PROCEDURE(S): SURGEON: CLINT REINOSO MD PREOPERATIVE DIAGNOSES: 1. Gastroesophageal reflux disease, with erosive esophagitis 2. Paraesophageal hiatal hernia, midline, initial 3. Morbid obesity due to excess calories, BMI of 48.0 4. History of sleeve gastrectomy 5. Epigastric abdominal pain. 6. Hypertensive heart disease POSTOPERATIVE DIAGNOSES: 1. Gastroesophageal reflux disease, with erosive esophagitis 2. Paraesophageal hiatal hernia, midline, initial with incarceration, 4 x 3 cm, type II 3. Morbid obesity due to excess calories, BMI of 48.0 4. History of sleeve gastrectomy 5. Epigastric abdominal pain. 6. Hypertensive heart disease 7. Mediastinal tumor OPERATION: 1. Robotic-assisted da Anju Xi laparoscopic reduction and repair of initial incarcerated paraesophageal hiatal hernia, 4 x 3 cm, with [place] Biopatch A 8 x 8 cm. 2. Intraoperative esophagogastroscopy 3. Excision of mediastinal tumor, 4 x 3 cm ANESTHESIA: General with local anesthetic. ESTIMATED BLOOD LOSS: 5 mL Pathology: Mediastinal tumor COMPLICATIONS: None. FINDINGS: 1. Fatty lipoma mediastinal tumor distal esophagus 2. Sleeve reservoir dilated 3. Incarcerated upper pole of the stomach within the mediastinum with moderate dissection performed with incision of mediastinal hernia sac 4. 4 cm paraesophageal incarcerated diaphragmatic hiatal hernia with moderate dissection into the mediastinum 5. [place] Biopatch A onlay mesh placed. 6. Intra-abdominal esophageal length over 2 cm obtained INDICATIONS: The patient is a 57-year-old female who presents with epigastric abdominal pain, dysphagia, history of sleeve gastrectomy, gastroesophageal reflux recalcitrant to medical therapy with a symptomatic diaphragmatic hiatal hernia. Preoperative workup including upper endoscopy demonstrated hiatal hernia with erosive esophagitis. Given the severity of her symptoms, she had elected for surgical intervention. Benefits and risks including bleeding, infection, recurrence, dysphagia, injury to the lung, need for further surgery was described at length. Informed consent was obtained. DESCRIPTION: The patient was brought into the operating room and placed in supine position. Preoperatively she had received heparin subcutaneously for DVT prophylaxis. After general induction, the abdomen was prepped and draped in standard sterile fashion. The patient had previously voided prior to coming to the operating room. Ioban draping was placed along the abdomen. A timeout protocol was confirmed with the surgical team, for which the patient's name, procedure to be performed including DVT prophylaxis with bilateral SCDs, and preoperative antibiotics were also confirmed. A robotic da Anju Xi system was prepped and primed. At 15 cm from the xiphoid to just below the umbilicus, proposed port sites were marked with indelible marker along the left axillary line, left mid-clavicular line with each ports were marked 10 cm from each other. A 5 mm 0 degrees laparoscopic trocar entry was performed along the left upper quadrant. The abdomen was insufflated to 15 mmHg pressure was tolerated well. Diagnostic laparoscopy demonstrated no injury to bowel, viscera. Severe peritoneal of the lower abdomen was identified and undisturbed. No additional adhesions were found along the liver or the sleeve gastrectomy to the liver. Next, one 8 mm robotic port was placed along the right upper abdomen. An 8-mm port was were placed along the left lateral abdominal wall. The camera 8-mm port was maintained along the epigastrium. Another 12 mm port was placed along the left upper abdominal wall after exchanging the 5 mm port. Please note that the ports were placed at least 20 cm away from the target anatomy. Care was taken to check that each robotic arm were safely away from collision with the bed or the patient. The patient was repositioned in reverse Trendelenburg position at 14-degrees after lowering the bed. The robot was docked above the left side of the patient. Using a grasper for arm 3, a grasper for arm 1, including vessel sealer for arm 2, the robotic system was docked and primed as described. Instruments were interchanged by the pediatric physician assistant. I had sat at the console. Initial attention was brought to hiatus. Circumferentially the dissection at the hiatus was performed using vessel sealer including blunt dissection. Previous retained suture was found along the hiatus consistent with a prior re pair. The hiatus hernia recurred anteriorly including a retained sac acting as a lead point for recurrence. To prevent any injury to the esophagus including proximal stomach, I performed an intraoperative upper endoscopy with the scope entering along the posterior oropharynx into the distal stomach and left in place as a bougie. The remnant gastrohepatic ligament was cleaved using a vessel sealer. Next, the phrenoesophageal ligament was mobilized and the distal esophagus was mobilized circumferentially. An incarcerated hernia sac was found into the mediastinum. As a result, deep dissection well into the mediastinum was needed to free the proximal sleeve gastrectomy including the mid to distal esophagus including mediastinal tumor at the hiatus. The left and right crura was identified. Circumferentially, the hernia sac was incised and brought into the abdominal cavity. Care was taken to avoid any gastrotomy to the incarcerated upper pole of the stomach. The measured defect was measured with a ruler consistent with 4 cm axial length and 3 cm in width. After dissection, the distal esophagus at least 2 cm was brought into the abdominal cavity. Once the hiatus and crura was dissected, 2-0 VLOC nonabsorbable suture was placed as a running suture to re-approximate the diaphragmatic hiatus posteriorly. To buttress the repair, a [place] Biopatch A was prepared along the back table and cut in a half anderson-hole fashion as to reinforce the repair as an underlay. The mesh was resized posteriorly placed along the crural repair and tagged using 2- 0 VLOC. I went to the head of the bed to perform intraoperative esophagogastroduodenoscopy. An Olympus gastroscope was passed through posterior oropharynx, where dilated sleeve reservoir was identified. The hiatus repair was confirmed from the incisors. The stomach was entered. The stomach had been desufflated. No evidence of leaks were found or mucosal defects of the esophagus or stomach. This concluded the endoscopic portion of the case. The robot was undocked from the patient. I re-scrubbed into the case. All instruments and pneumoperitoneum were evacuated from the abdominal cavity. The incisions were cleansed with dilute hydrogen peroxide with saline solution. Incisions were reapproximated using 4-0 Monocryl in an interrupted subcuticular fashion. The 12-mm port site fascial defect was less than 8 mm in size. Exofin was applied to the skin. Local anesthetic was infiltrated in all wounds for postop analgesia. Multiple intra-abdominal films were obtained. At the end of the procedure, needle, sponge, and instrument count was verified correct by the explosive ordnance technician. The patient had tolerated the procedure well and was taken to the postanesthesia unit in stable condition. Intraoperative films were reviewed with the patient's family who were pleased with the level of care.
[2023-01-09 13:04] LABS: Glucose,Whole Blood 140 mg/dL (70-110)
[2023-01-09] MEDS: D5-0.45% NACL WITH KCL 20MEQ/L 1,000 ML IV SCH ×2 (14:06→22:39)
[2023-01-09] MEDS: METOCLOPRAMIDE 5 MG/ML 2 ML VIAL IVP SCH ×2 (14:07→18:22)
[2023-01-09] MEDS: ONDANSETRON 4 MG/2 ML VIAL IVP SCH ×2 (14:08→18:21)
--- NOTE | 2023-01-09 15:10 | FL ---
EXAMINATION TYPE: FL esophagus cervic/pharynx DATE OF EXAM: 01/09/2023 HISTORY: Postop hiatal hernia repair. COMPARISON: NONE TECHNIQUE: A single contrast esophagram is performed utilizing Isovue 370. A total of 5 seconds of fluoroscopic time was utilized during procedure and 111 images obtained. Total dose area product (DA P) in uGy*m?, mGy*cm? (or similar) : Unable to obtain due to how old the machine is. FINDINGS: Contrast passes through the esophagus into the stomach. No evidence for leak obstruction. Mild tertia ry contractions identified. No evidence of hiatal hernia or stricture noted. IMPRESSION: 1. Postsurgical changes from hiatal hernia repair. No evidence for obstruction or leak. 2. Mild tertiary esophageal contractions.
[2023-01-09] MEDS: ceFAZolin 3 GM in SODIUM CHLORIDE 0.9% 100 ML IVPB SCH (16:48)
[2023-01-10] MEDS: ceFAZolin 3 GM in SODIUM CHLORIDE 0.9% 100 ML IVPB SCH (00:07)
[2023-01-10] MEDS: METOCLOPRAMIDE 5 MG/ML 2 ML VIAL IVP SCH ×2 (00:07→06:06)
[2023-01-10] MEDS: ONDANSETRON 4 MG/2 ML VIAL IVP SCH ×2 (00:07→05:53)
[2023-01-10 02:04] VITALS: RESP 16
[2023-01-10] MEDS: LACTATED RINGERS 1,000 ML IV SCH (07:34)
[2023-01-10 08:00] VITALS: BP 133/73; PULSE 54; TEMP 97.8
[2023-01-10] MEDS ORDERED: ENOXAPARIN 40 MG/0.4 ML SYRINGE SQ SCH (09:00)
[2023-01-10] MEDS ORDERED: LOSARTAN 25 MG TAB PO SCH (09:00)
--- NOTE | 2023-01-10 11:32 | P.DS ---
Providers Date of admission: 01/09/23 06:44 Expected date of discharge: 01/10/23 Attending physician: Mayra Leyva Consults: 01/09/23 06:49 Consult Physician Routine Consulting Provider: [facility] Consult Reason/Comments: [facility] Do you want consulting provider notified?: Yes Primary care physician: Kirt Bautista Hospital Course: Discharge diagnosis 1. Gastroesophageal reflux disease, with erosive esophagitis 2. Paraesophageal hiatal hernia, midline, initial with incarceration, 4 x 3 cm, type II 3. Morbid obesity due to excess calories, BMI of 48.0 4. History of sleeve gastrectomy 5. Epigastric abdominal pain. 6. Hypertensive heart disease 7. Mediastinal tumor Hospital course The patient is a 57-year-old female who presents with epigastric abdominal pain, dysphagia, history of sleeve gastrectomy, gastroesophageal reflux recalcitrant to medical therapy with a symptomatic diaphragmatic hiatal hernia. Patient is status post Robotic-assisted da Anju Xi laparoscopic reduction and repair of initial incarcerated paraesophageal hiatal hernia, 4 x 3 cm, with [place] Biopatch. Upper GI shows no evidence of leak or obstruction. Mild tertiary esophageal contractions. Patient is tolerating diet. Her pain is controlled. She has been up and ambulating. She is afebrile. Denies any difficulty urinating. She is stable for discharge. Physician Knifer Up note has been reviewed by physician. Signing provider agrees with the documented findings, assessment, and plan of care. Patient Condition at Discharge: Stable Plan - Discharge Summary Discharge Rx Participant: Yes New Discharge Prescriptions: New Simethicone 40 mg/0.6 ml Drops [Mylicon Drops] 40 mg PO PCHS PRN #30 ml PRN Reason: Gas Acetaminophen Tab [Tylenol] 1,000 mg PO Q6HR PRN #30 tablet PRN Reason: Pain bisacodyL [Dulcolax] 5 mg PO DAILY PRN #10 tab PRN Reason: Constipation Ondansetron Odt [Zofran Odt] 4 mg PO Q8HR PRN #9 tab PRN Reason: Nausea Continue Levocetirizine Dihydrochloride [Xyzal] 5 mg PO HS Omeprazole [PriLOSEC] 40 mg PO DAILY #30 cap Losartan [Cozaar] 25 mg PO DAILY Discontinued Ferrous Sulfate [Iron (65 MG Elemental)] 325 mg PO BID Calcium Citrate 500 mg PO TID Multivit-Min/Iron/Folic/Lutein [Centrum Silver Women Tablet] 1 each PO DAILY Magnesium 200 mg PO DAILY Atorvastatin [Lipitor] 10 mg PO HS Discharge Medication List Levocetirizine Dihydrochloride [Xyzal] 5 mg PO HS 02/01/18 [History] Omeprazole [PriLOSEC] 40 mg PO DAILY #30 cap 10/19/22 [Rx] Losartan [Cozaar] 25 mg PO DAILY 01/03/23 [History] Acetaminophen Tab [Tylenol] 1,000 mg PO Q6HR PRN #30 tablet 01/10/23 [Rx] Ondansetron Odt [Zofran Odt] 4 mg PO Q8HR PRN #9 tab 01/10/23 [Rx] Simethicone 40 mg/0.6 ml Drops [Mylicon Drops] 40 mg PO PCHS PRN #30 ml 01/10/23 [Rx] bisacodyL [Dulcolax] 5 mg PO DAILY PRN #10 tab 01/10/23 [Rx] Follow [facility]ment(s[facility] - 01/13/23 9:00 am Patient Instructions/Handouts: *Surgery [facility] - Scopalamine Patch Instructions, Laparoscopic Hiatal Hernia Repair (DC) Activity/Diet/Wound Care/Special Instructions: Liquid diet only for 2 weeks No lifting over 4 pounds in 4 weeks May Shower. No soaking in bath tubs for 2 weeks Please notify your surgeon if you develop nausea and vomiting including new onset of abdominal pain. Continue to use incentive spirometry to prevent pneumonias. Please continue to ambulate at home to prevent blood clots in legs. Follow-up at the bariatric center. May shower. Dressings to be discontinued by surgeon in the office. Drink 64 oz of fluid daily. Start protein shakes on . Notify bariatric center for temp over 101.0, increased pain, drainage from incisions. No straws or carbonated beverages. Liquid diet only. Sugar content should be less than 6 g to avoid dumping syndrome. Take MOM for constipation. CRUSH, OPEN, OR CUT TABLETS LARGER THAN A SIZE OF A TIC TAC Hold on taking vitamins and Lipitor until seen by surgeon Discharge Disposition: HOME SELF-CARE
== END 2023-01-10 11:10 | disposition home or self-care (01) | DRG 327 ==
LOC: 2ORMAIN 06:44 → 5NMEDONC 12:56
PROVIDERS: ADMIT Surgery Plastic and Reconstructive Surgery; ATTEND Surgery Plastic and Reconstructive Surgery
PROC: 8E0W4CZ Robotic Assisted Procedure of Trunk Region, Percutaneous Endoscopic Approach (ICD-10-PCS; 2023-01-09)
PROC: 0BUT4JZ Supplement Diaphragm with Synthetic Substitute, Percutaneous Endoscopic Approach (ICD-10-PCS; principal; 2023-01-09 08:30)
PROC: 0WBC4ZZ Excision of Mediastinum, Percutaneous Endoscopic Approach (ICD-10-PCS; 2023-01-09 08:30)
DX: K22.10 Ulcer of esophagus without bleeding (principal); K44.0 Diaphragmatic hernia with obstruction, without gangrene; Z68.42 Body mass index [BMI] 45.0-49.9, adult; K21.00 Gastro-esophageal reflux disease with esophagitis, without bleeding; E11.9 Type 2 diabetes mellitus without complications; E66.01 Morbid (severe) obesity due to excess calories; E78.5 Hyperlipidemia, unspecified; I11.9 Hypertensive heart disease without heart failure; D17.4 Benign lipomatous neoplasm of intrathoracic organs; Z79.899 Other long term (current) drug therapy; Z80.3 Family history of malignant neoplasm of breast; Z80.7 Family history of other malignant neoplasms of lymphoid, hematopoietic and related tissues; Z87.11 Personal history of peptic ulcer disease; Z87.19 Personal history of other diseases of the digestive system; Z98.84 Bariatric surgery status; Z88.2 Allergy status to sulfonamides
CPT/HCPCS: 43235; 74210; 88304

== ENCOUNTER → 2023-02-01 | Outpatient (CLI) | payer BC ==
[2023-02-01 13:04] VITALS: BP 144/87; PULSE 66; TEMP 97.7; BMI 47.4
--- NOTE | 2023-02-01 14:16 | P.BASOAP ---
Subjective Progress Note Date: 02/01/23 DATE OF SERVICE: 02/01/23 CHIEF COMPLAINT: Status post sleeve gastrectomy HISTORY OF PRESENT ILLNESS: Whitney Shelby is a 57-year-old female status post sleeve gastrectomy, 05/14/2018. She is 3 years out. She is status post hiatal hernia repair, 01/09/2023. She is less than 4 weeks post op. She denies g astroesophageal reflux disease. She is still taking omeprazole. No dysphagia. She denies abdominal pain. At height of 5 feet 5 inches, her ideal body weight is 149 pounds. Her highest weight was 350 pounds. Today she comes in 285 pounds from 259 pounds from 291 pounds, over 2 weeks ago. She has lost 6 pounds in 2 weeks. Her body mass index highest was 58.4. Today her BMI is 47.4. Lifetime weight loss of 65 pounds. Percent lifetime excess weight loss is 32 %. PHYSICAL EXAM: VITAL SIGNS: Height 5 foot 5 inches, weight 285 pounds. BMI 47.4 Vital Signs Temp 97.7 F 02/01/23 12:54 Pulse 66 02/01/23 12:54 Resp BP 144/87 02/01/23 12:54 Pulse Ox FiO2 Intake & Output 02/01/23 02/01/23 02/02/23 06:59 18:59 06:59 Weight 129.274 kg GENERAL: Well-developed in no acute distress. HEENT: No scleral icterus. Extraocular movements grossly intact. Hears conversational speech. No nasal drainage. NECK: Supple without lymphadenopathy. CHEST: Nonlabored respirations with equal bilateral excursions. CARDIOVASCULAR: Regular rate and regular rhythm. Distal 2+ pulses. ABDOMEN: Obese, soft. Nontender. No hernia. MUSCULOSKELETAL: No clubbing, cyanosis. NEURO: No focal or lateralizing signs. Cranial nerves 2 through 12 grossly within normal limits. PSYCH: Appropriate affect. Alert and oriented to person, place and time. SKIN: Good skin turgor. Well perfused. ASSESSMENT: 1. Gastroesophageal reflux disease due to hiatal hernia 2. Morbid obesity due to excess calories, Body mass index of 58.4, initial to 47.4 3. Hyperlipidemia 4. Diabetes type 2, [id number] 5. Hypertensive heart disease 6. Seasonal ALLERGIES 7. Osteoarthritis bilateral knees 8. Hiatal hernia, now status post. 9. Gastric ulcer 10. Chronic gastritis 11. Status post sleeve gastrectomy 12. Iron deficiency anemia 13. Panniculitis PLAN: 1. Continue bariatric sleeve diet 2. Recommend coming off omeprazole. 3. Continue for pounds lifting restriction for 4 weeks. 4. Return to work February 13 without restrictions. Objective - Vital Signs Vital signs: Vital Signs Temp 97.7 F 02/01/23 12:54 Pulse 66 02/01/23 12:54 Resp BP 144/87 02/01/23 12:54 Pulse Ox FiO2 Intake & Output 01/31/23 02/01/23 02/01/23 18:59 06:59 18:59 Weight 129.274 kg Assessment/Plan Plan: Date: 02/01/23 Initial Weight: 153.002 kg Initial BMI: 56.1 Current Weight: 129.274 kg Current BMI: 47.4 Type of Surgery: Total Volume in Band: Previous Volume: Volume Removed: Volume Added: Band Size:
== END ==
LOC: BARWHC3 12:32
PROVIDERS: ATTEND Surgery Plastic and Reconstructive Surgery
DX: K21.9 Gastro-esophageal reflux disease without esophagitis (principal); E66.01 Morbid (severe) obesity due to excess calories; E78.5 Hyperlipidemia, unspecified; E11.9 Type 2 diabetes mellitus without complications; I11.9 Hypertensive heart disease without heart failure; M17.0 Bilateral primary osteoarthritis of knee; K29.50 Unspecified chronic gastritis without bleeding; K25.9 Gastric ulcer, unspecified as acute or chronic, without hemorrhage or perforation; D50.9 Iron deficiency anemia, unspecified; M79.3 Panniculitis, unspecified; Z98.84 Bariatric surgery status; Z71.3 Dietary counseling and surveillance; Z87.19 Personal history of other diseases of the digestive system; Z68.42 Body mass index [BMI] 45.0-49.9, adult; Z88.2 Allergy status to sulfonamides; Z79.899 Other long term (current) drug therapy
CPT/HCPCS: 99211